=== PATIENT | male | born 1940 | race African-American/Black ===

== ENCOUNTER 2016-10-29 20:30 | Inpatient (IN) | payer MEDICARE, MEDICAID ==
[~2016-10-29] VITALS: Ht 185.4 cm; Wt 81.6 kg
[2016-10-29 20:31] VITALS: BP 127/81
[2016-10-29] MEDS ORDERED: LORazepam Inj 2mg/ml 1ml IV ONE (21:30)
[2016-10-29 22:01] LABS: BASOPHILS % (AUTO) 1.4 % (0.0-2.0); EOSINOPHILS % (AUTO) 4.3 % (0.0-3.0); LYMPHOCYTES % (AUTO) 25.8 % (20.0-45.0); MEAN CORPUSCULAR HEMOGLOBIN 30.4 PG (27.0-31.0); MEAN CORPUSCULAR HGB CONC 32.6 G/DL (32.0-36.0); MEAN CORPUSCULAR VOLUME 93 FL (80-99); MEAN PLATELET VOLUME 6.2 FL (6.5-10.1); MONOCYTES % (AUTO) 9.5 % (1.0-10.0); PLATELET COUNT 182 K/UL (150-450); RED BLOOD COUNT 4.03 M/UL (4.70-6.10); WHITE BLOOD COUNT 8.9 K/UL (4.8-10.8)
[2016-10-29 22:14] LABS: TROPONIN I < 0.30 ng/mL (<=0.30)
[2016-10-29 22:15] LABS: ALANINE AMINOTRANSFERASE 16 U/L (3-41); ALBUMIN/GLOBULIN RATIO 1.3 (1.0-2.7); ANION GAP 12 (5-15); ASPARTATE AMINO TRANSFERASE 18 U/L (5-40); CALCIUM 8.7 mg/dL (8.6-10.2); CARBON DIOXIDE 28 mEQ/L (20-30); CHLORIDE 101 mEQ/L (98-107); CREATININE 0.8 mg/dL (0.7-1.2); HEMOLYSIS 8; POTASSIUM 4.4 mEQ/L (3.4-4.9); SODIUM 141 mEQ/L (135-145); TOTAL PROTEIN 6.7 g/dL (6.6-8.7)
--- NOTE | 2016-10-29 22:15 | Emergency Room Report ---
History of Present Illness General Chief Complaint: General Complaint Source: Patient, EMS Present Illness HPI 75-year-old male who presents ED for evaluation. Per EMS patient is here to be evaluated for possible influenza and/or sepsis. There is a pop rate of influenza at the skilled nursing where the patient resides. Upon arrival patient showing no signs of distress. Patient has dementia. Unable to provide any additional history at this time. No reported fevers or chills. No reported cough. No reported chest pain or shortness of breath. No other aggravating relieving factors. No other associated symptoms Allergies: Coded Allergies: No Known Allergies (Unverified , 10/29/16) Patient History Past Medical History: HTN, GERD, dementia Past Surgical History: none Pertinent Family History: none Social History: Denies: alcohol use, drug use, smoking Immunizations: UTD Reviewed Nursing Documentation: PMH: Agreed, PSxH: Agreed Nursing Documentation-PMH Past Medical History: No History, Except For Hx Cardiac Problems: Yes Hx Hypertension: Yes Hx Gastrointestinal Problems: Yes - GERD History Of Psychiatric Problem: Yes - Dementia, schizopherenia, anemia Review of Systems All Other Systems: limited Physical Exam Vital Signs Date Time Temp Pulse Resp B/P Pulse Ox O2 Delivery O2 Flow Rate FiO2 10/29/16 20:25 97.0 56 16 127/81 94 Room Air Sp02 EP Interpretation: reviewed, normal General Appearance: no apparent distress, alert, GCS 15, non-toxic Head: normocephalic, atraumatic Eyes: bilateral eye PERRL, bilateral eye normal inspection ENT: hearing grossly normal, normal pharynx, no angioedema, normal voice Neck: full range of motion, supple/symm/no masses Respiratory: chest non-tender, lungs clear, normal breath sounds, speaking full sentences Cardiovascular #1: regular rate, rhythm, no edema Cardiovascular #2: 2+ carotid (R), 2+ carotid (L), 2+ radial (R), 2+ radial (L) , 2+ dorsalis pedis (R), 2+ dorsalis pedis (L) Gastrointestinal: normal bowel sounds, non tender, soft, non-distended, no guarding, no rebound Rectal: deferred Genitourinary: normal inspection, no CVA tenderness Musculoskeletal: back normal, gait/station normal, normal range of motion, non- tender Neurologic: other - dementa Psychiatric: other - dementia Reflexes: 3+ bicep (R), 3+ bicep (L), 3+ tricep (R), 3+ tricep (L), 3+ knee (R) , 3+ knee (L) Skin: normal color, no rash, warm/dry, well hydrated Lymphatic: no adenopathy Medical Decision Making Diagnostic Impression: Primary Impression: UTI (urinary tract infection) Qualified Codes: N39.0 - Urinary tract infection, site not specified Additional Impression: Generalized weakness ER Course Hospital Course 75-year-old male presenting to ED with generalized weakness. concern for influenza at skilled nursing Differential diagnoses include: Pneumonia, UTI, sepsis, dehydration, [place]/ unstable angina Clinical course Patient placed on stretcher. On tunnel mucker with stable vitals are ED course. After initial history and physical, I ordered labs, IV fluids, EKG, chest x-ray, blood cultures, UA. Labs - electrolytes ok, no leukocytosis, troponins negative, UA grossly positive for UTI, influenza negative CXR - no acute process Abx given. Case discussed with Dr Bronson and they agreed to admit patient to their service for further care and support I feel this is a highly complex case requiring extensive working including EKG/ Rhythm strip, Xray/CT/US, Blood/urine lab work, repeat exams while in ED, and administration of strong opiates/narcotics for pain control, admission to hospital or close patient follow up. Diagnosis - UTI, generalized weakness Patient admitted to floor in serious condition Labs Test 10/29/16 21:10 10/29/16 22:20 10/30/16 06:40 White Blood Count 8.9 K/UL (4.8-10.8) Red Blood Count 4.03 M/UL (4.70-6.10) Hemoglobin 12.2 G/DL (14.2-18.0) Hematocrit 37.5 % (42.0-52.0) Mean Corpuscular Volume 93 FL (80-99) Mean Corpuscular Hemoglobin 30.4 PG (27.0-31.0) Mean Corpuscular Hemoglobin Concent 32.6 G/DL (32.0-36.0) Red Cell Distribution Width 12.0 % (11.6-14.8) Platelet Count 182 K/UL (150-450) Mean Platelet Volume 6.2 FL (6.5-10.1) Neutrophils (%) (Auto) 59.0 % (45.0-75.0) Lymphocytes (%) (Auto) 25.8 % (20.0-45.0) Monocytes (%) (Auto) 9.5 % (1.0-10.0) Eosinophils (%) (Auto) 4.3 % (0.0-3.0) Basophils (%) (Auto) 1.4 % (0.0-2.0) Sodium Level 141 mEQ/L (135-145) Potassium Level 4.4 mEQ/L (3.4-4.9) Chloride Level 101 mEQ/L (98-107) Carbon Dioxide Level 28 mEQ/L (20-30) Anion Gap 12 (5-15) Blood Urea Nitrogen 20 mg/dL (7-23) Creatinine 0.8 mg/dL (0.7-1.2) Estimat Glomerular Filtration Rate mL/min (>60) Glucose Level 92 mg/dL (74-106) Lactic Acid Level 1.20 mmol/L (0.66-2.22) Calcium Level 8.7 mg/dL (8.6-10.2) Total Bilirubin 0.3 mg/dL (0.0-1.2) Aspartate Amino Transf (AST/SGOT) 18 U/L (5-40) Alanine Aminotransferase (ALT/SGPT) 16 U/L (3-41) Alkaline Phosphatase 63 U/L (40-129) Total Creatine Kinase 102 U/L (38-174) Creatine Kinase MB 2.1 ng/mL (< 6.7) Creatine Kinase MB Relative Index 2.0 Troponin I < 0.30 ng/mL (<=0.30) Total Protein 6.7 g/dL (6.6-8.7) Albumin 3.8 g/dL (3.5-5.2) Globulin 2.9 g/dL Albumin/Globulin Ratio 1.3 (1.0-2.7) Urine Color Yellow Urine Appearance Clear Urine pH 6 (4.5-8.0) Urine Specific [place] 1.015 (1.005-1.035) Urine Protein Negative (NEGATIVE) Urine Glucose (UA) Negative (NEGATIVE) Urine Ketones Negative (NEGATIVE) Urine Occult Blood 2+ (NEGATIVE) Urine Nitrite Positive (NEGATIVE) Urine Bilirubin Negative (NEGATIVE) Urine Urobilinogen Normal MG/DL (0.0-1.0) Urine Leukocyte Esterase 2+ (NEGATIVE) Urine RBC 0-2 /HPF (0 - 0) Urine WBC 2-4 /HPF (0 - 0) Urine Squamous Epithelial Cells Occasional /LPF Urine Bacteria Moderate /HPF (NONE) Hemoglobin A1c 5.5 % (< 6.0) Iron Level 73 ug/dL (59-158) Total Iron Binding Capacity 230 ug/dL (250-400) Percent Iron Saturation 32 % (15-50) Unsaturated Iron Binding 157 ug/dL (112-346) Ferritin 80 ng/mL (10-230) Triglycerides Level 50 mg/dL (< 150) Cholesterol Level 158 mg/dL (< 200) LDL Cholesterol 85 mg/dL (60-99) HDL Cholesterol 63 mg/dL (> 60) Cholesterol/HDL Ratio 2.5 (3.3-4.4) Thyroid Stimulating Hormone (TSH) 1.990 uIU/mL (0.300-4.500) EKG Diagnostic Results Rate: bradycardiac Rhythm: NSR ST Segments: other - RBBB ASA given to the pt in ED: No Rhythm Strip Diag. Results EP Interpretation: yes Rhythm: NSR, no PVC's, no ectopy Chest X-Ray Diagnostic Results EP Interpretation: Yes Findings: no pneumothorax, no acute cardiopulmonary disease, other - R lower atelectasis Number of Views: 1 Last Vital Signs Date Time Temp Pulse Resp B/P Pulse Ox O2 Delivery O2 Flow Rate FiO2 10/29/16 20:25 97.0 56 16 127/81 94 Room Air Status: improved Disposition: ADMITTED INPATIENT Condition: Serious Referrals: NON PHYSICIAN (PCP) JUAN ANTONIO RUSSO M.D. Oct 29, 2016 22:15
[2016-10-29 22:26] LABS: CKMB 2.1 ng/mL (< 6.7)
[2016-10-29 22:38] LABS: APPEARANCE,URINE CLEAR; KETONES,URINE NEGATIVE (NEGATIVE); LEUKOCYTE ESTERASE ,URINE 2+ (NEGATIVE); NITRITE,URINE POSITIVE (NEGATIVE); PH,URINE 6 (4.5-8.0); PROTEIN,URINE NEGATIVE (NEGATIVE); UROBILINOGEN,URINE NORMAL MG/DL (0.0-1.0)
[2016-10-29 22:40] VITALS: BP 144/79
[2016-10-29 22:45] LABS: RBC,URINE 0-2 /HPF (0 - 0); SQUAMOUS EPITHELIAL CELL,UR OCCASIONAL /LPF (NONE/OCC)
[2016-10-29] MEDS ORDERED: cefTRIAXone 1 GM in D5W 55 ML IVPB ONE (22:45)
[2016-10-29 22:47] LABS: BACTERIA,URINE MODERATE /HPF
[2016-10-30] VITALS: BP 155/93
[2016-10-30] MEDS ORDERED: ALUM-MAG HYDRO360 ML PO (03:40)
[2016-10-30] MEDS ORDERED: CRANBERRY450 M3 PO (03:40)
[2016-10-30] MEDS ORDERED: LOSARTAN POTASS25 M1 PO (03:40)
[2016-10-30] MEDS ORDERED: MOM30 ML ORAL (03:40)
[2016-10-30] MEDS ORDERED: MULTIVITAMINS1 EAC8 ORAL (03:40)
[2016-10-30] MEDS ORDERED: ATIVAN1 MG ORAL (03:40)
[2016-10-30] MEDS ORDERED: ASPIRIN-LOW81 MG ORAL (03:40)
[2016-10-30] MEDS ORDERED: TYLENOL325 MG ORAL (03:40)
[2016-10-30] MEDS ORDERED: NAMENDA5 MG ORAL (03:40)
[2016-10-30] MEDS ORDERED: ATORVASTATIN CA20 MG ORAL (03:40)
[2016-10-30] MEDS ORDERED: TEMAZEPAM15 MG ORAL (03:40)
[2016-10-30] MEDS ORDERED: COLACE100 MG/10 ORAL (03:40)
[2016-10-30] MEDS ORDERED: SEROQUEL50 MG ORAL (03:40)
[2016-10-30 04:00] VITALS: BP 149/35
[2016-10-30] MEDS ORDERED: LORazepam 1mg tab ORAL PRN (05:45)
[2016-10-30] MEDS ORDERED: Mylanta II UD 30ml ORAL PRN (05:45)
[2016-10-30 07:38] LABS: HEMOGLOBIN A1C 5.5 % (< 6.0)
[2016-10-30 07:50] LABS: HEMOLYSIS 21; IRON 73 ug/dL (59-158); TOTAL IRON BINDING CAPACITY 230 ug/dL (250-400)
[2016-10-30 07:51] LABS: THYROID STIMULATING HORMONE 1.99 uIU/mL (0.300-4.500)
[2016-10-30 07:52] LABS: CHOLESTEROL/HDL RATIO 2.5 (3.3-4.4)
[2016-10-30 08:33] VITALS: BP 141/102
[2016-10-30] MEDS: Heparin 5000 units/ml inj SUBQ SCH ×2 (09:00→21:00)
[2016-10-30] MEDS ORDERED: Oseltamivir 75mg cap ORAL SCH (09:00)
[2016-10-30] MEDS: Multivitamin w/Minerals tab ORAL SCH (09:33)
[2016-10-30] MEDS: Aspirin EC 81mg tab ORAL SCH (09:33)
[2016-10-30] MEDS: Docusate 100mg cap ORAL SCH ×2 (09:33→19:22)
[2016-10-30] MEDS: Memantine 5 MG TAB ORAL SCH ×2 (09:33→19:22)
[2016-10-30] MEDS: Pantoprazole Inj IVP SCH (09:34)
--- NOTE | 2016-10-30 09:35 | History & Physical ---
History and Physical History & Physicial seen and examined. Dictation completed Daisy Bronson MD Oct 30, 2016 09:35
--- NOTE | 2016-10-30 10:53 | Diagnostic Imaging Report ---
Indication: Chest Pain Comparison: None A single view chest radiograph was obtained. Findings: No definite infiltrate or pulmonary vascular congestion identified. The heart is enlarged. The aorta is mildly enlarged consistent with atherosclerotic vascular disease. The bones are osteopenic. Impression: No acute disease
--- NOTE | 2016-10-30 10:58 | Consultation ---
Consult Note Assessment/Plan ID Dic # [id number] A: Probable Sepsis ALOC Flu Neg CAD HTN Schizo Anxiety Gen weakness P: Cont pt on IV Rocephin d# 2 , DC Tamiflu, monitor CBC monitor BMP monitor C Xray ( P ) monitor Cx ( Bl, Ur ) Thank you OMI HERNANDES M.D. Oct 30, 2016 10:58
[2016-10-30 11:40] VITALS: BP 122/66
--- NOTE | 2016-10-30 15:59 | History and Physical Report ---
DATE OF ADMISSION: 10/29/2016 SOURCE OF INFORMATION: EMR. HISTORY OF PRESENT ILLNESS: The patient is a 75-year-old, demented patient. He is a resident of a nursing home facility. He has been reported to suffer from general weakness. According to them, there is a report of the spread of a flu virus in the facility. Therefore, the patient has been referred for additional evaluation. At the time of initial evaluation in the emergency room, vital signs show mild hypothermia and abnormal urinalysis. The patient is admitted for additional evaluation including, but not excluding the sepsis. REVIEW OF SYSTEMS: Limited as the patient is grossly demented. However, there is no chest pain. No severe shortness of breath. No severe pain in the extremities. No abnormal bleeding. No severe headache. PAST SURGICAL HISTORY: No documented surgeries. PAST MEDICAL HISTORY: Dementia, hypertension, GERD, coronary artery disease, and psychiatric disorder. FAMILY HISTORY: Reviewed, noncontributory. SOCIAL HISTORY: The patient is currently a resident of a nursing home facility. No documented history of illicit drug abuse, smoking, or alcohol abuse. MEDICATIONS: Outpatient medications including, but not limited to acetaminophen, atorvastatin, losartan, Namenda, and Seroquel. PHYSICAL EXAMINATION: VITAL SIGNS: Blood pressure 130/80, temperature 98.2, pulse oximetry 98% on room air, respiratory rate 18, and pulse rate 60. HEAD AND NECK: Atraumatic and normocephalic. CHEST: Clear to auscultation. HEART: S1 and S2. Regular rate and rhythm. ABDOMEN: Soft. No organomegaly. MUSCULOSKELETAL: Atrophied musculature. Decreased volume/mass of the muscles. NEUROLOGY: The patient is awake, alert, and oriented x1. Grossly demented. LABORATORY DATA: Lab results dated 10/29/2016, sodium 141, potassium 4.4, BUN 20, and creatinine 0.8. ALT and AST are within normal limits. LDL 85. TSH 1.9. WBC 8.9, hemoglobin 12.2, and platelets 182,000. Urinalysis positive for nitrite and positive for 2+ leukocytes and positive for moderate bacteria. MICROBIOLOGY: Negative for influenza type A and B. ASSESSMENT: 1. Generalized weakness. 2. Healthcare-associated urinary tract infection. 3. Psychiatric disorder. 4. Hypertension. 5. Coronary artery disease - history of. 6. Gastrointestinal and deep vein thrombosis prophylaxis. PLAN OF CARE: Given the spread of flu in the patient's residential facility, I would consult Infectious Disease, Dr. Hammonds. We will continue with current management. I will hold on initiating any antibiotic regimen for the UA, defer to ID. Daisy Bronson M.D. DR: LEE JOB#: [id number] CC:
--- NOTE | 2016-10-30 16:19 | Consultation ---
DATE OF CONSULTATION: 10/30/2016 CONSULTING PHYSICIAN: Case Hammonds M.D. REFERRING PHYSICIAN: Daisy Bronson M.D. REASON FOR CONSULTATION: Evaluation of the patient for possible sepsis and antibiotic management. HISTORY OF PRESENT ILLNESS: The patient is a 75-year-old, very poor historian, who was brought to this [facility] apparently due to generalized weakness and worsening of mental status. The patient is unable to provide information. He has dementia and schizophrenia. The patient's rapid influenza test came negative and cultures are pending. Infectious Disease consultation has been consulted for further evaluation of the patient and antibiotic management. PAST MEDICAL HISTORY: 1. CAD. 2. Hypertension. 3. Schizophrenia. 4. Anxiety. 5. Probable dementia. ALLERGIES: No known drug allergies. SOCIAL HISTORY: The patient lives in home. FAMILY HISTORY: Noncontributory. REVIEW OF SYSTEMS: Unobtainable. MEDICATIONS: Tamiflu. The patient received one dose of Rocephin in the emergency room. PHYSICAL EXAMINATION: VITAL SIGNS: Pulse 86, respiratory rate 18, and temperature 97.7. HEENT: Mild pale conjunctivae. No icterus. NECK: No lymphadenopathy. CHEST: Coarse breathing sounds. HEART: S1 and S2. ABDOMEN: Soft. EXTREMITIES: No cyanosis. NEUROLOGIC: Awake. LABORATORY DATA: White blood cells 8.9, hemoglobin 12, and platelets 182,000. UA unremarkable. BUN 20 and creatinine 0.8. ALT, AST, and alkaline phosphatase are within normal range. Blood culture pending. Urine culture is pending. ASSESSMENT: The patient is a 75-year-old male with multiple medical problems as listed above who has been transferred here due to generalized weakness and altered level of consciousness. The patient is afebrile. There is no leukocytosis, and rapid influenza test is negative. Chest x-ray however is pending. At this time, the patient will benefit from empiric antibiotic treatment till we get further information from cultures and labs. PLAN: 1. We will continue the patient on IV Rocephin. 2. Discontinue Tamiflu. 3. Monitor CBC. 4. Monitor BMP. 5. Monitor chest x-ray. 6. Monitor cultures, blood and urine. 7. Based on the patient's clinical course and labs, we will do further recommendations. Thank you, Dr. Brnoson, for allowing us to participate in the care of this patient. I will follow the patient with you during this hospitalization. Case Hammonds M.D. DR: NIMCO JOB#: [id number] CC:
[2016-10-30 16:56] VITALS: BP 142/64
[2016-10-30] MEDS: Milk of Magnesia 30ml Ud ORAL SCH (21:00)
[2016-10-30] MEDS: Losartan 25mg tab ORAL SCH (21:00)
[2016-10-30 23:09] VITALS: BP 143/87
[2016-10-31] VITALS: BP 119/84
[2016-10-31] MEDS: cefTRIAXone 1 GM in D5W 55 ML IVPB SCH ×2 (02:50→21:21)
[2016-10-31 04:34] VITALS: BP 147/58
[2016-10-31 08:15] VITALS: BP 151/102
[2016-10-31 08:21] LABS: BASOPHILS % (AUTO) 0.8 % (0.0-2.0); EOSINOPHILS % (AUTO) 1.9 % (0.0-3.0); LYMPHOCYTES % (AUTO) 17.7 % (20.0-45.0); MEAN CORPUSCULAR HEMOGLOBIN 30.5 PG (27.0-31.0); MEAN CORPUSCULAR HGB CONC 33.2 G/DL (32.0-36.0); MEAN CORPUSCULAR VOLUME 92 FL (80-99); MEAN PLATELET VOLUME 6.1 FL (6.5-10.1); MONOCYTES % (AUTO) 8.9 % (1.0-10.0); NEUTROPHILS % (AUTO) 70.7 % (45.0-75.0); PLATELET COUNT 208 K/UL (150-450); RED BLOOD COUNT 4.41 M/UL (4.70-6.10); RED CELL DISTRIBUTION WIDTH 11.6 % (11.6-14.8); WHITE BLOOD COUNT 10.4 K/UL (4.8-10.8)
[2016-10-31] MEDS: Docusate 100mg cap ORAL SCH ×2 (08:21→17:40)
[2016-10-31] MEDS: Pantoprazole Inj IVP SCH (08:21)
[2016-10-31] MEDS: Aspirin EC 81mg tab ORAL SCH (08:21)
[2016-10-31] MEDS: Multivitamin w/Minerals tab ORAL SCH (08:21)
[2016-10-31] MEDS: Memantine 5 MG TAB ORAL SCH ×2 (08:21→17:40)
[2016-10-31] MEDS: Heparin 5000 units/ml inj SUBQ SCH ×2 (08:33→21:00)
[2016-10-31 08:36] LABS: ALANINE AMINOTRANSFERASE 14 U/L (3-41); ALBUMIN/GLOBULIN RATIO 1.1 (1.0-2.7); ANION GAP 15 (5-15); ASPARTATE AMINO TRANSFERASE 16 U/L (5-40); CARBON DIOXIDE 27 mEQ/L (20-30); CHLORIDE 98 mEQ/L (98-107); CREATININE 0.8 mg/dL (0.7-1.2); HEMOLYSIS 4; POTASSIUM 4.1 mEQ/L (3.4-4.9); SODIUM 140 mEQ/L (135-145); TOTAL PROTEIN 7.2 g/dL (6.6-8.7)
[2016-10-31 09:21] LABS: BILIRUBIN,DIRECT 0.2 mg/dL (0.1-0.3)
--- NOTE | 2016-10-31 10:39 | General Progress Note ---
Assessment/Plan Status: stable Assessment/Plan 1. Generalized weakness. 2. Healthcare-associated urinary tract infection. 3. Psychiatric disorder. 4. Hypertension. 5. Coronary artery disease - history of. 6. Gastrointestinal and deep vein thrombosis prophylaxis. Plan: Psych Dr Dumont notified Agree with current management ID note reviewed Subjective ROS Limited/Unobtainable: Yes Allergies: Coded Allergies: No Known Allergies (Unverified , 10/29/16) Objective Last 24 Hour Vital Signs Date Time Temp Pulse Resp B/P Pulse Ox O2 Delivery O2 Flow Rate FiO2 10/31/16 08:15 98.3 63 21 151/102 97 Room Air 10/31/16 04:34 97.7 78 20 147/58 97 Room Air 10/31/16 04:33 97.9 78 20 97 Room Air 10/30/16 23:09 56 20 143/87 95 Room Air 10/30/16 20:00 97.2 90 16 95 10/30/16 16:56 97.6 55 18 142/64 95 Room Air 10/30/16 11:40 97.0 77 16 122/66 98 Room Air Intake and Output 10/30/16 10/31/16 19:00 07:00 Intake Total 600 ml 300 ml Output Total 1600 ml 2100 ml Balance -1000 ml -1800 ml Intake Oral 600 ml 300 ml Output Urine Total 1600 ml 2100 ml # Voids 1 Laboratory Tests 10/31/16 07:10: White Blood Count 10.4, Red Blood Count 4.41L, Hemoglobin 13.5L, Hematocrit 40.6L, Mean Corpuscular Volume 92, Mean Corpuscular Hemoglobin 30.5, Mean Corpuscular Hemoglobin Concent 33.2, Red Cell Distribution Width 11.6, Platelet Count 208, Mean Platelet Volume 6.1L, Neutrophils (%) (Auto) 70.7, Lymphocytes ( %) (Auto) 17.7L, Monocytes (%) (Auto) 8.9, Eosinophils (%) (Auto) 1.9, Basophils (%) (Auto) 0.8, Sodium Level 140, Potassium Level 4.1, Chloride Level 98, Carbon Dioxide Level 27, Anion Gap 15, Blood Urea Nitrogen 13, Creatinine 0.8, Estimat Glomerular Filtration Rate , Glucose Level 86, Calcium Level 9.0, Total Bilirubin 1.1, Direct Bilirubin 0.2, Aspartate Amino Transf (AST/SGOT) 16 , Alanine Aminotransferase (ALT/SGPT) 14, Alkaline Phosphatase 67, Total Protein 7.2, Albumin 3.8, Globulin 3.4, Albumin/Globulin Ratio 1.1 Height (Feet): 6 Height (Inches): 1.00 Weight (Pounds): 180 General Appearance: no apparent distress EENT: PERRL/EOMI Neck: supple Cardiovascular: normal rate Respiratory/Chest: lungs clear Abdomen: soft Extremities: non-tender Neurologic: disoriented, other - demted at his base line Daisy Bronson MD Oct 31, 2016 10:39
[2016-10-31 12:15] VITALS: BP 154/84
--- NOTE | 2016-10-31 13:50 | Infectious Diseases Prog Note ---
Assessment/Plan Assessment/Plan ASSESSMENT: 75 y/o male with: // Generalized weakness r/o infection - Cx NGTD - CXR: NAF // Negative influenza // Afebrile without leukocytosis h/o CAD - trop(-) x1 Schizo NKDA Full Code PLAN: - limit empiric rocephin after today d# 3, monitor pt off of ABX - f/u final cultures - monitor CBC, temperatures - monitor BMP Subjective Allergies: Coded Allergies: No Known Allergies (Unverified , 10/29/16) Subjective remains afebrile. comfortable Objective Vital Signs Last 24 Hour Vital Signs Date Time Temp Pulse Resp B/P Pulse Ox O2 Delivery O2 Flow Rate FiO2 10/31/16 12:15 97.8 94 20 154/84 94 Room Air 10/31/16 08:15 98.3 63 21 151/102 97 Room Air 10/31/16 04:34 97.7 78 20 147/58 97 Room Air 10/31/16 04:33 97.9 78 20 97 Room Air 10/30/16 23:09 56 20 143/87 95 Room Air 10/30/16 20:00 97.2 90 16 95 10/30/16 16:56 97.6 55 18 142/64 95 Room Air Height (Feet): 6 Height (Inches): 1.00 Weight (Pounds): 180 General Appearance: no acute distress Respiratory/Chest: no respiratory distress Cardiovascular: normal rate, regular rhythm Abdomen: normal bowel sounds, soft, non tender, non distended Microbiology Date/Time Source Procedure Growth Status 10/29/16 21:10 Blood Blood Culture - Preliminary NO GROWTH AFTER 24 HOURS Resulted 10/29/16 20:55 Blood Blood Culture - Preliminary NO GROWTH AFTER 24 HOURS Resulted 10/29/16 22:30 Nasal Nares Influenza Types A,B Antigen (CIARA) - Final Complete 10/29/16 22:20 Urine,Clean Catch Urine Culture - Preliminary Resulted 10/29/16 23:00 Rectum VRE Culture - Final NO VANCOMYCIN RESISTANT ENTEROCOCCUS ... Complete Laboratory Tests Test 10/31/16 07:10 White Blood Count 10.4 K/UL (4.8-10.8) Red Blood Count 4.41 M/UL (4.70-6.10) L Hemoglobin 13.5 G/DL (14.2-18.0) L Hematocrit 40.6 % (42.0-52.0) L Mean Corpuscular Volume 92 FL (80-99) Mean Corpuscular Hemoglobin 30.5 PG (27.0-31.0) Mean Corpuscular Hemoglobin Concent 33.2 G/DL (32.0-36.0) Red Cell Distribution Width 11.6 % (11.6-14.8) Platelet Count 208 K/UL (150-450) Mean Platelet Volume 6.1 FL (6.5-10.1) L Neutrophils (%) (Auto) 70.7 % (45.0-75.0) Lymphocytes (%) (Auto) 17.7 % (20.0-45.0) L Monocytes (%) (Auto) 8.9 % (1.0-10.0) Eosinophils (%) (Auto) 1.9 % (0.0-3.0) Basophils (%) (Auto) 0.8 % (0.0-2.0) Sodium Level 140 mEQ/L (135-145) Potassium Level 4.1 mEQ/L (3.4-4.9) Chloride Level 98 mEQ/L (98-107) Carbon Dioxide Level 27 mEQ/L (20-30) Anion Gap 15 (5-15) Blood Urea Nitrogen 13 mg/dL (7-23) Creatinine 0.8 mg/dL (0.7-1.2) Estimat Glomerular Filtration Rate mL/min (>60) Glucose Level 86 mg/dL (74-106) Calcium Level 9.0 mg/dL (8.6-10.2) Total Bilirubin 1.1 mg/dL (0.0-1.2) Direct Bilirubin 0.2 mg/dL (0.1-0.3) Aspartate Amino Transf (AST/SGOT) 16 U/L (5-40) Alanine Aminotransferase (ALT/SGPT) 14 U/L (3-41) Alkaline Phosphatase 67 U/L (40-129) Total Protein 7.2 g/dL (6.6-8.7) Albumin 3.8 g/dL (3.5-5.2) Globulin 3.4 g/dL Albumin/Globulin Ratio 1.1 (1.0-2.7) Current Medications Medications (Trade) Dose Ordered Sig/Laura Route PRN Reason Start Time Stop Time Status Last Admin Dose Admin Acetaminophen (Tylenol) 650 mg Q4H PRN ORAL Mild Pain/Temp > 100.5 10/30/16 05:45 11/29/16 05:44 Al Hydroxide/Mg Hydroxide (Mylanta II) 30 ml Q4H PRN ORAL Abdominal cramps 10/30/16 05:45 11/29/16 05:44 Aspirin (Ecotrin) 81 mg DAILY ORAL 10/30/16 09:00 11/29/16 08:59 10/31/16 08:21 Atorvastatin Calcium (Lipitor) 10 mg BEDTIME ORAL 10/30/16 21:00 11/29/16 20:59 Ceftriaxone Sodium/Dextrose (Rocephin/D5W) 55 ml @ 110 mls/hr Q24H IVPB 10/30/16 22:00 11/06/16 21:59 10/31/16 02:50 Docusate Sodium (Colace) 100 mg TWICE A DAY ORAL 10/30/16 09:00 11/29/16 08:59 10/31/16 08:21 Heparin Sodium (Porcine) 5000 units 5,000 units EVERY 12 HOURS SUBQ 10/30/16 09:00 11/29/16 08:59 Lorazepam (Ativan) 1 mg Q6H PRN ORAL For Anxiety 10/30/16 05:45 11/06/16 05:44 Losartan Potassium (Cozaar) 25 mg BEDTIME ORAL 10/30/16 21:00 11/29/16 20:59 Magnesium Hydroxide (Mom) 30 ml BEDTIME ORAL 10/30/16 21:00 11/29/16 20:59 Memantine (Namenda) 5 mg TWICE A DAY ORAL 10/30/16 09:00 11/29/16 08:59 10/31/16 08:21 Multivitamins Therapeutic (Therapeutic Multivitamin) 1 ea DAILY ORAL 10/30/16 09:00 11/29/16 08:59 10/31/16 08:21 Pantoprazole (Protonix) 40 mg DAILY IVP 10/30/16 09:00 11/29/16 08:59 10/31/16 08:21 Quetiapine Fumarate (SEROquel) 50 mg Q12HR ORAL 10/30/16 09:00 11/29/16 08:59 10/31/16 08:20 Temazepam (Restoril) 15 mg BEDTIME PRN ORAL Insomnia 10/30/16 05:45 11/06/16 05:44 DRU GODINEZ Oct 31, 2016 13:50
[2016-10-31 16:41] VITALS: BP 131/45
[2016-10-31] MEDS: Losartan 25mg tab ORAL SCH (21:00)
[2016-10-31] MEDS: Milk of Magnesia 30ml Ud ORAL SCH (21:21)
[2016-11-01] VITALS: BP 119/84
[2016-11-01 04:08] VITALS: BP 113/73
[2016-11-01 07:44] LABS: BASOPHILS % (AUTO) 0.9 % (0.0-2.0); EOSINOPHILS % (AUTO) 5.1 % (0.0-3.0); LYMPHOCYTES % (AUTO) 25.9 % (20.0-45.0); MEAN CORPUSCULAR HEMOGLOBIN 30.6 PG (27.0-31.0); MEAN CORPUSCULAR HGB CONC 33.3 G/DL (32.0-36.0); MEAN CORPUSCULAR VOLUME 92 FL (80-99); MONOCYTES % (AUTO) 10.2 % (1.0-10.0); PLATELET COUNT 224 K/UL (150-450); RED BLOOD COUNT 4.31 M/UL (4.70-6.10); WHITE BLOOD COUNT 9.3 K/UL (4.8-10.8)
[2016-11-01 07:49] VITALS: BP 134/75
[2016-11-01 07:55] LABS: ALANINE AMINOTRANSFERASE 12 U/L (3-41); ALBUMIN/GLOBULIN RATIO 1.1 (1.0-2.7); ANION GAP 11 (5-15); ASPARTATE AMINO TRANSFERASE 14 U/L (5-40); CARBON DIOXIDE 29 mEQ/L (20-30); CHLORIDE 103 mEQ/L (98-107); CREATININE 0.8 mg/dL (0.7-1.2); HEMOLYSIS 7; POTASSIUM 4.3 mEQ/L (3.4-4.9); SODIUM 143 mEQ/L (135-145)
--- NOTE | 2016-11-01 08:39 | General Progress Note ---
Assessment/Plan Status: stable Assessment/Plan 1. Generalized weakness. 2. Healthcare-associated urinary tract infection. 3. Psychiatric disorder. 4. Hypertension. 5. Coronary artery disease - history of. 6. Gastrointestinal and deep vein thrombosis prophylaxis. Plan: Agree with current management ID note reviewed Subjective ROS Limited/Unobtainable: Yes - appears comfortable Allergies: Coded Allergies: No Known Allergies (Unverified , 10/29/16) Objective Last 24 Hour Vital Signs Date Time Temp Pulse Resp B/P Pulse Ox O2 Delivery O2 Flow Rate FiO2 11/01/16 07:49 97.0 63 20 134/75 93 Room Air 11/01/16 04:08 98.0 68 20 113/73 98 Room Air 11/01/16 00:00 98.0 87 20 119/84 99 Room Air 10/31/16 21:00 131/45 10/31/16 16:41 97.5 65 14 131/45 95 Room Air 10/31/16 12:15 97.8 94 20 154/84 94 Room Air Intake and Output 10/31/16 11/01/16 19:00 07:00 Intake Total 490 ml 55 ml Output Total 500 ml 300 ml Balance -10 ml -245 ml Intake Oral 490 ml IV Total 55 ml Output Urine Total 500 ml 300 ml Laboratory Tests 11/01/16 06:25: White Blood Count 9.3, Red Blood Count 4.31L, Hemoglobin 13.2L, Hematocrit 39.5L , Mean Corpuscular Volume 92, Mean Corpuscular Hemoglobin 30.6, Mean Corpuscular Hemoglobin Concent 33.3, Red Cell Distribution Width 12.0, Platelet Count 224, Mean Platelet Volume 6.0L, Neutrophils (%) (Auto) 58.0, Lymphocytes ( %) (Auto) 25.9, Monocytes (%) (Auto) 10.2H, Eosinophils (%) (Auto) 5.1H, Basophils (%) (Auto) 0.9, Sodium Level 143, Potassium Level 4.3, Chloride Level 103, Carbon Dioxide Level 29, Anion Gap 11, Blood Urea Nitrogen 15, Creatinine 0.8, Estimat Glomerular Filtration Rate , Glucose Level 83, Calcium Level 9.0, Total Bilirubin 0.7, Aspartate Amino Transf (AST/SGOT) 14, Alanine Aminotransferase (ALT/SGPT) 12, Alkaline Phosphatase 64, Total Protein 7.0, Albumin 3.7, Globulin 3.3, Albumin/Globulin Ratio 1.1 Height (Feet): 6 Height (Inches): 1.00 Weight (Pounds): 180 General Appearance: no apparent distress EENT: PERRL/EOMI Neck: supple Cardiovascular: normal rate Respiratory/Chest: lungs clear Abdomen: soft Extremities: non-tender Neurologic: disoriented, other - demented Daisy Bronson MD Nov 01, 2016 08:39
[2016-11-01] MEDS: Heparin 5000 units/ml inj SUBQ SCH ×2 (09:00→21:00)
--- NOTE | 2016-11-01 10:08 | Cardiology Report ---
APPROVED REPORT EKG Measurement Heart [id number] Sinus bradycardia Right bundle branch block Septal infarct, age undetermined Abnormal ECG
[2016-11-01] MEDS: Docusate 100mg cap ORAL SCH ×2 (10:39→17:38)
[2016-11-01] MEDS: Aspirin EC 81mg tab ORAL SCH (10:39)
[2016-11-01] MEDS: Memantine 5 MG TAB ORAL SCH ×2 (10:39→17:38)
[2016-11-01] MEDS: Multivitamin w/Minerals tab ORAL SCH (10:39)
[2016-11-01] MEDS: Pantoprazole Inj IVP SCH (10:40)
[2016-11-01 12:06] VITALS: BP 130/82
--- NOTE | 2016-11-01 15:58 | Infectious Diseases Prog Note ---
Assessment/Plan Assessment/Plan ASSESSMENT: 75 y/o male with: // GPC urinary colonization - UA benign, asymptomatic // Negative influenza // Afebrile without leukocytosis Generalized weakness h/o CAD - trop(-) x1 Schizo NKDA Full Code PLAN: - monitor pt off of ABX ( 10/31 SP rocephin d# 3 ) - f/u final cultures - monitor CBC, temperatures - monitor BMP Subjective Allergies: Coded Allergies: No Known Allergies (Unverified , 10/29/16) Subjective remains afebrile. comfortable Objective Vital Signs Last 24 Hour Vital Signs Date Time Temp Pulse Resp B/P Pulse Ox O2 Delivery O2 Flow Rate FiO2 11/01/16 12:06 98.0 60 19 130/82 100 Room Air 11/01/16 07:49 97.0 63 20 134/75 93 Room Air 11/01/16 04:08 98.0 68 20 113/73 98 Room Air 11/01/16 00:00 98.0 87 20 119/84 99 Room Air 10/31/16 21:00 131/45 10/31/16 16:41 97.5 65 14 131/45 95 Room Air Height (Feet): 6 Height (Inches): 1.00 Weight (Pounds): 180 General Appearance: no acute distress Respiratory/Chest: no respiratory distress Cardiovascular: normal rate, regular rhythm Abdomen: normal bowel sounds, soft, non tender, non distended Microbiology Date/Time Source Procedure Growth Status 10/29/16 21:10 Blood Blood Culture - Preliminary NO GROWTH AFTER 48 HOURS Resulted 10/29/16 20:55 Blood Blood Culture - Preliminary NO GROWTH AFTER 48 HOURS Resulted 10/29/16 23:00 Nasal Nares MRSA Culture - Final NO METHICILLIN RESISTANT STAPH AUREUS... Complete 10/29/16 22:30 Nasal Nares Influenza Types A,B Antigen (CIARA) - Final Complete 10/29/16 22:20 Urine,Clean Catch Urine Culture - Preliminary Gram Positive Cocci Resulted 10/29/16 23:00 Rectum VRE Culture - Final NO VANCOMYCIN RESISTANT ENTEROCOCCUS ... Complete Laboratory Tests Test 11/01/16 06:25 White Blood Count 9.3 K/UL (4.8-10.8) Red Blood Count 4.31 M/UL (4.70-6.10) L Hemoglobin 13.2 G/DL (14.2-18.0) L Hematocrit 39.5 % (42.0-52.0) L Mean Corpuscular Volume 92 FL (80-99) Mean Corpuscular Hemoglobin 30.6 PG (27.0-31.0) Mean Corpuscular Hemoglobin Concent 33.3 G/DL (32.0-36.0) Red Cell Distribution Width 12.0 % (11.6-14.8) Platelet Count 224 K/UL (150-450) Mean Platelet Volume 6.0 FL (6.5-10.1) L Neutrophils (%) (Auto) 58.0 % (45.0-75.0) Lymphocytes (%) (Auto) 25.9 % (20.0-45.0) Monocytes (%) (Auto) 10.2 % (1.0-10.0) H Eosinophils (%) (Auto) 5.1 % (0.0-3.0) H Basophils (%) (Auto) 0.9 % (0.0-2.0) Sodium Level 143 mEQ/L (135-145) Potassium Level 4.3 mEQ/L (3.4-4.9) Chloride Level 103 mEQ/L (98-107) Carbon Dioxide Level 29 mEQ/L (20-30) Anion Gap 11 (5-15) Blood Urea Nitrogen 15 mg/dL (7-23) Creatinine 0.8 mg/dL (0.7-1.2) Estimat Glomerular Filtration Rate mL/min (>60) Glucose Level 83 mg/dL (74-106) Calcium Level 9.0 mg/dL (8.6-10.2) Total Bilirubin 0.7 mg/dL (0.0-1.2) Aspartate Amino Transf (AST/SGOT) 14 U/L (5-40) Alanine Aminotransferase (ALT/SGPT) 12 U/L (3-41) Alkaline Phosphatase 64 U/L (40-129) Total Protein 7.0 g/dL (6.6-8.7) Albumin 3.7 g/dL (3.5-5.2) Globulin 3.3 g/dL Albumin/Globulin Ratio 1.1 (1.0-2.7) Current Medications Medications (Trade) Dose Ordered Sig/Laura Route PRN Reason Start Time Stop Time Status Last Admin Dose Admin Acetaminophen (Tylenol) 650 mg Q4H PRN ORAL Mild Pain/Temp > 100.5 10/30/16 05:45 11/29/16 05:44 Al Hydroxide/Mg Hydroxide (Mylanta II) 30 ml Q4H PRN ORAL Abdominal cramps 10/30/16 05:45 11/29/16 05:44 Aspirin (Ecotrin) 81 mg DAILY ORAL 10/30/16 09:00 11/29/16 08:59 11/01/16 10:39 Atorvastatin Calcium (Lipitor) 10 mg BEDTIME ORAL 10/30/16 21:00 11/29/16 20:59 10/31/16 21:22 Docusate Sodium (Colace) 100 mg TWICE A DAY ORAL 10/30/16 09:00 11/29/16 08:59 11/01/16 10:39 Heparin Sodium (Porcine) (Heparin 5000 units/ml) 5,000 units EVERY 12 HOURS SUBQ 10/30/16 09:00 11/29/16 08:59 Lorazepam (Ativan) 1 mg Q6H PRN ORAL For Anxiety 10/30/16 05:45 11/06/16 05:44 Losartan Potassium (Cozaar) 25 mg BEDTIME ORAL 10/30/16 21:00 11/29/16 20:59 Magnesium Hydroxide (Mom) 30 ml BEDTIME ORAL 10/30/16 21:00 11/29/16 20:59 10/31/16 21:21 Memantine (Namenda) 5 mg TWICE A DAY ORAL 10/30/16 09:00 11/29/16 08:59 11/01/16 10:39 Multivitamins Therapeutic (Therapeutic Multivitamin) 1 ea DAILY ORAL 10/30/16 09:00 11/29/16 08:59 11/01/16 10:39 Pantoprazole (Protonix) 40 mg DAILY IVP 10/30/16 09:00 11/29/16 08:59 11/01/16 10:40 Quetiapine Fumarate (SEROquel) 50 mg Q12HR ORAL 10/30/16 09:00 11/29/16 08:59 11/01/16 10:39 Temazepam (Restoril) 15 mg BEDTIME PRN ORAL Insomnia 10/30/16 05:45 11/06/16 05:44 DRU GODINEZ Nov 01, 2016 15:57
[2016-11-01 16:00] VITALS: BP 128/51
[2016-11-01] MEDS ORDERED: NS 275ml ONE (16:46)
[2016-11-01] MEDS ORDERED: Tubing IV Secondary IV ONE (16:46)
[2016-11-01 20:02] VITALS: BP 140/98
[2016-11-01] MEDS: Losartan 25mg tab ORAL SCH (21:00)
[2016-11-01] MEDS: Milk of Magnesia 30ml Ud ORAL SCH (21:00)
[2016-11-02] VITALS: BP 143/92
[2016-11-02 04:00] VITALS: BP 145/89
[2016-11-02 07:45] VITALS: BP 129/67
[2016-11-02] MEDS: Memantine 5 MG TAB ORAL SCH (08:35)
[2016-11-02] MEDS: Multivitamin w/Minerals tab ORAL SCH (08:35)
[2016-11-02] MEDS: Pantoprazole Inj IVP SCH (08:36)
[2016-11-02] MEDS: Heparin 5000 units/ml inj SUBQ SCH (08:36)
[2016-11-02] MEDS: Aspirin EC 81mg tab ORAL SCH (08:36)
[2016-11-02] MEDS: Docusate 100mg cap ORAL SCH (08:36)
[2016-11-02 10:02] LABS: BASOPHILS % (AUTO) 0.9 % (0.0-2.0); EOSINOPHILS % (AUTO) 5.5 % (0.0-3.0); LYMPHOCYTES % (AUTO) 20.5 % (20.0-45.0); MEAN CORPUSCULAR HEMOGLOBIN 30.4 PG (27.0-31.0); MEAN CORPUSCULAR HGB CONC 33.3 G/DL (32.0-36.0); MEAN CORPUSCULAR VOLUME 92 FL (80-99); MEAN PLATELET VOLUME 6.2 FL (6.5-10.1); NEUTROPHILS % (AUTO) 63.1 % (45.0-75.0); PLATELET COUNT 225 K/UL (150-450); RED BLOOD COUNT 4.25 M/UL (4.70-6.10); RED CELL DISTRIBUTION WIDTH 11.8 % (11.6-14.8); WHITE BLOOD COUNT 8.3 K/UL (4.8-10.8)
[2016-11-02 10:16] LABS: ALANINE AMINOTRANSFERASE 10 U/L (3-41); ANION GAP 11 (5-15); ASPARTATE AMINO TRANSFERASE 14 U/L (5-40); CALCIUM 8.7 mg/dL (8.6-10.2); CARBON DIOXIDE 28 mEQ/L (20-30); CHLORIDE 103 mEQ/L (98-107); CREATININE 0.8 mg/dL (0.7-1.2); HEMOLYSIS 11; POTASSIUM 4.1 mEQ/L (3.4-4.9); SODIUM 142 mEQ/L (135-145); TOTAL PROTEIN 6.8 g/dL (6.6-8.7)
[2016-11-02 11:28] VITALS: BP 146/68
--- NOTE | 2016-11-02 13:54 | General Progress Note ---
Assessment/Plan Status: stable Assessment/Plan 1. Generalized weakness. 2. Healthcare-associated urinary tract infection. 3. Psychiatric disorder. 4. Hypertension. 5. Coronary artery disease - history of. 6. Gastrointestinal and deep vein thrombosis prophylaxis. Plan: Agree with current management ID note reviewed Discharge: pending to placement, as the primary facility is affected with Flue Break-out Subjective ROS Limited/Unobtainable: Yes Constitutional: Reports: no symptoms - grossly demented. at base line Allergies: Coded Allergies: No Known Allergies (Unverified , 10/29/16) Objective Last 24 Hour Vital Signs Date Time Temp Pulse Resp B/P Pulse Ox O2 Delivery O2 Flow Rate FiO2 11/02/16 11:28 97.6 62 20 146/68 96 Room Air 11/02/16 07:45 97.6 61 20 129/67 96 Room Air 11/02/16 04:00 98.0 73 17 145/89 98 Room Air 11/02/16 00:00 98.0 70 16 143/92 100 11/01/16 20:02 98.4 68 17 140/98 100 Room Air 11/01/16 16:00 97.0 68 20 128/51 93 Room Air Intake and Output 11/01/16 11/02/16 19:00 07:00 Intake Total 540 ml 100 ml Output Total 200 ml 275 ml Balance 340 ml -175 ml Intake Oral 540 ml 100 ml Output Urine Total 200 ml 275 ml Laboratory Tests 11/02/16 09:30: White Blood Count 8.3, Red Blood Count 4.25L, Hemoglobin 12.9L, Hematocrit 38.9L , Mean Corpuscular Volume 92, Mean Corpuscular Hemoglobin 30.4, Mean Corpuscular Hemoglobin Concent 33.3, Red Cell Distribution Width 11.8, Platelet Count 225, Mean Platelet Volume 6.2L, Neutrophils (%) (Auto) 63.1, Lymphocytes ( %) (Auto) 20.5, Monocytes (%) (Auto) 10.0, Eosinophils (%) (Auto) 5.5H, Basophils (%) (Auto) 0.9, Sodium Level 142, Potassium Level 4.1, Chloride Level 103, Carbon Dioxide Level 28, Anion Gap 11, Blood Urea Nitrogen 17, Creatinine 0.8, Estimat Glomerular Filtration Rate , Glucose Level 90, Calcium Level 8.7, Total Bilirubin 0.7, Aspartate Amino Transf (AST/SGOT) 14, Alanine Aminotransferase (ALT/SGPT) 10, Alkaline Phosphatase 59, Total Protein 6.8, Albumin 3.5, Globulin 3.3, Albumin/Globulin Ratio 1.0 Height (Feet): 6 Height (Inches): 1.00 Weight (Pounds): 180 General Appearance: no apparent distress EENT: PERRL/EOMI Neck: supple Cardiovascular: normal rate Respiratory/Chest: lungs clear Abdomen: soft Extremities: non-tender Neurologic: disoriented - at base line Daisy Bronson MD Nov 02, 2016 13:54
--- NOTE | 2016-11-02 14:47 | Infectious Diseases Prog Note ---
Assessment/Plan Assessment/Plan ASSESSMENT: 75 y/o male with: // S.simulans urinary colonization - UA benign, asymptomatic // Negative influenza // Afebrile without leukocytosis Generalized weakness h/o CAD - trop(-) x1 Schizo NKDA Full Code PLAN: - ok to DC off of ABX from ID standpoint ( 10/31 UCHE pacheco# 3 ) - f/u final cultures - monitor CBC, temperatures - monitor BMP Subjective Allergies: Coded Allergies: No Known Allergies (Unverified , 10/29/16) Subjective remains afebrile. comfortable DC planning ongoing Objective Vital Signs Last 24 Hour Vital Signs Date Time Temp Pulse Resp B/P Pulse Ox O2 Delivery O2 Flow Rate FiO2 11/02/16 11:28 97.6 62 20 146/68 96 Room Air 11/02/16 07:45 97.6 61 20 129/67 96 Room Air 11/02/16 04:00 98.0 73 17 145/89 98 Room Air 11/02/16 00:00 98.0 70 16 143/92 100 11/01/16 20:02 98.4 68 17 140/98 100 Room Air 11/01/16 16:00 97.0 68 20 128/51 93 Room Air Height (Feet): 6 Height (Inches): 1.00 Weight (Pounds): 180 General Appearance: no acute distress Respiratory/Chest: no respiratory distress Cardiovascular: normal rate, regular rhythm Abdomen: normal bowel sounds, soft, non tender, non distended Laboratory Tests Test 11/02/16 09:30 White Blood Count 8.3 K/UL (4.8-10.8) Red Blood Count 4.25 M/UL (4.70-6.10) L Hemoglobin 12.9 G/DL (14.2-18.0) L Hematocrit 38.9 % (42.0-52.0) L Mean Corpuscular Volume 92 FL (80-99) Mean Corpuscular Hemoglobin 30.4 PG (27.0-31.0) Mean Corpuscular Hemoglobin Concent 33.3 G/DL (32.0-36.0) Red Cell Distribution Width 11.8 % (11.6-14.8) Platelet Count 225 K/UL (150-450) Mean Platelet Volume 6.2 FL (6.5-10.1) L Neutrophils (%) (Auto) 63.1 % (45.0-75.0) Lymphocytes (%) (Auto) 20.5 % (20.0-45.0) Monocytes (%) (Auto) 10.0 % (1.0-10.0) Eosinophils (%) (Auto) 5.5 % (0.0-3.0) H Basophils (%) (Auto) 0.9 % (0.0-2.0) Sodium Level 142 mEQ/L (135-145) Potassium Level 4.1 mEQ/L (3.4-4.9) Chloride Level 103 mEQ/L (98-107) Carbon Dioxide Level 28 mEQ/L (20-30) Anion Gap 11 (5-15) Blood Urea Nitrogen 17 mg/dL (7-23) Creatinine 0.8 mg/dL (0.7-1.2) Estimat Glomerular Filtration Rate mL/min (>60) Glucose Level 90 mg/dL (74-106) Calcium Level 8.7 mg/dL (8.6-10.2) Total Bilirubin 0.7 mg/dL (0.0-1.2) Aspartate Amino Transf (AST/SGOT) 14 U/L (5-40) Alanine Aminotransferase (ALT/SGPT) 10 U/L (3-41) Alkaline Phosphatase 59 U/L (40-129) Total Protein 6.8 g/dL (6.6-8.7) Albumin 3.5 g/dL (3.5-5.2) Globulin 3.3 g/dL Albumin/Globulin Ratio 1.0 (1.0-2.7) Current Medications Medications (Trade) Dose Ordered Sig/Laura Route PRN Reason Start Time Stop Time Status Last Admin Dose Admin Acetaminophen (Tylenol) 650 mg Q4H PRN ORAL Mild Pain/Temp > 100.5 10/30/16 05:45 11/29/16 05:44 Al Hydroxide/Mg Hydroxide (Mylanta II) 30 ml Q4H PRN ORAL Abdominal cramps 10/30/16 05:45 11/29/16 05:44 Aspirin (Ecotrin) 81 mg DAILY ORAL 10/30/16 09:00 11/29/16 08:59 11/02/16 08:36 Atorvastatin Calcium (Lipitor) 10 mg BEDTIME ORAL 10/30/16 21:00 11/29/16 20:59 10/31/16 21:22 Docusate Sodium (Colace) 100 mg TWICE A DAY ORAL 10/30/16 09:00 11/29/16 08:59 11/02/16 08:36 Heparin Sodium (Porcine) (Heparin 5000 units/ml) 5,000 units EVERY 12 HOURS SUBQ 10/30/16 09:00 11/29/16 08:59 Lorazepam (Ativan) 1 mg Q6H PRN ORAL For Anxiety 10/30/16 05:45 11/06/16 05:44 Losartan Potassium (Cozaar) 25 mg BEDTIME ORAL 10/30/16 21:00 11/29/16 20:59 Magnesium Hydroxide (Mom) 30 ml BEDTIME ORAL 10/30/16 21:00 11/29/16 20:59 10/31/16 21:21 Memantine (Namenda) 5 mg TWICE A DAY ORAL 10/30/16 09:00 11/29/16 08:59 11/02/16 08:35 Multivitamins Therapeutic (Therapeutic Multivitamin) 1 ea DAILY ORAL 10/30/16 09:00 11/29/16 08:59 11/02/16 08:35 Pantoprazole (Protonix) 40 mg DAILY IVP 10/30/16 09:00 11/29/16 08:59 11/02/16 08:36 Quetiapine Fumarate (SEROquel) 50 mg Q12HR ORAL 10/30/16 09:00 11/29/16 08:59 11/02/16 08:36 Temazepam (Restoril) 15 mg BEDTIME PRN ORAL Insomnia 10/30/16 05:45 11/06/16 05:44 DRU GODINEZ Nov 02, 2016 14:47
[2016-11-02 15:29] VITALS: BP 128/80
[2016-11-02] MEDS ORDERED: PROTONIX40 MG ORAL (16:48)
[2016-11-02] MEDS ORDERED: DOCUSATE SODIU100 MG ORAL (16:48)
[2016-11-02] MEDS ORDERED: HEPARIN SO5000 UNIT2 SUBQ (16:48)
--- NOTE | 2016-11-04 06:02 | Discharge Summary ---
Discharge Summary Hospital Course Date of Admission Oct 29, 2016 at 21:15 Date of Discharge Nov 02, 2016 at 18:32 Admitting Diagnosis sepsis HPI Benigno Campbell is a 75 year old male who was admitted on Oct 29, 2016 at 21:15 for Sepsis Hospital Course [id number] Discharge Discharge Disposition Patient was discharged to SNF/Subacute Facility(03) Discharge Diagnoses: Evie Main NP Nov 04, 2016 06:02
--- NOTE | 2016-11-04 07:18 | Discharge Summary 2 SIG ---
DATE OF ADMISSION: 10/29/2016 DATE OF DISCHARGE: 11/02/2016 CONSULTANTS: Yared Jurado M.D. BRIEF HOSPITAL COURSE: The patient is a 75-year-old, demented patient, who is a resident of senior living facility and has been reported to suffer from general weakness as there was reported spread of flu virus in the facility. He was referred for additional evaluation. At the time of initial evaluation showed hypothermia with abnormal urinalysis. Infectious Disease specialist was consulted. The patient was negative for influenza A and B screen. Tamiflu was discontinued and was given empiric treatment with IV Rocephin. Chest x-ray showed no acute disease. Urine culture showed growth of Staphylococcus simulans. He was given antibiotic treatment and at the time of discharge, was taken off antibiotics and was discharged to [facility]. FINAL DIAGNOSES: 1. Generalized weakness. 2. Healthcare associated urinary tract infection. 3. Psychiatric disorder. 4. Hypertension. 5. Coronary artery disease. Daisy Bronson M.D. I have been assigned to dictate discharge summary on this account and I was not involved in the patient's management. Evie Main N.P. DR: Alyssia JOB#: [id number] CC: [place]
== END 2016-11-02 18:32 | DRG 690 ==
LOC: ENRESERVTM → ENRESERVDT → EDBD 20:30 → EMR 20:40 → 4E 21:15 → EDBEDREQ 22:27 → 4E 11-02 06:23
DX: N39.0 Urinary tract infection, site not specified (principal); F03.90 Unspecified dementia, unspecified severity, without behavioral disturbance, psychotic disturbance, mood disturbance, and anxiety; I10 Essential (primary) hypertension; I25.10 Atherosclerotic heart disease of native coronary artery without angina pectoris; F20.9 Schizophrenia, unspecified; K21.9 Gastro-esophageal reflux disease without esophagitis; F41.9 Anxiety disorder, unspecified
CPT/HCPCS: 36415; 71010; 80053; 80061; 81003; 82248; 82550; 82553; 82728; 83036; 83540; 83550; 83605; 84443; 84484; 85025; 86710; 87040; 87081; 87086; 87181; 93005

== ENCOUNTER 2017-08-20 16:36 | Inpatient (IN) | payer MEDICARE, MEDICAID ==
[~2017-08-20] VITALS: Ht 175.3 cm; Wt 72.6 kg
[~2017-08-20 16:36] MED LIST: ALUM-MAG HYDRO360 ML PO; ASPIRIN-LOW81 MG ORAL; ATIVAN1 MG ORAL; ATORVASTATIN CA20 MG ORAL; COLACE100 MG/10 ORAL; CRANBERRY450 M3 PO; DOCUSATE SODIU100 MG ORAL; HEPARIN SO5000 UNIT2 SUBQ; LOSARTAN POTASS25 M1 PO; MOM30 ML ORAL; MULTIVITAMINS1 EAC8 ORAL; NAMENDA5 MG ORAL; PROTONIX40 MG ORAL; SEROQUEL50 MG ORAL; TEMAZEPAM15 MG ORAL; TYLENOL325 MG ORAL
[2017-08-20] MEDS ORDERED: Sodium Chloride 500ML 500 ML IV ONE (16:38)
[2017-08-20] MEDS ORDERED: COZAAR25 MG ORAL (17:03)
[2017-08-20] MEDS ORDERED: FERROUS SULFAT325 MG ORAL (17:05)
[2017-08-20] MEDS ORDERED: LIPITOR20 MG ORAL (17:05)
[2017-08-20] MEDS ORDERED: DULCOLAX10 MG RC (17:05)
[2017-08-20] MEDS ORDERED: MOM30 ML ORAL (17:05)
[2017-08-20 17:08] VITALS: BP 148/78
[2017-08-20] MEDS ORDERED: MULTIVITAMINS1 EAC2 ORAL (17:14)
[2017-08-20] MEDS ORDERED: VITAMIN C500 M1 ORAL (17:16)
[2017-08-20] MEDS ORDERED: SEROQUEL25 MG ORAL (17:16)
--- NOTE | 2017-08-20 17:22 | Emergency Room Report ---
History of Present Illness General Chief Complaint: Head Injury Source: EMS Present Illness HPI Patient just by paramedics from a facility with reports of fall versus syncope patient was essentially found on the ground Patient has baseline underlying dementia and cannot provide any history He does have evidence of obvious hematoma to the left orbital region No reports of any vomiting at the scene History of present illness is significantly limited Patient has decreased GCS at baseline And prison reported that the patient was at baseline mentation Unknown regarding chest pain Allergies: Coded Allergies: No Known Allergies (Unverified , 10/29/16) Patient History Limited by: medical condition Past Medical History: see triage record Pertinent Family History: unable to obtain Reviewed Nursing Documentation: PMH: Agreed, PSxH: Agreed Nursing Documentation-PMH Past Medical History: No History, Except For Hx Cardiac Problems: Yes Hx Hypertension: Yes Hx Gastrointestinal Problems: Yes - GERD Hx Neurological Problems: Yes - OTHER LACK OF COORDINATION Hx Weakness: Yes Hx Fatigue: Yes Review of Systems All Other Systems: limited - Other than the ones mentioned in the history of present illness all others are reviewed however they do stay limited due to the patient's mental status Physical Exam Vital Signs Date Time Temp Pulse Resp B/P (MAP) Pulse Ox O2 Delivery O2 Flow Rate FiO2 08/20/17 16:29 98.1 58 16 138/93 98 Room Air Sp02 EP Interpretation: reviewed, normal General Appearance: no apparent distress Head: other - 2 x 2 centimeter hematoma left superior orbital region Eyes: bilateral eye PERRL, bilateral eye EOMI ENT: normal pharynx, no angioedema Neck: supple, thyroid normal Respiratory: lungs clear, normal breath sounds Cardiovascular #1: regular rate, rhythm, no edema Gastrointestinal: non tender, soft Genitourinary: no CVA tenderness Musculoskeletal: other - Patient does not follow commands however moving both upper extremities towards stimuli, Neurologic: other - Patient is awake, tracks well with his eyes however not verbal and unable to provide adequate history Skin: other - Hematoma as noted above Lymphatic: no adenopathy Medical Decision Making Diagnostic Impression: Primary Impression: Syncope Additional Impressions: Head injury Symptomatic bradycardia ER Course Patient is a fairly complex patient with multiple differential to consideration including but not limited to cardiac cardiopulmonary and vascular emergencies Given the size and location of the hematoma patient did have CAT scan obtained Also the history was limited as the patient is unable to provide appropriate input It was for these reasons that CAT scan was obtained Show soft tissue swelling no obvious hemorrhage patient's blood work is at baseline level patient was found to be bradycardic initially here And will also have further cardiac monitoring and inpatient care Labs Test 08/20/17 16:55 White Blood Count 8.4 K/UL (4.8-10.8) Red Blood Count 4.09 M/UL (4.70-6.10) Hemoglobin 12.3 G/DL (14.2-18.0) Hematocrit 38.2 % (42.0-52.0) Mean Corpuscular Volume 93 FL (80-99) Mean Corpuscular Hemoglobin 30.1 PG (27.0-31.0) Mean Corpuscular Hemoglobin Concent 32.2 G/DL (32.0-36.0) Red Cell Distribution Width 11.7 % (11.6-14.8) Platelet Count 210 K/UL (150-450) Mean Platelet Volume 5.3 FL (6.5-10.1) Neutrophils (%) (Auto) 70.2 % (45.0-75.0) Lymphocytes (%) (Auto) 16.8 % (20.0-45.0) Monocytes (%) (Auto) 10.0 % (1.0-10.0) Eosinophils (%) (Auto) 1.9 % (0.0-3.0) Basophils (%) (Auto) 1.1 % (0.0-2.0) Urine Color Yellow Urine Appearance Clear Urine pH 5 (4.5-8.0) Urine Specific [place] 1.025 (1.005-1.035) Urine Protein 1+ (NEGATIVE) Urine Glucose (UA) Negative (NEGATIVE) Urine Ketones Negative (NEGATIVE) Urine Occult Blood 1+ (NEGATIVE) Urine Nitrite Negative (NEGATIVE) Urine Bilirubin Negative (NEGATIVE) Urine Urobilinogen 1 MG/DL (0.0-1.0) Urine Leukocyte Esterase Negative (NEGATIVE) Urine RBC 0-2 /HPF (0 - 0) Urine WBC 0-2 /HPF (0 - 0) Urine Squamous Epithelial Cells Few /LPF (NONE/OCC) Urine Bacteria Few /HPF (NONE) Urine Mucus Few /LPF (NONE/OCC) Sodium Level 144 MMOL/L (136-145) Potassium Level 4.4 MMOL/L (3.5-5.1) Chloride Level 108 MMOL/L (98-107) Carbon Dioxide Level 30 MMOL/L (21-32) Anion Gap 6 mmol/L (5-15) Blood Urea Nitrogen 27 mg/dL (7-18) Creatinine 1.0 MG/DL (0.55-1.30) Estimat Glomerular Filtration Rate mL/min (>60) Glucose Level 84 MG/DL (74-106) Calcium Level 8.9 MG/DL (8.5-10.1) Total Bilirubin 0.6 MG/DL (0.2-1.0) Aspartate Amino Transf (AST/SGOT) 19 U/L (15-37) Alanine Aminotransferase (ALT/SGPT) 22 U/L (12-78) Alkaline Phosphatase 63 U/L (46-116) Total Creatine Kinase 112 U/L (26-308) Creatine Kinase MB 1.9 NG/ML (0.0-3.6) Creatine Kinase MB Relative Index 1.6 Troponin I 0.000 ng/mL (0.000-0.056) Total Protein 7.4 G/DL (6.4-8.2) Albumin 3.6 G/DL (3.4-5.0) Globulin 3.8 g/dL Albumin/Globulin Ratio 0.9 (1.0-2.7) EKG Diagnostic Results Rate: bradycardiac Rhythm: other ST Segments: other - Nonspecific ST, T wave changes Rhythm Strip Diag. Results EP Interpretation: yes Rate: 60 Rhythm: NSR, no PVC's, no ectopy Chest X-Ray Diagnostic Results Chest X-Ray Diagnostic Results : Chest X-Ray Ordered: Yes # of Views/Limited/Complete: 1 View Indication: Chest Pain EP Interpretation: Yes Interpretation: no consolidation, no effusion, no pneumothorax, no acute cardiopulmonary disease Impression: No acute disease Electronically Signed by: Keena Jacobo, CT/MRI/US Diagnostic Results CT/MRI/US Diagnostic Results : Impression CT head: soft tissue changes no obvious hemorrhage Last Vital Signs Date Time Temp Pulse Resp B/P (MAP) Pulse Ox O2 Delivery O2 Flow Rate FiO2 08/20/17 17:08 98.1 59 16 148/78 98 Room Air Status: improved Disposition: ADMITTED INPATIENT Condition: Serious Referrals: Daisy Bronson MD (PCP) KEENA JACOBO D.O. Aug 20, 2017 17:22
[2017-08-20 17:27] LABS: APPEARANCE,URINE CLEAR; BASOPHILS % (AUTO) 1.1 % (0.0-2.0); EOSINOPHILS % (AUTO) 1.9 % (0.0-3.0); KETONES,URINE NEGATIVE (NEGATIVE); LEUKOCYTE ESTERASE ,URINE NEGATIVE (NEGATIVE); LYMPHOCYTES % (AUTO) 16.8 % (20.0-45.0); MEAN CORPUSCULAR HEMOGLOBIN 30.1 PG (27.0-31.0); MEAN CORPUSCULAR HGB CONC 32.2 G/DL (32.0-36.0); MEAN CORPUSCULAR VOLUME 93 FL (80-99); MEAN PLATELET VOLUME 5.3 FL (6.5-10.1); NEUTROPHILS % (AUTO) 70.2 % (45.0-75.0); NITRITE,URINE NEGATIVE (NEGATIVE); PH,URINE 5 (4.5-8.0); PLATELET COUNT 210 K/UL (150-450); PROTEIN,URINE 1+ (NEGATIVE); RED BLOOD COUNT 4.09 M/UL (4.70-6.10); RED CELL DISTRIBUTION WIDTH 11.7 % (11.6-14.8); UROBILINOGEN,URINE 1 MG/DL (0.0-1.0); WHITE BLOOD COUNT 8.4 K/UL (4.8-10.8)
--- NOTE | 2017-08-20 17:27 | Cardiology Progress Note ---
Assessment/Plan Assessment/Plan The patient is seen and examined, full consult note will be dictated shortly. Objective Last 24 Hour Vital Signs Date Time Temp Pulse Resp B/P (MAP) Pulse Ox O2 Delivery O2 Flow Rate FiO2 08/20/17 17:08 98.1 59 16 148/78 98 Room Air 08/20/17 16:29 98.1 58 16 138/93 98 Room Air Laboratory Tests Test 08/20/17 16:55 White Blood Count Pending Red Blood Count Pending Hemoglobin Pending Hematocrit Pending Mean Corpuscular Volume Pending Mean Corpuscular Hemoglobin Pending Mean Corpuscular Hemoglobin Concent Pending Red Cell Distribution Width Pending Platelet Count Pending Mean Platelet Volume Pending Neutrophils (%) (Auto) Pending Lymphocytes (%) (Auto) Pending Monocytes (%) (Auto) Pending Eosinophils (%) (Auto) Pending Basophils (%) (Auto) Pending Urine Color Pending Urine Appearance Pending Urine pH Pending Urine Specific [place] Pending Urine Protein Pending Urine Glucose (UA) Pending Urine Ketones Pending Urine Occult Blood Pending Urine Nitrite Pending Urine Bilirubin Pending Urine Urobilinogen Pending Urine Leukocyte Esterase Pending Sodium Level Pending Potassium Level Pending Chloride Level Pending Carbon Dioxide Level Pending Blood Urea Nitrogen Pending Creatinine Pending Estimat Glomerular Filtration Rate Pending Glucose Level Pending Calcium Level Pending Total Bilirubin Pending Aspartate Amino Transf (AST/SGOT) Pending Alanine Aminotransferase (ALT/SGPT) Pending Alkaline Phosphatase Pending Total Creatine Kinase Pending Creatine Kinase MB Pending Troponin I Pending Total Protein Pending Albumin Pending Globulin Pending ABI MUKHERJEE Aug 20, 2017 17:26
[2017-08-20 17:31] LABS: BACTERIA,URINE FEW /HPF; MUCUS,URINE FEW /LPF (NONE/OCC); RBC,URINE 0-2 /HPF (0 - 0); SQUAMOUS EPITHELIAL CELL,UR FEW /LPF (NONE/OCC); WBC,URINE 0-2 /HPF (0 - 0)
[2017-08-20 17:52] LABS: ANION GAP 6 mmol/L (5-15); CALCIUM 8.9 MG/DL (8.5-10.1); CARBON DIOXIDE 30 MMOL/L (21-32); CHLORIDE 108 MMOL/L (98-107); POTASSIUM 4.4 MMOL/L (3.5-5.1); SODIUM 144 MMOL/L (136-145)
[2017-08-20 18:05] LABS: ALANINE AMINOTRANSFERASE 22 U/L (12-78); ALBUMIN/GLOBULIN RATIO 0.9 (1.0-2.7); ASPARTATE AMINO TRANSFERASE 19 U/L (15-37); CKMB 1.9 NG/ML (0.0-3.6); TOTAL PROTEIN 7.4 G/DL (6.4-8.2)
[2017-08-20 19:23] VITALS: BP 135/88
[2017-08-20 20:00] VITALS: BP 144/53
[2017-08-20] MEDS ORDERED: CRANBERRY450 M4 PO (21:20)
[2017-08-21] VITALS: BP 131/86
[2017-08-21 04:00] VITALS: BP 134/100
[2017-08-21 05:05] LABS: BASOPHILS % (AUTO) 1.1 % (0.0-2.0); EOSINOPHILS % (AUTO) 2.9 % (0.0-3.0); LYMPHOCYTES % (AUTO) 27.3 % (20.0-45.0); MEAN CORPUSCULAR HEMOGLOBIN 31.3 PG (27.0-31.0); MEAN CORPUSCULAR HGB CONC 33.3 G/DL (32.0-36.0); MEAN CORPUSCULAR VOLUME 94 FL (80-99); MONOCYTES % (AUTO) 10.5 % (1.0-10.0); NEUTROPHILS % (AUTO) 58.3 % (45.0-75.0); PLATELET COUNT 209 K/UL (150-450); RED BLOOD COUNT 3.87 M/UL (4.70-6.10); RED CELL DISTRIBUTION WIDTH 11.5 % (11.6-14.8); WHITE BLOOD COUNT 7.2 K/UL (4.8-10.8)
[2017-08-21 05:31] LABS: HEMOGLOBIN A1C 6.6 % (4.3-6.0)
[2017-08-21 05:33] LABS: ALANINE AMINOTRANSFERASE 17 U/L (12-78); ALBUMIN/GLOBULIN RATIO 0.8 (1.0-2.7); ANION GAP 5 mmol/L (5-15); ASPARTATE AMINO TRANSFERASE 18 U/L (15-37); CALCIUM 8.6 MG/DL (8.5-10.1); CARBON DIOXIDE 28 MMOL/L (21-32); CHLORIDE 110 MMOL/L (98-107); CHOLESTEROL 158 MG/DL (< 200); CHOLESTEROL/HDL RATIO 2.2 (3.3-4.4); CREATININE 0.8 MG/DL (0.55-1.30); POTASSIUM 4.1 MMOL/L (3.5-5.1); SODIUM 143 MMOL/L (136-145); TOTAL PROTEIN 6.8 G/DL (6.4-8.2)
[2017-08-21] MEDS: Docusate 100mg cap ORAL SCH ×2 (08:11→17:22)
[2017-08-21] MEDS: Memantine 10mg tab ORAL SCH ×2 (08:11→17:22)
[2017-08-21] MEDS: Ascorbic Acid 500mg tab ORAL SCH (08:19)
[2017-08-21] MEDS: Enoxaparin 40mg Inj SUBQ SCH (08:23)
--- NOTE | 2017-08-21 08:57 | Diagnostic Imaging Report ---
Indication: Head trauma Technique: Continuous helical CT scanning of the head was performed without intravenous contrast material. Axial and coronal 5 mm sections were generated. Dose: Total Dose Length Product - DLP [address] Dose Index - CTDIvol(s) 70.38 mGy. Automated exposure control was utilized for dose reduction. Comparison: None Findings: There is prominence of cortical sulci and the ventricular system. There is periventricular low density. There is no shift of midline structures. No abnormal extra-axial fluid collections are noted. There is no evidence of intracerebral bleeding. No other abnormal high or low density areas are noted within the brain. Soft tissue swelling is noted over the left orbit with high density consistent with a hematoma. There is also vascular calcification. Impression: Left periorbital hematoma. Atrophy. Chronic small vessel white matter ischemic change. Atherosclerotic change. The above report is concordant with preliminary reading by [employer] with minor difference. The CT scanner at [facility] is accredited by the [employer] and the scans are performed using protocols designed to limit radiation exposure to as low as reasonably achievable to attain images of sufficient resolution adequate for diagnostic evaluation.
--- NOTE | 2017-08-21 08:59 | History & Physical ---
History and Physical History & Physicial seen and examined. Dict. completed Daisy Bronson MD Aug 21, 2017 08:58
--- NOTE | 2017-08-21 09:01 | General Progress Note ---
Assessment/Plan Status: stable Assessment/Plan 1- Acute Encephalopathy 2- Lt PeriOrbital Edema 3- Fall 4- Deconditioning 5- HLP Plan: Cardiology, neuro and psych are consulted and notified Subjective ROS Limited/Unobtainable: Yes Allergies: Coded Allergies: No Known Allergies (Unverified , 10/29/16) Objective Last 24 Hour Vital Signs Date Time Temp Pulse Resp B/P (MAP) Pulse Ox O2 Delivery O2 Flow Rate FiO2 08/21/17 04:00 48 08/21/17 04:00 97.2 69 18 134/100 88 Room Air 08/21/17 01:00 48 08/21/17 00:00 96.8 50 20 131/86 91 Room Air 08/20/17 20:00 97.4 72 16 135/88 99 Room Air 08/20/17 20:00 97.0 81 18 144/53 99 Room Air 08/20/17 19:23 97.4 72 16 135/88 99 Room Air 08/20/17 17:08 98.1 59 16 148/78 98 Room Air 08/20/17 16:29 98.1 58 16 138/93 98 Room Air Laboratory Tests 08/20/17 16:55: White Blood Count 8.4, Red Blood Count 4.09L, Hemoglobin 12.3L, Hematocrit 38.2L , Mean Corpuscular Volume 93, Mean Corpuscular Hemoglobin 30.1, Mean Corpuscular Hemoglobin Concent 32.2, Red Cell Distribution Width 11.7, Platelet Count 210, Mean Platelet Volume 5.3L, Neutrophils (%) (Auto) 70.2, Lymphocytes ( %) (Auto) 16.8L, Monocytes (%) (Auto) 10.0, Eosinophils (%) (Auto) 1.9, Basophils (%) (Auto) 1.1, Urine Color Yellow, Urine Appearance Clear, Urine pH 5 , Urine Specific Welda 1.025, Urine Protein 1+H, Urine Glucose (UA) Negative, Urine Ketones Negative, Urine Occult Blood 1+H, Urine Nitrite Negative, Urine Bilirubin Negative, Urine Urobilinogen 1H, Urine Leukocyte Esterase Negative, Urine RBC 0-2H, Urine WBC 0-2, Urine Squamous Epithelial Cells Few, Urine Bacteria Few, Urine Mucus FewH, Sodium Level 144, Potassium Level 4.4, Chloride Level 108H, Carbon Dioxide Level 30, Anion Gap 6, Blood Urea Nitrogen 27H, Creatinine 1.0, Estimat Glomerular Filtration Rate , Glucose Level 84, Calcium Level 8.9, Total Bilirubin 0.6, Aspartate Amino Transf (AST/SGOT) 19, Alanine Aminotransferase (ALT/SGPT) 22, Alkaline Phosphatase 63, Total Creatine Kinase 112, Creatine Kinase MB 1.9, Creatine Kinase MB Relative Index 1.6, Troponin I 0.000, Total Protein 7.4, Albumin 3.6, Globulin 3.8, Albumin/Globulin Ratio 0.9L 08/21/17 04:30: White Blood Count 7.2, Red Blood Count 3.87L, Hemoglobin 12.1L, Hematocrit 36.3L , Mean Corpuscular Volume 94, Mean Corpuscular Hemoglobin 31.3H, Mean Corpuscular Hemoglobin Concent 33.3, Red Cell Distribution Width 11.5L, Platelet Count 209, Mean Platelet Volume 6.0L, Neutrophils (%) (Auto) 58.3, Lymphocytes (%) (Auto) 27.3, Monocytes (%) (Auto) 10.5H, Eosinophils (%) (Auto) 2.9, Basophils (%) (Auto) 1.1, Sodium Level 143, Potassium Level 4.1, Chloride Level 110H, Carbon Dioxide Level 28, Anion Gap 5, Blood Urea Nitrogen 23H, Creatinine 0.8, Estimat Glomerular Filtration Rate , Glucose Level 97, Calcium Level 8.6, Total Bilirubin 0.7, Aspartate Amino Transf (AST/SGOT) 18, Alanine Aminotransferase (ALT/SGPT) 17, Alkaline Phosphatase 57, Troponin I < 0.017, Total Protein 6.8, Albumin 3.1L, Globulin 3.7, Albumin/Globulin Ratio 0.8L, Hemoglobin A1c 6.6H, Pro-B-Type Natriuretic Peptide 128H, Triglycerides Level 33 , Cholesterol Level 158, LDL Cholesterol 82, HDL Cholesterol 72H, Cholesterol/ HDL Ratio 2.2L Height (Feet): 5 Height (Inches): 9.00 Weight (Pounds): 160 EENT: other - Lt allison-Orbial Edema and echymosis Neck: supple Cardiovascular: tachycardia Respiratory/Chest: lungs clear Abdomen: soft Extremities: non-tender, other - limited exam Neurologic: disoriented, other - Demented Daisy Bronson MD Aug 21, 2017 09:01
--- NOTE | 2017-08-21 10:05 | Diagnostic Imaging Report ---
Indication: Chest Technique: XRAY CHEST 1 V Comparison:10/29/2016 Findings: The heart is normal in size. Aorta is elongated and calcified. There is a rounded nodular density over the right lung base. The remainder the lungs are clear. No pleural fluid. Impression: Rounded nodular density over the right lung base. This may represent a nipple shadow. A pulmonary nodule is not excluded. Repeat chest with nipple markers suggested. Atherosclerotic change. Dr. Temple in the emergency room was notified of these findings 08/21/2017 at 10 AM.
[2017-08-21 12:00] VITALS: BP 103/73
[2017-08-21 16:00] VITALS: BP 134/98
--- NOTE | 2017-08-21 19:31 | History and Physical Report ---
DATE OF ADMISSION: 08/20/2017 SOURCE OF INFORMATION: The patient and EMR. HISTORY OF PRESENT ILLNESS: The patient is a 76-year-old male. The patient was found on the floor with the swelling on the left side of the orbit. The patient was transferred for further evaluation. At the time of evaluation, the patient is not verbally communicative, limited source of information. REVIEW OF SYSTEMS: Limited as above. PAST MEDICAL HISTORY: GERD, coronary artery disease, hypertension, lack of coordination, ataxia, general fatigue, and weakness. PAST SURGICAL HISTORY: Unobtainable. ALLERGIES: NKDA. MEDICATIONS: Current hospital medications including, but not limited to atorvastatin, losartan, and Namenda. FAMILY HISTORY: Reviewed and noncontributory. SOCIAL HISTORY: The patient is currently resident of the long-term facility. Limited source of information. PHYSICAL EXAMINATION: VITAL SIGNS: Blood pressure 140/80, temperature 98.2, pulse rate 50 to 60, and respiratory rate 18-20. HEAD AND NECK: Positive for the left-sided periorbital edema and swelling. NEUROLOGIC: The patient is awake, alert, and oriented x1. The patient is noncommunicative verbally and grossly demented - at baseline. MUSCULOSKELETAL: No gross focal motor deficit. PSYCHIATRIC: Mood and affect are flat. ABDOMEN: Soft. No organomegaly. IMAGING: Imaging is still pending. LABORATORY DATA: Dated 08/20/2017 showed WBC 8.4, hemoglobin 12.3, and platelets of 210. Sodium 144, potassium 4.4, BUN 27, and creatinine 1. Urinalysis unremarkable. ASSESSMENT AND PLAN: 1. Acute encephalopathy. 2. Head trauma, status post fall. 3. Sinus bradycardia. 4. Hyperlipidemia. 5. Psychiatric disorder. 6. Dementia. 7. Gastrointestinal and deep vein thrombosis prophylaxis. PLAN OF CARE: Psychiatric Dr. Booker, Neurology Dr. Moore, Cardiology Dr. Marquis have already been consulted. Daisy Bronson M.D. DR: VALERIA JOB#: [id number] CC:
[2017-08-21 20:00] VITALS: BP 130/68
[2017-08-21] MEDS: Losartan 25mg tab ORAL SCH (21:55)
[2017-08-21] MEDS: Milk of Magnesia 30ml Ud ORAL SCH (21:56)
[2017-08-22] VITALS: BP 129/80
[2017-08-22 04:00] VITALS: BP 135/72
[2017-08-22 08:00] VITALS: BP 126/70
[2017-08-22] MEDS: Ascorbic Acid 500mg tab ORAL SCH (08:50)
[2017-08-22] MEDS: Docusate 100mg cap ORAL SCH ×2 (08:51→18:15)
[2017-08-22] MEDS: Memantine 10mg tab ORAL SCH ×2 (08:51→18:15)
[2017-08-22] MEDS: Enoxaparin 40mg Inj SUBQ SCH (08:52)
--- NOTE | 2017-08-22 10:47 | General Progress Note ---
Assessment/Plan Status: stable Assessment/Plan 1. Acute encephalopathy. 2. Head trauma, status post fall. 3. Sinus bradycardia. 4. Hyperlipidemia. 5. Psychiatric disorder. 6. Dementia. 7. Gastrointestinal and deep vein thrombosis prophylaxis. Plan: Cardiology, neuro Notes are reviewed Subjective ROS Limited/Unobtainable: Yes Constitutional: Reports: no symptoms HEENT: Reports: no symptoms Allergies: Coded Allergies: No Known Allergies (Unverified , 10/29/16) Objective Last 24 Hour Vital Signs Date Time Temp Pulse Resp B/P (MAP) Pulse Ox O2 Delivery O2 Flow Rate FiO2 08/22/17 08:00 97.8 69 19 126/70 98 08/22/17 04:00 48 08/22/17 04:00 97.5 54 18 135/72 96 Room Air 08/22/17 00:00 97.2 93 20 129/80 98 Room Air 08/22/17 00:00 51 08/21/17 21:55 130/68 08/21/17 20:00 97.7 44 21 130/68 100 Room Air 08/21/17 20:00 43 08/21/17 16:00 93 Room Air 08/21/17 16:00 97.7 60 19 134/98 93 08/21/17 16:00 45 08/21/17 12:00 98.1 74 19 103/73 93 08/21/17 12:00 56 08/21/17 12:00 93 Room Air Laboratory Tests 08/21/17 15:00: Troponin I 0.000 08/21/17 22:00: Troponin I 0.000 Height (Feet): 5 Height (Inches): 9.00 Weight (Pounds): 160 General Appearance: no apparent distress EENT: PERRL/EOMI Neck: supple Cardiovascular: normal rate Respiratory/Chest: lungs clear Abdomen: soft Genitourinary/Rectal: other Extremities: other - atrophied musculature Neurologic: disoriented, other - demented Daisy Bronson MD Aug 22, 2017 10:47
[2017-08-22 12:00] VITALS: BP 134/99
[2017-08-22 16:00] VITALS: BP 135/71
--- NOTE | 2017-08-22 18:58 | Cardiology Report ---
APPROVED REPORT EXAM: Two-dimensional and M-mode echocardiogram with Doppler and color Doppler. INDICATION Syncope M-Mode DIMENSIONS IVSd1.5 (0.7-1.1cm)Left Atrium (MM)5.0 (1.6-4.0cm) LVDd4.1 (3.5-5.6cm)Aortic Root4.1 (2.0-3.7cm) PWd0.8 (0.7-1.1cm)Aortic Cusp Exc.1.7 (1.5-2.0cm) LVDs2.7 (2.5-4.0cm) PWs1.8 cm Other Information Technically limited study due to patient resistance. Normal left ventricular chamber size, systolic function and wall motion to extent visualized. Left ventricular ejection fraction estimated to be 60-65%. Study quality precludes accurate assessment of regional wall motion. Mild left ventricular hypertrophy. No evidence of pericardial effusion. All other cardiac chamber sizes are within normal limits. Focal aortic valve sclerosis with adequate cusp excursion. Thickened mitral valve leaflets with normal excursion. Mitral annulus and aortic root calcification. Pulmonic valve not well visualized. Normal tricuspid valve structure. IVC measured at 2.1 cm with slight physiologic collapse. A color flow and spectral Doppler study was performed and revealed: Trace to mild aortic insufficiency. Trace mitral regurgitation. Mitral diastolic velocities suggest reduced left ventricular relaxation c/w mild LV diastolic dysfunction (Grade I ). Trace tricuspid regurgitation. Tricuspid systolic velocities suggests peak right ventricular systolic pressure of 13 mmHg No pulmonic regurgitation present.
[2017-08-22 20:00] VITALS: BP 164/93
[2017-08-22] MEDS: Milk of Magnesia 30ml Ud ORAL SCH (21:21)
[2017-08-22] MEDS: Losartan 25mg tab ORAL SCH (21:25)
[2017-08-23] VITALS: BP_SYST 139; BP_SYST 155; BP_DIAS 67; BP_DIAS 85
[2017-08-23 04:00] VITALS: BP 143/84
[2017-08-23 08:00] VITALS: BP 137/90
[2017-08-23] MEDS: Docusate 100mg cap ORAL SCH (09:52)
[2017-08-23] MEDS: Memantine 10mg tab ORAL SCH (09:52)
[2017-08-23] MEDS: Ascorbic Acid 500mg tab ORAL SCH (09:53)
[2017-08-23] MEDS: Enoxaparin 40mg Inj SUBQ SCH (09:55)
[2017-08-23 12:00] VITALS: BP 141/50
--- NOTE | 2017-08-25 10:34 | Discharge Summary ---
Discharge Summary Hospital Course Date of Admission Aug 20, 2017 at 17:16 Date of Discharge Aug 23, 2017 at 13:55 Admitting Diagnosis syncope HPI Benigno Campbell is a 76 year old male who was admitted on Aug 20, 2017 at 17:16 for Syncope Hospital Course [id number] Discharge Discharge Disposition Patient was discharged to SNF/Subacute Facility(03) Discharge Diagnoses: Evie Main NP Aug 25, 2017 10:34
--- NOTE | 2017-08-25 11:03 | Cardiology Report ---
APPROVED REPORT EKG Measurement Heart [id number] Sinus bradycardia Left axis deviation Right bundle branch block Septal infarct, age undetermined Abnormal ECG
--- NOTE | 2017-08-26 | Discharge Summary 2 SIG ---
DATE OF ADMISSION: 08/20/2017 DATE OF DISCHARGE: 08/23/2017 HAND GRINDER: Justice Marquis M.D. BRIEF HOSPITAL COURSE: The patient is a 76-year-old male, who was found on the floor with swelling on the left side of the orbit. The patient has some baseline underlying dementia and unable to provide history. There was no vomiting at the scene and HPI was significantly limited. The patient is a resident of [facility] and was transferred to [facility] for further evaluation. He had a CAT scan of the head that showed left periorbital hematoma with chronic small vessel white matter ischemic changes and atherosclerotic change with atrophy. He was initially found to be bradycardic. EKG showed bradycardia with nonspecific ST and T-wave changes. Chest x-ray showed no acute disease. He was admitted to telemetry for acute encephalopathy and head trauma status post fall. He was placed on environmental monitoring specialist. An echocardiogram done showed ejection fraction of 60% to 65% with normal ventricular size, function, and wall motion. Troponins were negative. He was given physical therapy. Mental status improved. He was eventually discharged back to SNF. FINAL DIAGNOSES: 1. Acute encephalopathy. 2. Head trauma status post fall. 3. Sinus bradycardia. 4. Hyperlipidemia. 5. Psychiatric disorder. 6. Dementia. DISCHARGE DISPOSITION: The patient was discharged to [facility]. Daisy Bronson M.D. I have been assigned to dictate discharge summary on this account and I was not involved in the patient's management. Evie Main N.P. DR: BOUBACAR JOB#: [id number] CC: [place]
== END 2017-08-23 13:55 | DRG 124 ==
LOC: EDBD 16:36 → EMR 17:03 → 2E 17:16 → EDBEDREQ 18:37 → 2E 19:27
DX: S00.12XA Contusion of left eyelid and periocular area, initial encounter (principal); G93.40 Encephalopathy, unspecified; F03.90 Unspecified dementia, unspecified severity, without behavioral disturbance, psychotic disturbance, mood disturbance, and anxiety; R00.1 Bradycardia, unspecified; W19.XXXA Unspecified fall, initial encounter; Y92.129 Unspecified place in nursing home as the place of occurrence of the external cause; E78.5 Hyperlipidemia, unspecified; K21.9 Gastro-esophageal reflux disease without esophagitis; I25.10 Atherosclerotic heart disease of native coronary artery without angina pectoris; I10 Essential (primary) hypertension; F99 Mental disorder, not otherwise specified
CPT/HCPCS: 36415; 70450; 71010; 80053; 80061; 81003; 82550; 82553; 83036; 83880; 84484; 85025; 87081; 93005; 93306; 96372; 96374; 99284

== ENCOUNTER 2018-02-21 12:56 | Emergency (ER) | payer MEDICARE, MEDICAID ==
[~2018-02-21] VITALS: Ht 172.7 cm; Wt 65.8 kg
[~2018-02-21 12:56] MED LIST changes: +COZAAR25 MG ORAL; +CRANBERRY450 M4 PO; +DULCOLAX10 MG RC; +FERROUS SULFAT325 MG ORAL; +LIPITOR20 MG ORAL; +MULTIVITAMINS1 EAC2 ORAL; +SEROQUEL25 MG ORAL; +VITAMIN C500 M1 ORAL
[2018-02-21 13:13] VITALS: BP 99/68
[2018-02-21] MEDS ORDERED: Norco 5mg/325mg tab ORAL ONE (13:15)
--- NOTE | 2018-02-21 13:30 | Emergency Room Report ---
History of Present Illness General Chief Complaint: Upper Extremity Injury Source: Medical Record, EMS Present Illness HPI 77-year-old male brought in by EMS for suspected fall yesterday on left arm. Per EMS report from [facility], they were unable to do the x-rays for some reason. Patient not providing any history of present illness, has history of dementia penitentiary paperwork is illegible Allergies: Coded Allergies: No Known Allergies (Unverified , 10/29/16) Patient History Limited by: age, other - dementia Past Medical History: old chart reviewed, unable to obtain Past Surgical History: unable to obtain Pertinent Family History: unable to obtain Social History: Denies: smoking, alcohol use, drug use Immunizations: UTD Reviewed Nursing Documentation: PMH: Agreed; PSxH: Agreed Nursing Documentation-PMH Hx Cardiac Problems: Yes Hx Hypertension: Yes Hx Asthma: Yes Hx COPD: Yes Hx Cancer: No Hx Gastrointestinal Problems: Yes - GERD Hx Neurological Problems: Yes - OTHER LACK OF COORDINATION Hx Weakness: Yes Hx Fatigue: Yes Review of Systems All Other Systems: limited - dementia Physical Exam Vital Signs Date Time Temp Pulse Resp B/P (MAP) Pulse Ox O2 Delivery O2 Flow Rate FiO2 02/21/18 12:52 69 18 99/68 97 Room Air 02/21/18 13:13 98.0 98.0 Sp02 EP Interpretation: reviewed, normal General Appearance: normal inspection, well appearing, no apparent distress, alert, GCS 15, non-toxic Head: normocephalic, atraumatic Eyes: bilateral eye PERRL, bilateral eye EOMI ENT: normal ENT inspection, hearing grossly normal, normal pharynx, no angioedema, normal voice, TMs + canals normal, uvula midline, moist mucus membranes Neck: normal inspection, full range of motion, supple, thyroid normal, no meningismus, no bony tend Respiratory: normal inspection, lungs clear, normal breath sounds, no rhonchi, no respiratory distress, no retraction, no accessory muscle use, no wheezing, speaking full sentences Cardiovascular #1: regular rate, rhythm, no edema, no JVD, normal capillary refill Gastrointestinal: normal inspection, normal bowel sounds, non tender, soft, no mass, no peritonitis, non-distended, no guarding, no hernia, no pulsatile mass Genitourinary: no CVA tenderness Musculoskeletal: normal inspection, back normal, normal range of motion, no calf tenderness, pelvis stable, Juvencio's Sign negative, other - left arm: No obvious trauma or deformity. Normal contour of left shoulder. Difficult to tell of there is focal ttp to left forearm/elbow as patient winces with minor palpation but then with distraction, he has no focal ttp Neurologic: normal inspection, alert, responsive, general medical practitioner III-XII nml as tested, motor strength/tone normal, cerebellar normal, normal gait, speech normal Psychiatric: normal inspection, judgement/insight normal, mood/affect normal, no suicidal/homicidal ideation, no delusions Skin: normal inspection, normal color, no rash Lymphatic: normal inspection, no adenopathy Medical Decision Making Diagnostic Impression: Primary Impression: Left arm pain ER Course VSS, afebrile No obvious deformity Will do xrays of left arm/wrist/forearm Signed out to Dr Obrien to followup xrays Last Vital Signs Date Time Temp Pulse Resp B/P (MAP) Pulse Ox O2 Delivery O2 Flow Rate FiO2 02/21/18 13:13 98.0 72 18 99/68 97 Room Air 98.0 Status: improved MOSES BOWERS M.D. Feb 21, 2018 13:30
[2018-02-21 15:18] VITALS: BP 108/74
--- NOTE | 2018-02-21 15:52 | Emergency Room Report ---
History of Present Illness General Chief Complaint: Upper Extremity Injury Source: Medical Record, EMS Present Illness Allergies: Coded Allergies: No Known Allergies (Unverified , 10/29/16) Nursing Documentation-PMH Hx Cardiac Problems: Yes Hx Hypertension: Yes Hx Asthma: Yes Hx COPD: Yes Hx Cancer: No Hx Gastrointestinal Problems: Yes - GERD Hx Neurological Problems: Yes - OTHER LACK OF COORDINATION Hx Weakness: Yes Hx Fatigue: Yes Physical Exam Vital Signs Date Time Temp Pulse Resp B/P (MAP) Pulse Ox O2 Delivery O2 Flow Rate FiO2 02/21/18 12:52 69 18 99/68 97 Room Air 02/21/18 13:13 98.0 98.0 Medical Decision Making Diagnostic Impression: Primary Impression: Left arm pain Additional Impression: Contusion ER Course Please refer to the previous note for the history exam and presentation At this time pending imaging of the patient's left arm patient is fairly noncompliant Also looking at the medical records patient appears to have refused multiple blood draws at the nursing facility at this time after multiple attempts We were able to calm the patient to have imaging of the left wrist/forearm elbow area These x-rays were not optimal however we were able to obtain some imaging Review of the imaging that is obtained does not reveal any obvious acute fracture Patient does have small hematoma and swelling to the distal wrist on the radial aspect no obvious fractures are evident Patient stable for close outpatient follow-up and repeat imaging as needed/ Other X-Ray Diagnostic Results Other X-Ray Diagnostic Results : X-Ray ordered: Left forearm # of Views/Limited Vs Complete: 2 View Indication: Pain EP Interpretation: Yes Interpretation: no dislocation, no soft tissue swelling, no fractures, other - Limited exam Impression: No acute disease - On this limited exam Electronically Signed by: Keena Obrien DO Last Vital Signs Date Time Temp Pulse Resp B/P (MAP) Pulse Ox O2 Delivery O2 Flow Rate FiO2 02/21/18 15:18 97.6 86 18 108/74 97 Room Air 97.6 Status: improved Disposition: XFER SNF Condition: Stable Additional Instructions: Patient will require follow-up with primary doctor in the next 2-3 days otherwise return to the er with any worsening symptoms. Please note that this report is being documented using DRAGON technology. This can lead to erroneous entry secondary to incorrect interpretation by the dictating instrument. Keena Obrien DO Feb 21, 2018 15:52
[2018-02-21 16:19] VITALS: BP 108/74
--- NOTE | 2018-02-21 16:39 | Diagnostic Imaging Report ---
Indications: Pain in mid forearm Technique: Two views of the left forearm Comparison: None Findings: Exam is limited due to limited ability the patient cooperate. The proximal ulna is cut off of the lateral view. No definite acute fractures. No dislocations. Patient's watch is in place, could obscure pathology. Bones are somewhat demineralized. No definite radiopaque foreign body Impression: Limited exam. No definite acute abnormality
== END 2018-02-21 16:19 ==
LOC: EDBD 12:56 → EMR 13:32
DX: S60.212A Contusion of left wrist, initial encounter (principal); W19.XXXA Unspecified fall, initial encounter; Y92.129 Unspecified place in nursing home as the place of occurrence of the external cause; I10 Essential (primary) hypertension; J44.9 Chronic obstructive pulmonary disease, unspecified; K21.9 Gastro-esophageal reflux disease without esophagitis; R27.9 Unspecified lack of coordination
CPT/HCPCS: 99283

== ENCOUNTER 2018-04-28 16:40 | Inpatient (IN) | payer MEDICARE, MEDICAID ==
[~2018-04-28] VITALS: Ht 198.1 cm; Wt 56.7 kg
[2018-04-28] MEDS ORDERED: BACLOFEN10 MG ORAL (16:45)
[2018-04-28] MEDS ORDERED: Sodium Chloride 500ML 500 ML IV ONE (16:49)
[2018-04-28] MEDS ORDERED: VITAMIN B-1000.4 MG PO (16:52)
[2018-04-28] MEDS ORDERED: MELATONIN 3 MG1 EAC1 PO (16:52)
[2018-04-28 17:05] LABS: BASOPHILS % (AUTO) 1.1 % (0.0-2.0); EOSINOPHILS % (AUTO) 1.2 % (0.0-3.0); HEMOGLOBIN 12.5 G/DL (14.2-18.0); LYMPHOCYTES % (AUTO) 20.1 % (20.0-45.0); MEAN CORPUSCULAR VOLUME 89 FL (80-99); MONOCYTES % (AUTO) 10.1 % (1.0-10.0); NEUTROPHILS % (AUTO) 67.5 % (45.0-75.0); PLATELET COUNT 272 K/UL (150-450); RED BLOOD COUNT 3.92 M/UL (4.70-6.10); WHITE BLOOD COUNT 10.6 K/UL (4.8-10.8)
[2018-04-28 17:06] VITALS: BP 110/76
--- NOTE | 2018-04-28 17:12 | Emergency Room Report ---
History of Present Illness General Chief Complaint: Gastrointestinal Illness Source: Medical Record Present Illness HPI 77-year-old male presents ED for evaluation. Patient comes from [facility] facility. Per nursing staff patient has becoming increasingly weak with poor appetite with difficulty eating and swallowing over the last several days. Patient has dementia and is at baseline. Patient unable to provide any additional history at this time. No signs of distress upon arrival. No other aggravating relieving factors. No other associated symptoms Allergies: Coded Allergies: No Known Allergies (Unverified , 10/29/16) Patient History Past Medical History: HTN, asthma, COPD, GERD, dementia, other - encephalopathy Past Surgical History: none Pertinent Family History: none Social History: Denies: smoking, alcohol use, drug use Immunizations: UTD Reviewed Nursing Documentation: PMH: Agreed; PSxH: Agreed Nursing Documentation-PMH Past Medical History: No History, Except For Hx Cardiac Problems: Yes - Hyperlipidemia Hx Hypertension: Yes Hx Asthma: Yes Hx COPD: Yes Hx Cancer: No Hx Gastrointestinal Problems: Yes - GERD Hx Neurological Problems: Yes - Encephalopathy, Dementia Hx Weakness: Yes Hx Fatigue: Yes Review of Systems All Other Systems: limited Physical Exam Vital Signs Date Time Temp Pulse Resp B/P (MAP) Pulse Ox O2 Delivery O2 Flow Rate FiO2 04/28/18 16:40 97.0 76 14 110/76 95 Room Air 97.0 Sp02 EP Interpretation: reviewed, normal General Appearance: no apparent distress, GCS 15, non-toxic, cachetic, other - nonverbal Head: normocephalic Eyes: bilateral eye normal inspection, bilateral eye PERRL ENT: hearing grossly normal, normal pharynx, no angioedema, normal voice Neck: full range of motion, supple/symm/no masses Respiratory: chest non-tender, lungs clear, normal breath sounds, speaking full sentences Cardiovascular #1: regular rate, rhythm, no edema Gastrointestinal: normal bowel sounds, non tender, soft, non-distended, no guarding, no rebound Rectal: deferred Genitourinary: no CVA tenderness Musculoskeletal: normal inspection Neurologic: other - dementia, nonverbal Psychiatric: other - nonverbal Skin: normal inspection Lymphatic: normal inspection Medical Decision Making Diagnostic Impression: Primary Impression: Dehydration Additional Impressions: Failure to thrive Qualified Codes: R62.7 - Adult failure to thrive Constipation Qualified Codes: K59.00 - Constipation, unspecified Dysphagia Qualified Codes: R13.10 - Dysphagia, unspecified ER Course Hospital Course 77-year-old male presents to ED with difficulty eating, weight loss Differential diagnoses include: Pneumonia, UTI, sepsis, dehydration, OK/ unstable angina, failure to thrive Clinical course Patient placed on stretcher. On manager monitoring. After initial history and physical, I ordered labs, IV fluids, EKG, chest x-ray Labs - no leukocytosis, hb/hct stable, BUN elevated EKG - NSR, no acute ischemic changes interpreted by me CXR - questional free air under diaphragm, lungs clear KUB shows no evidence of free air but significant fecal impaction CT abdomen shows fecal impaction, no signs of obstruction or free air, questional left adrenal mass IVFs continued. patient likely will require G-tube placement Case discussed with Dr Bronson and they agreed to admit patient to their service for further care and support I feel this is a highly complex case requiring extensive working including EKG/ Rhythm strip, Xray/CT/US, Blood/urine lab work, repeat exams while in ED, and administration of strong opiates/narcotics for pain control, admission to hospital or close patient follow up. Diagnosis - failure to thrive, constipation, dysphagia, dehydration Patient admitted to floor in serious condition Labs Test 04/28/18 16:57 04/28/18 17:29 White Blood Count 10.6 K/UL (4.8-10.8) Red Blood Count 3.92 M/UL (4.70-6.10) Hemoglobin 12.5 G/DL (14.2-18.0) Hematocrit 35.0 % (42.0-52.0) Mean Corpuscular Volume 89 FL (80-99) Mean Corpuscular Hemoglobin 31.9 PG (27.0-31.0) Mean Corpuscular Hemoglobin Concent 35.7 G/DL (32.0-36.0) Red Cell Distribution Width 11.0 % (11.6-14.8) Platelet Count 272 K/UL (150-450) Mean Platelet Volume 5.0 FL (6.5-10.1) Neutrophils (%) (Auto) 67.5 % (45.0-75.0) Lymphocytes (%) (Auto) 20.1 % (20.0-45.0) Monocytes (%) (Auto) 10.1 % (1.0-10.0) Eosinophils (%) (Auto) 1.2 % (0.0-3.0) Basophils (%) (Auto) 1.1 % (0.0-2.0) Prothrombin Time 11.4 SEC (9.30-11.50) Prothromb Time International Ratio 1.1 (0.9-1.1) Activated Partial Thromboplast Time 27 SEC (23-33) Sodium Level 140 MMOL/L (136-145) Potassium Level 4.4 MMOL/L (3.5-5.1) Chloride Level 106 MMOL/L (98-107) Carbon Dioxide Level 25 MMOL/L (21-32) Anion Gap 9 mmol/L (5-15) Blood Urea Nitrogen 24 mg/dL (7-18) Creatinine 0.9 MG/DL (0.55-1.30) Estimat Glomerular Filtration Rate mL/min (>60) Glucose Level 100 MG/DL (74-106) Calcium Level 8.6 MG/DL (8.5-10.1) Total Bilirubin 0.7 MG/DL (0.2-1.0) Aspartate Amino Transf (AST/SGOT) 28 U/L (15-37) Alanine Aminotransferase (ALT/SGPT) 39 U/L (12-78) Alkaline Phosphatase 45 U/L (46-116) Total Protein 7.1 G/DL (6.4-8.2) Albumin 2.9 G/DL (3.4-5.0) Globulin 4.2 g/dL Albumin/Globulin Ratio 0.7 (1.0-2.7) Lipase 120 U/L (73-393) Urine Color [place] Urine Appearance Slightly cloudy Urine pH 6 (4.5-8.0) Urine Specific [place] 1.020 (1.005-1.035) Urine Protein 1+ (NEGATIVE) Urine Glucose (UA) Negative (NEGATIVE) Urine Ketones Negative (NEGATIVE) Urine Occult Blood 3+ (NEGATIVE) Urine Nitrite Negative (NEGATIVE) Urine Bilirubin Negative (NEGATIVE) Urine Ictotest Negative (NEGATIVE) Urine Urobilinogen 4 MG/DL (0.0-1.0) Urine Leukocyte Esterase 1+ (NEGATIVE) Urine RBC 20-30 /HPF (0 - 0) Urine WBC 2-4 /HPF (0 - 0) Urine Squamous Epithelial Cells Occasional /LPF Urine Bacteria Few /HPF (NONE) Urine Mucus Moderate /LPF (NONE/OCC) EKG Diagnostic Results Rate: normal Rhythm: NSR ST Segments: no acute changes ASA given to the pt in ED: No Rhythm Strip Diag. Results EP Interpretation: yes Rhythm: NSR, no PVC's, no ectopy Chest X-Ray Diagnostic Results Chest X-Ray Diagnostic Results : Chest X-Ray Ordered: Yes # of Views/Limited/Complete: 1 View Indication: Other - weakness EP Interpretation: Yes Interpretation: no consolidation, no effusion, no pneumothorax, no acute cardiopulmonary disease, other - ? free air under diaphragm Impression: Other - ? free air under diaphragm Electronically Signed by: Electronically signed by Dashawn James MD Other X-Ray Diagnostic Results Other X-Ray Diagnostic Results : X-Ray ordered: KUB # of Views/Limited Vs Complete: 1 View Indication: Pain EP Interpretation: Yes Interpretation: nonspecific bowel gas, no sbo, other - no free air, fecal impaction Impression: Other - constipatino Electronically Signed by: Electronically signed by Dashawn James MD CT/MRI/US Diagnostic Results CT/MRI/US Diagnostic Results : Imaging Test Ordered: CT A/P Impression fecal impaction. no signs of obstruction. ? Left adrenal mass Last Vital Signs Date Time Temp Pulse Resp B/P (MAP) Pulse Ox O2 Delivery O2 Flow Rate FiO2 04/28/18 16:40 97.0 76 14 110/76 95 Room Air 97.0 Status: improved Disposition: ADMITTED INPATIENT Condition: Serious Dashawn James MD Apr 28, 2018 17:12
[2018-04-28 17:16] LABS: INR 1.1 (0.9-1.1)
[2018-04-28 17:18] LABS: ANION GAP 9 mmol/L (5-15); BLOOD UREA NITROGEN 24 mg/dL (7-18); CALCIUM 8.6 MG/DL (8.5-10.1); CARBON DIOXIDE 25 MMOL/L (21-32); CHLORIDE 106 MMOL/L (98-107); CREATININE 0.9 MG/DL (0.55-1.30); POTASSIUM 4.4 MMOL/L (3.5-5.1); SODIUM 140 MMOL/L (136-145)
[2018-04-28 17:24] LABS: ALANINE AMINOTRANSFERASE 39 U/L (12-78); ALBUMIN 2.9 G/DL (3.4-5.0); ALBUMIN/GLOBULIN RATIO 0.7 (1.0-2.7); ALKALINE PHOSPHATASE 45 U/L (46-116); ASPARTATE AMINO TRANSFERASE 28 U/L (15-37); BILIRUBIN,TOTAL 0.7 MG/DL (0.2-1.0)
[2018-04-28 17:48] LABS: APPEARANCE,URINE SLIGHTLY CLOUDY; BILIRUBIN, URINE NEGATIVE (NEGATIVE); COLOR,URINE AMBER; GLUCOSE, URINE (UA) NEGATIVE (NEGATIVE); KETONES,URINE NEGATIVE (NEGATIVE); LEUKOCYTE ESTERASE ,URINE 1+ (NEGATIVE); NITRITE,URINE NEGATIVE (NEGATIVE); PH,URINE 6 (4.5-8.0); PROTEIN,URINE 1+ (NEGATIVE); UROBILINOGEN,URINE 4 MG/DL (0.0-1.0)
[2018-04-28] MEDS ORDERED: MELATONIN3 MG ORAL (17:58)
[2018-04-28] MEDS ORDERED: DOCUSATE SODIU100 MG ORAL (18:00)
[2018-04-28] MEDS ORDERED: Isovue-300 100ml vial INJ PRN (18:00)
[2018-04-28] MEDS ORDERED: NAMENDA5 MG ORAL (18:01)
[2018-04-28] MEDS ORDERED: LACTULOSE20 GM/301 ORAL (18:02)
[2018-04-28] MEDS ORDERED: MEGESTROL400 MG/11 PO (18:06)
--- NOTE | 2018-04-28 18:13 | Diagnostic Imaging Report ---
EXAM: XR Chest, 1 View CLINICAL HISTORY: PREOP TECHNIQUE: Frontal view of the chest. COMPARISON: 08/20/17. FINDINGS: There is trace gas below the right hemidiaphragm. Question whether operation is for treatment of a known bowel perforation. Calcified aortic knob. No vascular congestion or parenchymal consolidation. IMPRESSION: Pneumoperitoneum. Question whether this preop clearance is for abdominal surgery.
--- NOTE | 2018-04-28 18:40 | Diagnostic Imaging Report ---
EXAM: XR Abdomen, 2 Views CLINICAL HISTORY: ABD PAIN TECHNIQUE: Frontal view of the abdomen/pelvis with upright view of the abdomen. COMPARISON: No relevant prior studies available. FINDINGS: Fecal retention. The pneumoperitoneum questioned on the chest radiograph is not as well-seen on these abdominal films. It could have been artifactual. CT abdomen and pelvis is upcoming.
--- NOTE | 2018-04-28 19:22 | Diagnostic Imaging Report ---
EXAM: CT Abdomen and Pelvis With Intravenous Contrast CLINICAL HISTORY: ABD DIST TECHNIQUE: Axial computed tomography images of the abdomen and pelvis with intravenous contrast. CTDI is 10.21 mGy and DLP is 548 mGy-cm One or more of the following dose reduction techniques were used: automated exposure control, adjustment of the mA and/or kV according to patient size, use of iterative reconstruction technique. COMPARISON: Radiographs of same date FINDINGS: Distal esophageal wall thickening could reflect esophagitis. There is no free air. The questioned pneumoperitoneum identified on chest radiograph was due to artifact from bowel interposition anterior to the liver. There is colonic fecal retention suggesting constipation. Unremarkable appendix. Upper pole right renal cyst. No hydronephrosis. Cholelithiasis. No biliary ductal dilation. Left lobe hepatic hypodensities, which are too small to characterize. 2.7 cm left adrenal mass arising from the lateral limb. This is nonspecific. Based on density. Correlate for history of malignancy. Mild body wall edema/anasarca. No acute fracture. IMPRESSION: Fecal retention suggesting constipation. The free air questioned on radiographs was artifactual due to bowel interposition anterior to the liver. Distal esophageal wall thickening could reflect esophagitis. Cholelithiasis. 2.7 cm left adrenal mass. Correlate for history of malignancy.
[2018-04-28 20:00] VITALS: BP 99/66
[2018-04-28 20:05] VITALS: BP 103/82
[2018-04-28] MEDS: Losartan 25mg tab ORAL SCH (22:30)
--- NOTE | 2018-04-28 22:44 | Infectious Diseases Prog Note ---
Assessment/Plan Problems: (1) Thrush, oral Assessment & Plan: suspect ck related , with possible ck esophagitis , will screen him for HIV , recommend EGD to rule out ck esophagitis or organic reason for his dysphagia . will start him on oral nystatin (2) Failure to thrive Assessment & Plan: suspect poor oral intake , will send HIV and HCV, HBV screening , and TSH , recommend dietitian consult . may need tube feeding (3) Dysphagia Assessment & Plan: with esophagitis, may need EGD ck esophagitis or tumor . may need tube feeding due to poor oral intake Subjective Allergies: Coded Allergies: No Known Allergies (Unverified , 10/29/16) Objective Vital Signs Last 24 Hour Vital Signs Date Time Temp Pulse Resp B/P (MAP) Pulse Ox O2 Delivery O2 Flow Rate FiO2 04/28/18 22:26 Room Air 04/28/18 20:25 97.2 73 14 103/82 95 Room Air 97.2 04/28/18 20:05 97.2 73 14 103/82 95 Room Air 97.2 04/28/18 17:06 97.0 14 110/76 95 Room Air 97.0 04/28/18 16:40 97.0 76 14 110/76 95 Room Air 97.0 Height (Feet): 6 Height (Inches): 0.00 Weight (Pounds): 160 Laboratory Tests Test 04/28/18 16:57 04/28/18 17:29 White Blood Count 10.6 K/UL (4.8-10.8) Red Blood Count 3.92 M/UL (4.70-6.10) L Hemoglobin 12.5 G/DL (14.2-18.0) L Hematocrit 35.0 % (42.0-52.0) L Mean Corpuscular Volume 89 FL (80-99) Mean Corpuscular Hemoglobin 31.9 PG (27.0-31.0) H Mean Corpuscular Hemoglobin Concent 35.7 G/DL (32.0-36.0) Red Cell Distribution Width 11.0 % (11.6-14.8) L Platelet Count 272 K/UL (150-450) Mean Platelet Volume 5.0 FL (6.5-10.1) L Neutrophils (%) (Auto) 67.5 % (45.0-75.0) Lymphocytes (%) (Auto) 20.1 % (20.0-45.0) Monocytes (%) (Auto) 10.1 % (1.0-10.0) H Eosinophils (%) (Auto) 1.2 % (0.0-3.0) Basophils (%) (Auto) 1.1 % (0.0-2.0) Prothrombin Time 11.4 SEC (9.30-11.50) Prothromb Time International Ratio 1.1 (0.9-1.1) Activated Partial Thromboplast Time 27 SEC (23-33) Sodium Level 140 MMOL/L (136-145) Potassium Level 4.4 MMOL/L (3.5-5.1) Chloride Level 106 MMOL/L (98-107) Carbon Dioxide Level 25 MMOL/L (21-32) Anion Gap 9 mmol/L (5-15) Blood Urea Nitrogen 24 mg/dL (7-18) H Creatinine 0.9 MG/DL (0.55-1.30) Estimat Glomerular Filtration Rate mL/min (>60) Glucose Level 100 MG/DL (74-106) Calcium Level 8.6 MG/DL (8.5-10.1) Total Bilirubin 0.7 MG/DL (0.2-1.0) Aspartate Amino Transf (AST/SGOT) 28 U/L (15-37) Alanine Aminotransferase (ALT/SGPT) 39 U/L (12-78) Alkaline Phosphatase 45 U/L (46-116) L Total Protein 7.1 G/DL (6.4-8.2) Albumin 2.9 G/DL (3.4-5.0) L Globulin 4.2 g/dL Albumin/Globulin Ratio 0.7 (1.0-2.7) L Lipase 120 U/L (73-393) Urine Color [place] Urine Appearance Slightly cloudy Urine pH 6 (4.5-8.0) Urine Specific [place] 1.020 (1.005-1.035) Urine Protein 1+ (NEGATIVE) H Urine Glucose (UA) Negative (NEGATIVE) Urine Ketones Negative (NEGATIVE) Urine Occult Blood 3+ (NEGATIVE) H Urine Nitrite Negative (NEGATIVE) Urine Bilirubin Negative (NEGATIVE) Urine Ictotest Negative (NEGATIVE) Urine Urobilinogen 4 MG/DL (0.0-1.0) H Urine Leukocyte Esterase 1+ (NEGATIVE) H Urine RBC 20-30 /HPF (0 - 0) H Urine WBC 2-4 /HPF (0 - 0) Urine Squamous Epithelial Cells Occasional /LPF Urine Bacteria Few /HPF (NONE) Urine Mucus Moderate /LPF (NONE/OCC) H Current Medications Medications (Trade) Dose Ordered Sig/Laura Route PRN Reason Start Time Stop Time Status Last Admin Dose Admin Acetaminophen (Tylenol) 650 mg Q4HR PRN ORAL Mild Pain/Temp > 100.5 04/28/18 21:45 05/28/18 21:44 Ascorbic Acid (Vitamin C) 500 mg DAILY ORAL 04/29/18 09:00 05/29/18 08:59 Atorvastatin Calcium (Lipitor) 20 mg BEDTIME ORAL 04/28/18 22:15 05/28/18 22:14 Baclofen (Lioresal) 10 mg BID ORAL 04/29/18 09:00 05/29/18 08:59 Dextrose/Sodium Chloride 1,000 ml @ 80 mls/hr [id number] IV 04/28/18 23:00 05/28/18 22:59 Docusate Sodium (Colace) 50 mg TWICE A DAY ORAL 04/29/18 09:00 05/29/18 08:59 UNV Ferrous Sulfate (Feosol) 325 mg DAILY ORAL 04/29/18 09:00 05/29/18 08:59 Heparin Sodium (Porcine) (Heparin 5000 units/ml) 5,000 units EVERY 12 HOURS SUBQ 04/28/18 22:10 05/28/18 22:09 Iopamidol (Isovue-300 100ml) 100 ml NOW PRN INJ Radiology Procedure 04/28/18 18:00 Lactulose (Cephulac) 30 gm TID ORAL 04/29/18 09:00 05/29/18 08:59 Losartan Potassium (Cozaar) 25 mg BEDTIME ORAL 04/28/18 22:30 05/28/18 22:29 Memantine (Namenda) 5 mg TWICE A DAY ORAL 04/29/18 09:00 05/29/18 08:59 Carlos Bonilla M.D. Apr 28, 2018 22:44
[2018-04-28] MEDS: D5NS 1,000 ML IV SCH (23:13)
[2018-04-28] MEDS: Heparin 5000 units/ml inj SUBQ SCH (23:15)
[2018-04-29] VITALS: BP 139/79
[2018-04-29 04:00] VITALS: BP 127/93
[2018-04-29 05:18] LABS: BASOPHILS % (AUTO) 0.8 % (0.0-2.0); EOSINOPHILS % (AUTO) 0.7 % (0.0-3.0); HEMATOCRIT 34.9 % (42.0-52.0); HEMOGLOBIN 11.8 G/DL (14.2-18.0); LYMPHOCYTES % (AUTO) 19.4 % (20.0-45.0); MEAN CORPUSCULAR VOLUME 90 FL (80-99); MONOCYTES % (AUTO) 6.4 % (1.0-10.0); NEUTROPHILS % (AUTO) 72.7 % (45.0-75.0); PLATELET COUNT 230 K/UL (150-450); RED BLOOD COUNT 3.87 M/UL (4.70-6.10); RED CELL DISTRIBUTION WIDTH 11.1 % (11.6-14.8); WHITE BLOOD COUNT 10.7 K/UL (4.8-10.8)
[2018-04-29 05:33] LABS: ALANINE AMINOTRANSFERASE 44 U/L (12-78); ALBUMIN 3.2 G/DL (3.4-5.0); ALBUMIN/GLOBULIN RATIO 0.8 (1.0-2.7); ALKALINE PHOSPHATASE 47 U/L (46-116); ANION GAP 10 mmol/L (5-15); ASPARTATE AMINO TRANSFERASE 25 U/L (15-37); BILIRUBIN,TOTAL 0.9 MG/DL (0.2-1.0); BLOOD UREA NITROGEN 19 mg/dL (7-18); CALCIUM 9.1 MG/DL (8.5-10.1); CARBON DIOXIDE 25 MMOL/L (21-32); CHLORIDE 105 MMOL/L (98-107); CREATININE 0.9 MG/DL (0.55-1.30); POTASSIUM 3.8 MMOL/L (3.5-5.1); SODIUM 140 MMOL/L (136-145)
[2018-04-29 08:00] VITALS: BP 135/84
[2018-04-29] MEDS ORDERED: Docusate 100mg cap ORAL SCH (09:00)
[2018-04-29] MEDS ORDERED: Fleet's Mineral Oil Enema RECTAL SCH (09:00)
--- NOTE | 2018-04-29 09:15 | Consultation ---
DATE OF CONSULTATION: 04/29/2018 GASTROENTEROLOGY CONSULTATION CONSULTING PHYSICIAN: Alex Combs M.D. CHIEF COMPLAINT: Failure to thrive. HISTORY OF PRESENT ILLNESS: Most of history is per chart. This is a 77-year-old male with multiple medical problems which I will dictate in a second, who was transferred to [facility] for failure to thrive and abdominal pain. The patient had a CT of the abdomen and pelvis done in the ER, which showed evidence of constipation, gallstones, adrenal mass. PAST MEDICAL HISTORY: 1. Hypertension. 2. Acid reflux disease. 3. Gait imbalance. 4. Coronary artery disease. 5. Dementia. PAST SURGICAL HISTORY: Unknown. ALLERGIES: No known drug allergies. MEDICATIONS: Please see medication reconciliation list. SOCIAL HISTORY: Currently lives in a long-term. No recent history of tobacco, alcohol, or illicit drug abuse. FAMILY HISTORY: Noncontributory. REVIEW OF SYSTEMS: Unable to obtain. PHYSICAL EXAMINATION: VITAL SIGNS: Temperature 98.2, pulse 72, respirations 21, blood pressure is 131/84. HEENT: Normocephalic and atraumatic. Sclerae anicteric. NECK: Supple. No evidence of obvious lymphadenopathy. CARDIOVASCULAR: Regular rate and rhythm. Plus S1 and S2. LUNGS: Decreased breath sounds bilaterally based on the supine exam. ABDOMEN: Semi-hard. Bowel sounds are hypoactive. No rebound. No guarding. No peritoneal sign. EXTREMITIES: No cyanosis, no clubbing, no edema. LABORATORY DATA: White count is 10.7, hemoglobin 11.8, hematocrit 34, platelet count is 230,000. Chem-7 grossly normal. ASSESSMENT: This is a 77-year-old male with current problems of: 1. Constipation/stool impaction. 2. Failure to thrive. 3. Distal esophageal wall thickening. 4. Gallstones. 5. Anemia, normocytic. 6. Coronary artery disease. 7. Dementia. PLAN: Speech evaluation for swallow evaluation and if he passes, we will do calorie count and if the patient fails to have an adequate p.o. intake, then we will consider talking to the family or we will make the decision for him for G-tube placement. In terms of stool impaction, we are going to start him on a bowel regimen including an enema today and then Colace, MiraLAX, and lactulose and we are going to do serial abdominal exam on a daily basis. In terms of anemia most probably of chronic disease, we will start the workup. In terms of distal esophageal wall thickening, at one point, the patient will need an endoscopy. We will wait on to see if he needs a PICC. We will do this at the same time, otherwise we will do an endoscopy later. Meanwhile, we are going to put him on PPI daily. Alex Combs M.D. DR: [place] JOB#: [id number] CC:
[2018-04-29] MEDS: Ascorbic Acid 500mg tab ORAL SCH (09:48)
[2018-04-29] MEDS: Pantoprazole Inj IV SCH (09:48)
[2018-04-29] MEDS: Lactulose 20gm/30ml UDC ORAL SCH ×3 (09:48→17:42)
[2018-04-29] MEDS: Lactulose 10gm/15ml UDC ORAL SCH ×3 (09:48→17:42)
[2018-04-29] MEDS: Memantine 10mg tab ORAL SCH ×2 (09:49→17:41)
[2018-04-29] MEDS: Docusate 100mg cap ORAL SCH ×2 (09:49→17:41)
[2018-04-29] MEDS: Heparin 5000 units/ml inj SUBQ SCH ×2 (09:51→22:18)
[2018-04-29 12:00] VITALS: BP 127/91
[2018-04-29] MEDS: D5NS 1,000 ML IV SCH (13:10)
--- NOTE | 2018-04-29 13:24 | General Progress Note ---
Assessment/Plan Assessment/Plan SOURCE OF INFORMATION: The patient and EMR. HISTORY OF PRESENT ILLNESS: The patient is a 77-year-old male. The patient was found cachectic. difficulty swallowing.. The patient was transferred for further evaluation. At the time of evaluation, the patient is not verbally communicative, limited source of information. REVIEW OF SYSTEMS: Limited as above. PAST MEDICAL HISTORY: GERD, coronary artery disease, hypertension, lack of coordination, ataxia, general fatigue, and weakness. PAST SURGICAL HISTORY: Unobtainable. ALLERGIES: NKDA. MEDICATIONS: Current hospital medications including, but not limited to atorvastatin, losartan, and Namenda. FAMILY HISTORY: Reviewed and noncontributory. SOCIAL HISTORY: The patient is currently resident of the shelter facility. Limited source of information. PHYSICAL EXAMINATION: VITAL SIGNS: Blood pressure 135/80, temperature 98.2, pulse rate 50 to 60, and respiratory rate 18-20. HEAD AND NECK: Positive for the left-sided periorbital edema and swelling. NEUROLOGIC: The patient is awake, alert, and oriented x1. The patient is noncommunicative verbally and grossly demented - at baseline. MUSCULOSKELETAL: No gross focal motor deficit. PSYCHIATRIC: Mood and affect are flat. ABDOMEN: Soft. No organomegaly. IMAGING: Imaging is still pending. LABORATORY DATA: reviewed ASSESSMENT AND PLAN: 1. Acute encephalopathy. 2. Head trauma, status post fall. 3. Sinus bradycardia. 4. Hyperlipidemia. 5. Psychiatric disorder. 6. Dementia. 7. Gastrointestinal and deep vein thrombosis prophylaxis. PLAN OF CARE: Nephro, GI and Infection are consulted Speech and swallow eval Subjective Allergies: Coded Allergies: No Known Allergies (Unverified , 10/29/16) Objective Last 24 Hour Vital Signs Date Time Temp Pulse Resp B/P (MAP) Pulse Ox O2 Delivery O2 Flow Rate FiO2 04/29/18 12:00 97.7 68 19 127/91 (103) 97 97.7 04/29/18 09:00 Room Air 04/29/18 08:00 98.2 72 21 135/84 (101) 98 98.2 04/29/18 04:00 98.9 65 20 127/93 (104) 93 98.9 04/29/18 00:00 98.8 73 19 139/79 (99) 99 98.8 04/28/18 22:30 99/66 04/28/18 22:26 Room Air 04/28/18 20:25 97.2 73 14 103/82 95 Room Air 97.2 04/28/18 20:05 97.2 73 14 103/82 95 Room Air 97.2 04/28/18 20:00 98.8 72 20 99/66 (77) 95 98.8 04/28/18 17:06 97.0 14 110/76 95 Room Air 97.0 04/28/18 16:40 97.0 76 14 110/76 95 Room Air 97.0 Intake and Output 04/28/18 04/29/18 19:00 07:00 Intake Total 0 ml 560 ml Balance 0 ml 560 ml Intake Oral 0 ml IV Total 560 ml # Voids 3 Laboratory Tests 04/28/18 16:57: White Blood Count 10.6, Red Blood Count 3.92L, Hemoglobin 12.5L, Hematocrit 35.0L, Mean Corpuscular Volume 89, Mean Corpuscular Hemoglobin 31.9H, Mean Corpuscular Hemoglobin Concent 35.7, Red Cell Distribution Width 11.0L, Platelet Count 272, Mean Platelet Volume 5.0L, Neutrophils (%) (Auto) 67.5, Lymphocytes (%) (Auto) 20.1, Monocytes (%) (Auto) 10.1H, Eosinophils (%) (Auto) 1.2, Basophils (%) (Auto) 1.1, Prothrombin Time 11.4, Prothromb Time International Ratio 1.1, Activated Partial Thromboplast Time 27, Sodium Level 140, Potassium Level 4.4, Chloride Level 106, Carbon Dioxide Level 25, Anion Gap 9, Blood Urea Nitrogen 24H, Creatinine 0.9, Estimat Glomerular Filtration Rate , Glucose Level 100, Calcium Level 8.6, Total Bilirubin 0.7, Aspartate Amino Transf (AST/SGOT) 28, Alanine Aminotransferase (ALT/SGPT) 39, Alkaline Phosphatase 45L, Total Protein 7.1, Albumin 2.9L, Globulin 4.2, Albumin/ Globulin Ratio 0.7L, Lipase 120 04/28/18 17:29: Urine Color [place], Urine Appearance Slightly cloudy, Urine pH 6, Urine Specific [place] 1.020, Urine Protein 1+H, Urine Glucose (UA) Negative, Urine Ketones Negative, Urine Occult Blood 3+H, Urine Nitrite Negative, Urine Bilirubin Negative, Urine Ictotest Negative, Urine Urobilinogen 4H, Urine Leukocyte Esterase 1+H, Urine RBC 20-30H, Urine WBC 2-4, Urine Squamous Epithelial Cells Occasional, Urine Bacteria Few, Urine Mucus ModerateH 04/28/18 23:29: Rapid Plasma Reagin [Pending], Hepatitis B Surface Antigen [Pending], Hepatitis C Antibody [Pending], HIV (1&2) Antibody Rapid Negative 04/29/18 04:00: White Blood Count 10.7, Red Blood Count 3.87L, Hemoglobin 11.8L, Hematocrit 34.9L, Mean Corpuscular Volume 90, Mean Corpuscular Hemoglobin 30.4, Mean Corpuscular Hemoglobin Concent 33.7, Red Cell Distribution Width 11.1L, Platelet Count 230, Mean Platelet Volume 5.0L, Neutrophils (%) (Auto) 72.7, Lymphocytes (%) (Auto) 19.4L, Monocytes (%) (Auto) 6.4, Eosinophils (%) (Auto) 0.7, Basophils (%) (Auto) 0.8, Sodium Level 140, Potassium Level 3.8, Chloride Level 105, Carbon Dioxide Level 25, Anion Gap 10, Blood Urea Nitrogen 19H, Creatinine 0.9, Estimat Glomerular Filtration Rate , Glucose Level 80, Calcium Level 9.1, Total Bilirubin 0.9, Aspartate Amino Transf (AST/SGOT) 25, Alanine Aminotransferase (ALT/SGPT) 44, Alkaline Phosphatase 47, Total Protein 7.2, Albumin 3.2L, Globulin 4.0, Albumin/Globulin Ratio 0.8L, Thyroid Stimulating Hormone (TSH) 1.447 Height (Feet): 6 Height (Inches): 0.00 Weight (Pounds): 160 Daisy Bronson MD Apr 29, 2018 13:24
[2018-04-29 16:00] VITALS: BP 136/71
[2018-04-29] MEDS: Nystatin Susp 500,000 units/5ml ORAL SCH ×2 (17:42→22:15)
--- NOTE | 2018-04-29 17:45 | Consultation ---
DATE OF CONSULTATION: 04/29/2018 INFECTIOUS DISEASE CONSULTATION CONSULTING PHYSICIAN: Carlos Bonilla M.D. REQUESTING PHYSICIAN: Daisy Bronson M.D. REASON FOR CONSULTATION: Oral thrush with dysphagia, possible Carly esophagitis, rule out HIV. HISTORY OF PRESENT ILLNESS: The patient is a 77-year-old male with past medical history of hypertension, asthma, COPD, GERD, dementia, who was sent from his correction facility for poor oral intake, difficulty eating and swallowing over the last couple of days. The patient has dementia at the bedside. No sign of recent infection, fever, chills, or upper respiratory infection. No sore throat or cough. The patient had no other associated symptom, but he has been losing weight significantly. The patient was found to have oral thrush in the emergency room. He had temperature of 97 degrees. He looked cachectic, but he was poor historian, could not provide good history. History was mainly obtained from the medical record. The patient had a CT scan of the abdomen and pelvis, which showed fecal impaction and his chest x-ray showed artifactual pneumoperitoneum. The patient was admitted to the hospital for further workup and evaluation and Infectious Disease consultation was requested for antibiotics treatment and further evaluation of his oral thrush and to rule out HIV. PAST MEDICAL HISTORY: Significant for hyperlipidemia, hypertension, asthma, COPD, GERD, encephalopathy, dementia, weakness, and fatigue. PAST SURGICAL HISTORY: Not on record. ALLERGIES: No known drug allergy. MEDICATIONS: The patient currently on MiraLAX, vitamin C, baclofen, Feosol, Namenda, Colace, Protonix, Cozaar, Lipitor, and Tylenol. FAMILY HISTORY: Unable to obtain. SOCIAL HISTORY: The patient lives at correction facility. No recent drugs, tobacco, or alcohol. REVIEW OF SYSTEMS: Unable to obtain. The patient is a poor historian and could not provide good history. PHYSICAL EXAMINATION: GENERAL: An elderly male, cachectic, lying in bed, nonverbal, not in acute distress. VITAL SIGNS: Temperature 97.2 degrees, pulse 73, respirations 14, blood pressure 103/82, and saturation 95% on room air. HEENT: Normocephalic and atraumatic. Pupils reactive to light. Moist oral mucosa with oral thrush mainly on his tongue. No ulceration. Poor dental hygiene. NECK: Supple. No lymphadenopathy. CARDIOVASCULAR: Regular rate and rhythm. No murmur. LUNGS: Clear bilaterally. No wheezing. No rhonchi. ABDOMEN: Soft, nontender, and nondistended. Normal bowel sounds. No hepatosplenomegaly or ascites. EXTREMITIES: No edema or cyanosis. LABORATORY DATA: Labs showed white count of 10.6, hemoglobin of 12.5, and platelet count of 272,000. BUN of 24 and creatinine of 0.9. AST of 28, ALT of 39, and alkaline phosphatase of 45. Urinalysis showed +1 leukocyte esterase, red blood cells 20-30, and moderate amount of mucus. IMAGING: Chest x-ray showed questionable pneumoperitoneum. Abdominal CT scan showed fecal retention suggesting constipation, free air questioned on radiograph was artifactual due to bowel interposition anterior to the liver. ASSESSMENT AND RECOMMENDATION: 1. Oral thrush, suspect Carly related with possible Carly esophagitis, which may explain his dysphagia. We will screen him for HIV. Recommend EGD to rule out Carly esophagitis or other organic reason for his dysphagia. We will start him on oral nystatin for now. 2. Failure to thrive, suspect poor oral intake. We will send HIV, hepatitis C and hepatitis B screening, and TSH. Recommend production statistical clerk consult. May need tube feeding if continues to have poor oral intake. 3. Dysphagia with esophagitis, may need EGD to rule out Carly esophagitis or tumor. The patient also may need tube feeding in the future due to poor oral intake. ID will continue to follow. Thank you for the consult. Please feel free to call with any question. Carlos Bonilla M.D. DR: YUDI JOB#: [id number] CC: [place]
[2018-04-29 20:00] VITALS: BP 122/83
[2018-04-29] MEDS: Losartan 25mg tab ORAL SCH (22:16)
[2018-04-29] MEDS: Miralax 17gm pkt ORAL SCH (22:17)
[2018-04-30] VITALS: BP 128/66
[2018-04-30] MEDS: D5NS 1,000 ML IV SCH ×2 (02:45→13:35)
[2018-04-30 04:00] VITALS: BP 115/84
[2018-04-30 07:24] LABS: BASOPHILS % (AUTO) 1.2 % (0.0-2.0); EOSINOPHILS % (AUTO) 0.4 % (0.0-3.0); HEMATOCRIT 32.2 % (42.0-52.0); HEMOGLOBIN 11.5 G/DL (14.2-18.0); LYMPHOCYTES % (AUTO) 16.7 % (20.0-45.0); MEAN CORPUSCULAR VOLUME 91 FL (80-99); MONOCYTES % (AUTO) 4.3 % (1.0-10.0); NEUTROPHILS % (AUTO) 77.3 % (45.0-75.0); PLATELET COUNT 216 K/UL (150-450); RED BLOOD COUNT 3.53 M/UL (4.70-6.10); RED CELL DISTRIBUTION WIDTH 11.3 % (11.6-14.8); WHITE BLOOD COUNT 11.9 K/UL (4.8-10.8)
--- NOTE | 2018-04-30 07:29 | General Progress Note ---
Assessment/Plan Assessment/Plan 1. Constipation/stool impaction. 2. Failure to thrive. 3. Distal esophageal wall thickening. 4. Gallstones. 5. Anemia, normocytic. 6. Coronary artery disease. 7. Dementia. repeat enema and if no BM will need manual disimpaction bowel regimen anemia work up swallow eval pending puree diet for now PEG plan if needed Subjective ROS Limited/Unobtainable: No Allergies: Coded Allergies: No Known Allergies (Unverified , 10/29/16) Objective Last 24 Hour Vital Signs Date Time Temp Pulse Resp B/P (MAP) Pulse Ox O2 Delivery O2 Flow Rate FiO2 04/30/18 04:00 99.0 67 19 115/84 (94) 99 99.0 04/30/18 00:00 97.6 63 19 128/66 (86) 99 97.6 04/29/18 22:16 122/83 04/29/18 21:00 Room Air 04/29/18 20:00 97.9 64 20 122/83 (96) 98 97.9 04/29/18 16:00 98.2 70 19 136/71 (92) 95 98.2 04/29/18 12:00 97.7 68 19 127/91 (103) 97 97.7 04/29/18 09:00 Room Air 04/29/18 08:00 98.2 72 21 135/84 (101) 98 98.2 Intake and Output 04/29/18 04/30/18 19:00 07:00 Intake Total 80 ml 880 ml Balance 80 ml 880 ml IV Total 80 ml 880 ml # Voids 5 2 # Bowel Movements 1 Laboratory Tests 04/30/18 06:35: White Blood Count [Pending], Red Blood Count [Pending], Hemoglobin [Pending], Hematocrit [Pending], Mean Corpuscular Volume [Pending], Mean Corpuscular Hemoglobin [Pending], Mean Corpuscular Hemoglobin Concent [Pending], Red Cell Distribution Width [Pending], Platelet Count [Pending], Mean Platelet Volume [ Pending], Neutrophils (%) (Auto) [Pending], Lymphocytes (%) (Auto) [Pending], Monocytes (%) (Auto) [Pending], Eosinophils (%) (Auto) [Pending], Basophils (%) (Auto) [Pending], Sodium Level [Pending], Potassium Level [Pending], Chloride Level [Pending], Carbon Dioxide Level [Pending], Blood Urea Nitrogen [Pending], Creatinine [Pending], Estimat Glomerular Filtration Rate [Pending], Glucose Level [Pending], Calcium Level [Pending], Iron Level [Pending], Unsaturated Iron Binding [Pending], Total Bilirubin [Pending], Aspartate Amino Transf (AST/ SGOT) [Pending], Alanine Aminotransferase (ALT/SGPT) [Pending], Alkaline Phosphatase [Pending], Total Protein [Pending], Albumin [Pending], Globulin [ Pending], Vitamin B12 Level [Pending], Folate [Pending] Height (Feet): 6 Height (Inches): 0.00 Weight (Pounds): 160 General Appearance: lethargic EENT: normal ENT inspection Neck: supple Cardiovascular: normal rate Respiratory/Chest: decreased breath sounds Abdomen: soft, hypoactive bowel sounds Extremities: non-tender Alex Combs MD Apr 30, 2018 07:29
[2018-04-30 07:55] LABS: ALANINE AMINOTRANSFERASE 41 U/L (12-78); ALBUMIN/GLOBULIN RATIO 0.8 (1.0-2.7); ALKALINE PHOSPHATASE 49 U/L (46-116); ANION GAP 11 mmol/L (5-15); ASPARTATE AMINO TRANSFERASE 21 U/L (15-37); BILIRUBIN,TOTAL 0.7 MG/DL (0.2-1.0); BLOOD UREA NITROGEN 13 mg/dL (7-18); CALCIUM 8.8 MG/DL (8.5-10.1); CARBON DIOXIDE 23 MMOL/L (21-32); CHLORIDE 110 MMOL/L (98-107); CREATININE 0.8 MG/DL (0.55-1.30); POTASSIUM 3.5 MMOL/L (3.5-5.1); SODIUM 144 MMOL/L (136-145)
[2018-04-30] MEDS ORDERED: Fleet's Mineral Oil Enema RECTAL SCH (08:00)
[2018-04-30 08:15] VITALS: BP 154/87
[2018-04-30 08:27] LABS: % IRON SATURATION 31 % (15-50); IRON 66 ug/dL (50-175); TOTAL IRON BINDING CAPACITY 215 ug/dL (250-450)
[2018-04-30] MEDS: Memantine 10mg tab ORAL SCH ×2 (10:02→17:31)
[2018-04-30] MEDS: Ascorbic Acid 500mg tab ORAL SCH (10:02)
[2018-04-30] MEDS: Pantoprazole Inj IV SCH (10:02)
[2018-04-30] MEDS: Lactulose 10gm/15ml UDC ORAL SCH ×3 (10:02→17:36)
[2018-04-30] MEDS: Docusate 100mg cap ORAL SCH ×2 (10:02→17:31)
[2018-04-30] MEDS: Nystatin Susp 500,000 units/5ml ORAL SCH ×4 (10:03→21:12)
[2018-04-30] MEDS: Lactulose 20gm/30ml UDC ORAL SCH ×3 (10:03→17:37)
[2018-04-30] MEDS: Heparin 5000 units/ml inj SUBQ SCH ×2 (10:07→21:11)
--- NOTE | 2018-04-30 11:41 | General Progress Note ---
Assessment/Plan Assessment/Plan S: not verbal. O: limited evaluation . PHYSICAL EXAMINATION: HEAD AND NECK: Positive for the left-sided periorbital edema and swelling. NEUROLOGIC: The patient is awake, alert, and oriented x1. The patient is noncommunicative verbally and grossly demented - at baseline. MUSCULOSKELETAL: No gross focal motor deficit. PSYCHIATRIC: Mood and affect are flat. ABDOMEN: Soft. No organomegaly. IMAGING: Abd Ct reviewed Meds: reviewed and reconcilled ASSESSMENT AND PLAN: 1. Acute encephalopathy. 2. Head trauma, status post fall. 3. Sinus bradycardia. 4. Hyperlipidemia. 5. Psychiatric disorder. 6. Dementia. 7. Gastrointestinal and deep vein thrombosis prophylaxis. 8. New Leukocytosis 9. Fecal impaction PLAN OF CARE: Notes from Nephro, GI and Infection are reviewed Pending Swallow and Speech and swallow input may need PEG t Placement patient remains high risk for Aspiration with PO Subjective Allergies: Coded Allergies: No Known Allergies (Unverified , 10/29/16) Objective Last 24 Hour Vital Signs Date Time Temp Pulse Resp B/P (MAP) Pulse Ox O2 Delivery O2 Flow Rate FiO2 04/30/18 09:00 Room Air 04/30/18 08:15 97.8 78 20 154/87 (109) 95 97.8 04/30/18 04:00 99.0 67 19 115/84 (94) 99 99.0 04/30/18 00:00 97.6 63 19 128/66 (86) 99 97.6 04/29/18 22:16 122/83 04/29/18 21:00 Room Air 04/29/18 20:00 97.9 64 20 122/83 (96) 98 97.9 04/29/18 16:00 98.2 70 19 136/71 (92) 95 98.2 04/29/18 12:00 97.7 68 19 127/91 (103) 97 97.7 Intake and Output 04/29/18 04/30/18 19:00 07:00 Intake Total 80 ml 880 ml Balance 80 ml 880 ml IV Total 80 ml 880 ml # Voids 5 2 # Bowel Movements 1 Laboratory Tests 04/30/18 06:35: White Blood Count 11.9H, Red Blood Count 3.53L, Hemoglobin 11.5L, Hematocrit 32.2L, Mean Corpuscular Volume 91, Mean Corpuscular Hemoglobin 32.6H, Mean Corpuscular Hemoglobin Concent 35.7, Red Cell Distribution Width 11.3L, Platelet Count 216, Mean Platelet Volume 5.2L, Neutrophils (%) (Auto) 77.3H, Lymphocytes (%) (Auto) 16.7L, Monocytes (%) (Auto) 4.3, Eosinophils (%) (Auto) 0.4, Basophils (%) (Auto) 1.2, Sodium Level 144, Potassium Level 3.5, Chloride Level 110H, Carbon Dioxide Level 23, Anion Gap 11, Blood Urea Nitrogen 13, Creatinine 0.8, Estimat Glomerular Filtration Rate , Glucose Level 105, Calcium Level 8.8, Iron Level 66, Total Iron Binding Capacity 215L, Percent Iron Saturation 31, Unsaturated Iron Binding 149, Total Bilirubin 0.7, Aspartate Amino Transf (AST/SGOT) 21, Alanine Aminotransferase (ALT/SGPT) 41, Alkaline Phosphatase 49, Total Protein 6.9, Albumin 3.0L, Globulin 3.9, Albumin/Globulin Ratio 0.8L, Vitamin B12 Level 618, Folate 15.5 Height (Feet): 6 Height (Inches): 0.00 Weight (Pounds): 160 Daisy Bronson MD Apr 30, 2018 11:41
[2018-04-30 11:55] VITALS: BP 140/83
[2018-04-30 15:56] VITALS: BP 141/58
--- NOTE | 2018-04-30 16:16 | Infectious Diseases Prog Note ---
Assessment/Plan Problems: (1) Thrush, oral Assessment & Plan: suspect ck related , with possible ck esophagitis , screening for HIV is negative , recommend EGD to rule out ck esophagitis or organic reason for his dysphagia . continue oral nystatin (2) Failure to thrive Assessment & Plan: suspect poor oral intake , HIV is negative , and HCV, HBV screening is pending , recommend dietitian consult . may need tube feeding (3) Dysphagia Assessment & Plan: with esophagitis, may need EGD ck esophagitis or tumor . may need tube feeding due to poor oral intake Subjective ROS Limited/Unobtainable: Yes Allergies: Coded Allergies: No Known Allergies (Unverified , 10/29/16) Subjective he was resting in bed quiet, and comfortable, not agitated, afebrile , NAD Objective Vital Signs Last 24 Hour Vital Signs Date Time Temp Pulse Resp B/P (MAP) Pulse Ox O2 Delivery O2 Flow Rate FiO2 04/30/18 15:56 98.6 85 20 141/58 (85) 95 98.6 04/30/18 11:55 98.2 75 20 140/83 (102) 95 98.2 04/30/18 09:00 Room Air 04/30/18 08:15 97.8 78 20 154/87 (109) 95 97.8 04/30/18 04:00 99.0 67 19 115/84 (94) 99 99.0 04/30/18 00:00 97.6 63 19 128/66 (86) 99 97.6 04/29/18 22:16 122/83 04/29/18 21:00 Room Air 04/29/18 20:00 97.9 64 20 122/83 (96) 98 97.9 Height (Feet): 6 Height (Inches): 0.00 Weight (Pounds): 160 General Appearance: WD/WN, no acute distress HEENT: normocephalic, atraumatic, anicteric, PERRL, EOMI, pharynx normal, supple, no JVD Respiratory/Chest: chest wall non-tender, lungs clear, normal breath sounds, no respiratory distress, no accessory muscle use Cardiovascular: normal peripheral pulses, normal rate, regular rhythm, no gallop/murmur, no JVD Abdomen: normal bowel sounds, soft, non tender, no organomegaly, non distended , no mass, no scars Extremities: no cyanosis, no clubbing Skin: no rash, no lesions, no ulcers Neurologic/Psychiatric: alert Lymphatic: no neck adenopathy, no groin adenopathy Musculoskeletal: normal muscle bulk Microbiology Date/Time Source Procedure Growth Status 04/28/18 23:29 Blood Blood Culture - Preliminary NO GROWTH AFTER 24 HOURS Resulted 04/28/18 23:14 Blood Blood Culture - Preliminary NO GROWTH AFTER 24 HOURS Resulted 04/28/18 17:29 Nasal Nares MRSA Culture - Final NO METHICILLIN RESISTANT STAPH AUREUS... Complete 04/28/18 17:29 Rectum VRE Culture - Final NO VANCOMYCIN RESISTANT ENTEROCOCCUS ... Complete 04/28/18 17:29 Rectum - Final NO CARBAPENEM-RESISTANT ENTEROBACTERI... Complete Laboratory Tests Test 04/30/18 06:35 04/30/18 12:40 White Blood Count 11.9 K/UL (4.8-10.8) H Red Blood Count 3.53 M/UL (4.70-6.10) L Hemoglobin 11.5 G/DL (14.2-18.0) L Hematocrit 32.2 % (42.0-52.0) L Mean Corpuscular Volume 91 FL (80-99) Mean Corpuscular Hemoglobin 32.6 PG (27.0-31.0) H Mean Corpuscular Hemoglobin Concent 35.7 G/DL (32.0-36.0) Red Cell Distribution Width 11.3 % (11.6-14.8) L Platelet Count 216 K/UL (150-450) Mean Platelet Volume 5.2 FL (6.5-10.1) L Neutrophils (%) (Auto) 77.3 % (45.0-75.0) H Lymphocytes (%) (Auto) 16.7 % (20.0-45.0) L Monocytes (%) (Auto) 4.3 % (1.0-10.0) Eosinophils (%) (Auto) 0.4 % (0.0-3.0) Basophils (%) (Auto) 1.2 % (0.0-2.0) Sodium Level 144 MMOL/L (136-145) Potassium Level 3.5 MMOL/L (3.5-5.1) Chloride Level 110 MMOL/L (98-107) H Carbon Dioxide Level 23 MMOL/L (21-32) Anion Gap 11 mmol/L (5-15) Blood Urea Nitrogen 13 mg/dL (7-18) Creatinine 0.8 MG/DL (0.55-1.30) Estimat Glomerular Filtration Rate mL/min (>60) Glucose Level 105 MG/DL (74-106) Calcium Level 8.8 MG/DL (8.5-10.1) Iron Level 66 ug/dL (50-175) Total Iron Binding Capacity 215 ug/dL (250-450) L Percent Iron Saturation 31 % (15-50) Unsaturated Iron Binding 149 ug/dL (112-346) Total Bilirubin 0.7 MG/DL (0.2-1.0) Aspartate Amino Transf (AST/SGOT) 21 U/L (15-37) Alanine Aminotransferase (ALT/SGPT) 41 U/L (12-78) Alkaline Phosphatase 49 U/L (46-116) Total Protein 6.9 G/DL (6.4-8.2) Albumin 3.0 G/DL (3.4-5.0) L Globulin 3.9 g/dL Albumin/Globulin Ratio 0.8 (1.0-2.7) L Vitamin B12 Level 618 PG/ML (193-986) Folate 15.5 NG/ML (8.6-58.9) Stool Occult Blood Pending Current Medications Medications (Trade) Dose Ordered Sig/Laura Route PRN Reason Start Time Stop Time Status Last Admin Dose Admin Acetaminophen (Tylenol) 650 mg Q4HR PRN ORAL Mild Pain/Temp > 100.5 04/28/18 21:45 05/28/18 21:44 Ascorbic Acid (Vitamin C) 500 mg DAILY ORAL 04/29/18 09:00 05/29/18 08:59 04/30/18 10:02 Atorvastatin Calcium (Lipitor) 20 mg BEDTIME ORAL 04/28/18 22:15 05/28/18 22:14 04/29/18 22:17 Baclofen (Lioresal) 10 mg BID ORAL 04/29/18 09:00 05/29/18 08:59 04/30/18 10:02 Dextrose/Sodium Chloride 1,000 ml @ 80 mls/hr [id number] IV 04/28/18 23:00 05/28/18 22:59 04/30/18 13:35 Docusate Sodium (Colace) 100 mg TWICE A DAY ORAL 04/29/18 09:00 05/29/18 08:59 04/30/18 10:02 Ferrous Sulfate (Feosol) 325 mg DAILY ORAL 04/29/18 09:00 05/29/18 08:59 04/30/18 10:02 Heparin Sodium (Porcine) (Heparin 5000 units/ml) 5,000 units EVERY 12 HOURS SUBQ 04/28/18 22:10 05/28/18 22:09 04/30/18 10:07 Iopamidol (Isovue-300 100ml) 100 ml NOW PRN INJ Radiology Procedure 04/28/18 18:00 Lactulose (Cephulac) 10 gm THREE TIMES A DAY ORAL 04/29/18 09:00 05/29/18 08:59 04/30/18 13:35 Lactulose (Cephulac) 30 gm TID ORAL 04/29/18 09:00 05/29/18 08:59 04/30/18 13:36 Losartan Potassium (Cozaar) 25 mg BEDTIME ORAL 04/28/18 22:30 05/28/18 22:29 04/29/18 22:16 Memantine (Namenda) 5 mg TWICE A DAY ORAL 04/29/18 09:00 05/29/18 08:59 04/30/18 10:02 Nystatin (Nystatin) 5 ml QID ORAL 04/29/18 18:00 05/06/18 17:59 04/30/18 13:36 Pantoprazole (Protonix) 40 mg DAILY IV 04/29/18 09:00 05/29/18 08:59 04/30/18 10:02 Polyethylene Glycol (Miralax) 17 gm BEDTIME ORAL 04/29/18 21:00 05/29/18 20:59 04/29/18 22:17 Carlos Bonilla M.D. Apr 30, 2018 16:16
[2018-04-30 20:00] VITALS: BP 99/60
[2018-04-30] MEDS: Miralax 17gm pkt ORAL SCH (21:00)
[2018-04-30] MEDS: Losartan 25mg tab ORAL SCH (21:00)
[2018-05-01] VITALS: BP 91/60
[2018-05-01] MEDS: D5NS 1,000 ML IV SCH ×2 (01:05→14:14)
[2018-05-01 04:00] VITALS: BP 109/88
[2018-05-01 08:00] VITALS: BP 113/70
[2018-05-01] MEDS: Nystatin Susp 500,000 units/5ml ORAL SCH ×4 (09:37→20:44)
[2018-05-01] MEDS: Docusate 100mg cap ORAL SCH ×2 (09:37→17:28)
[2018-05-01] MEDS: Lactulose 10gm/15ml UDC ORAL SCH ×3 (09:37→17:30)
[2018-05-01] MEDS: Lactulose 20gm/30ml UDC ORAL SCH ×3 (09:37→17:28)
[2018-05-01] MEDS: Ascorbic Acid 500mg tab ORAL SCH (09:37)
[2018-05-01] MEDS: Memantine 10mg tab ORAL SCH ×2 (09:38→17:28)
[2018-05-01] MEDS: Pantoprazole Inj IV SCH (09:38)
[2018-05-01] MEDS: Heparin 5000 units/ml inj SUBQ SCH ×2 (09:40→20:45)
[2018-05-01 10:19] LABS: BASOPHILS % (AUTO) 1.3 % (0.0-2.0); EOSINOPHILS % (AUTO) 1.4 % (0.0-3.0); HEMATOCRIT 31.7 % (42.0-52.0); HEMOGLOBIN 11.1 G/DL (14.2-18.0); LYMPHOCYTES % (AUTO) 24.1 % (20.0-45.0); MEAN CORPUSCULAR VOLUME 90 FL (80-99); MONOCYTES % (AUTO) 8.1 % (1.0-10.0); PLATELET COUNT 205 K/UL (150-450); RED BLOOD COUNT 3.52 M/UL (4.70-6.10); WHITE BLOOD COUNT 8.3 K/UL (4.8-10.8)
--- NOTE | 2018-05-01 10:23 | GI Progress Note ---
Assessment/Plan Problems: (1) Thrush, oral ICD Codes: B37.0 - Candidal stomatitis SNOMED: 12646032 (2) Failure to thrive SNOMED: 97463007 Qualifiers: Qualified Codes: R62.7 - Adult failure to thrive (3) Dehydration ICD Codes: E86.0 - Dehydration SNOMED: 71767905, 451928376 (4) Dysphagia ICD Codes: R13.10 - Dysphagia, unspecified SNOMED: 57276220, 848764099 Qualifiers: Qualified Codes: R13.10 - Dysphagia, unspecified (5) Constipation ICD Codes: K59.00 - Constipation, unspecified SNOMED: 38430606, 016529074 Qualifiers: Qualified Codes: K59.00 - Constipation, unspecified (6) Encounter for generalized patient complaints ICD Codes: Z00.8 - Encounter for other general examination SNOMED: 615738542 Status: stable Status Narrative Discussed with Dr. Combs. Assessment/Plan Assessment/Plan 1. Constipation/stool impaction. 2. Failure to thrive. 3. Distal esophageal wall thickening. 4. Gallstones. 5. Anemia, normocytic. 6. Coronary artery disease. 7. Dementia. ST evaluation today repeat enema and if no BM will need manual disimpaction bowel regimen anemia work up puree diet for now PEG plan if needed fu labs The patient was seen and examined at bedside and all new and available data was reviewed in the patients chart. I agree with the above findings, impression and plan. (Patient seen earlier today. Signature stamp does not reflect patient encounter time.). - Alex Combs MD Subjective Subjective limited Objective Last 24 Hour Vital Signs Date Time Temp Pulse Resp B/P (MAP) Pulse Ox O2 Delivery O2 Flow Rate FiO2 05/01/18 08:00 97.8 86 19 113/70 (84) 100 97.8 05/01/18 04:00 97.8 67 19 109/88 (95) 100 97.8 05/01/18 00:00 97.5 70 20 91/60 (70) 99 97.5 04/30/18 21:00 Room Air 04/30/18 21:00 99/60 04/30/18 20:00 98.0 80 19 99/60 (73) 100 98.0 04/30/18 15:56 98.6 85 20 141/58 (85) 95 98.6 04/30/18 11:55 98.2 75 20 140/83 (102) 95 98.2 Intake and Output 04/30/18 05/01/18 18:59 06:59 Intake Total 1365 ml 880 ml Output Total 300 ml Balance 1065 ml 880 ml Intake Oral 360 ml IV Total 1005 ml 880 ml Output Urine Total 300 ml # Voids 1 3 # Bowel Movements 2 1 Laboratory Tests Test 04/30/18 12:40 05/01/18 09:40 Stool Occult Blood Pending White Blood Count Pending Red Blood Count Pending Hemoglobin Pending Hematocrit Pending Mean Corpuscular Volume Pending Mean Corpuscular Hemoglobin Pending Mean Corpuscular Hemoglobin Concent Pending Red Cell Distribution Width Pending Platelet Count Pending Mean Platelet Volume Pending Neutrophils (%) (Auto) Pending Lymphocytes (%) (Auto) Pending Monocytes (%) (Auto) Pending Eosinophils (%) (Auto) Pending Basophils (%) (Auto) Pending Sodium Level Pending Potassium Level Pending Chloride Level Pending Carbon Dioxide Level Pending Blood Urea Nitrogen Pending Creatinine Pending Estimat Glomerular Filtration Rate Pending Glucose Level Pending Calcium Level Pending Height (Feet): 6 Height (Inches): 0.00 Weight (Pounds): 160 General Appearance: WD/WN, no apparent distress, alert, thin Cardiovascular: normal rate Respiratory/Chest: normal breath sounds, no respiratory distress Abdominal Exam: normal bowel sounds, non tender, soft Extremities: non-tender Tyron Correa NP May 01, 2018 10:23
[2018-05-01 10:35] LABS: ANION GAP 8 mmol/L (5-15); BLOOD UREA NITROGEN 8 mg/dL (7-18); CALCIUM 8.5 MG/DL (8.5-10.1); CARBON DIOXIDE 25 MMOL/L (21-32); CHLORIDE 110 MMOL/L (98-107); CREATININE 0.8 MG/DL (0.55-1.30); POTASSIUM 3.9 MMOL/L (3.5-5.1); SODIUM 143 MMOL/L (136-145)
[2018-05-01 11:52] VITALS: BP 120/70
--- NOTE | 2018-05-01 12:33 | General Progress Note ---
Assessment/Plan Assessment/Plan S: not verbal. O: limited evaluation . PHYSICAL EXAMINATION: HEAD AND NECK: Positive for the left-sided periorbital edema and swelling. NEUROLOGIC: The patient is awake, alert, and oriented x1. The patient is noncommunicative verbally and grossly demented - at baseline. MUSCULOSKELETAL: No gross focal motor deficit. PSYCHIATRIC: Mood and affect are flat. ABDOMEN: Soft. No organomegaly. IMAGING: Abd Ct reviewed Meds: reviewed and reconciled ASSESSMENT AND PLAN: 1. Acute encephalopathy. 2. Head trauma, status post fall. 3. Sinus bradycardia. 4. Hyperlipidemia. 5. Psychiatric disorder. 6. Dementia. 7. Gastrointestinal and deep vein thrombosis prophylaxis. 8. New Leukocytosis 9. Fecal impaction PLAN OF CARE: Notes from Nephro, GI and Infection are reviewed Pending Swallow and Speech and swallow input may need PEG t Placement patient remains high risk for Aspiration with PO feed Pending Swallow eval , likely will proceed with PEG after then. Subjective Allergies: Coded Allergies: No Known Allergies (Unverified , 10/29/16) Objective Last 24 Hour Vital Signs Date Time Temp Pulse Resp B/P (MAP) Pulse Ox O2 Delivery O2 Flow Rate FiO2 05/01/18 11:52 98.8 89 19 120/70 (87) 100 98.8 05/01/18 09:00 Room Air 05/01/18 08:00 97.8 86 19 113/70 (84) 100 97.8 05/01/18 04:00 97.8 67 19 109/88 (95) 100 97.8 05/01/18 00:00 97.5 70 20 91/60 (70) 99 97.5 04/30/18 21:00 Room Air 04/30/18 21:00 99/60 04/30/18 20:00 98.0 80 19 99/60 (73) 100 98.0 04/30/18 15:56 98.6 85 20 141/58 (85) 95 98.6 Intake and Output 04/30/18 05/01/18 19:00 07:00 Intake Total 1285 ml 880 ml Output Total 300 ml Balance 985 ml 880 ml Intake Oral 360 ml IV Total 925 ml 880 ml Output Urine Total 300 ml # Voids 1 3 # Bowel Movements 2 1 Laboratory Tests 04/30/18 12:40: Stool Occult Blood Negative 05/01/18 09:40: White Blood Count 8.3, Red Blood Count 3.52L, Hemoglobin 11.1L, Hematocrit 31.7L , Mean Corpuscular Volume 90, Mean Corpuscular Hemoglobin 31.4H, Mean Corpuscular Hemoglobin Concent 34.9, Red Cell Distribution Width 11.0L, Platelet Count 205, Mean Platelet Volume 4.7L, Neutrophils (%) (Auto) 65.0, Lymphocytes (%) (Auto) 24.1, Monocytes (%) (Auto) 8.1, Eosinophils (%) (Auto) 1.4, Basophils (%) (Auto) 1.3, Sodium Level 143, Potassium Level 3.9, Chloride Level 110H, Carbon Dioxide Level 25, Anion Gap 8, Blood Urea Nitrogen 8, Creatinine 0.8, Estimat Glomerular Filtration Rate , Glucose Level 87, Calcium Level 8.5 Height (Feet): 6 Height (Inches): 0.00 Weight (Pounds): 160 Daisy Bronson MD May 01, 2018 12:33
--- NOTE | 2018-05-01 13:40 | Infectious Diseases Prog Note ---
Assessment/Plan Problems: (1) Thrush, oral Assessment & Plan: suspect ck related , with possible ck esophagitis , screening for HIV is negative , recommend EGD to rule out ck esophagitis or organic reason for his dysphagia . continue oral nystatin (2) Failure to thrive Assessment & Plan: suspect poor oral intake , HIV is negative , and HCV, HBV screening is pending , recommend dietitian consult . may need tube feeding (3) Dysphagia Assessment & Plan: with esophagitis, may need EGD ck esophagitis or tumor . may need tube feeding due to poor oral intake Subjective ROS Limited/Unobtainable: Yes Allergies: Coded Allergies: No Known Allergies (Unverified , 10/29/16) Subjective he was resting in bed quiet, and comfortable, not agitated, afebrile , NAD Objective Vital Signs Last 24 Hour Vital Signs Date Time Temp Pulse Resp B/P (MAP) Pulse Ox O2 Delivery O2 Flow Rate FiO2 05/01/18 11:52 98.8 89 19 120/70 (87) 100 98.8 05/01/18 09:00 Room Air 05/01/18 08:00 97.8 86 19 113/70 (84) 100 97.8 05/01/18 04:00 97.8 67 19 109/88 (95) 100 97.8 05/01/18 00:00 97.5 70 20 91/60 (70) 99 97.5 04/30/18 21:00 Room Air 04/30/18 21:00 99/60 04/30/18 20:00 98.0 80 19 99/60 (73) 100 98.0 04/30/18 15:56 98.6 85 20 141/58 (85) 95 98.6 Height (Feet): 6 Height (Inches): 0.00 Weight (Pounds): 160 General Appearance: WD/WN HEENT: normocephalic, atraumatic, anicteric, mucous membranes moist Respiratory/Chest: chest wall non-tender, lungs clear, normal breath sounds, no respiratory distress, no accessory muscle use Cardiovascular: normal peripheral pulses, normal rate, regular rhythm, no gallop/murmur, no JVD Abdomen: normal bowel sounds, soft, non tender, no organomegaly, non distended , no mass, no scars, hypoactive bowel sounds Extremities: no cyanosis, no clubbing Skin: no rash, no lesions, no ulcers Neurologic/Psychiatric: alert, oriented x 3, responsive Lymphatic: no neck adenopathy, no groin adenopathy Musculoskeletal: normal muscle bulk, no effusion Microbiology Date/Time Source Procedure Growth Status 04/28/18 23:29 Blood Blood Culture - Preliminary NO GROWTH AFTER 48 HOURS Resulted 04/28/18 23:14 Blood Blood Culture - Preliminary NO GROWTH AFTER 48 HOURS Resulted 04/28/18 17:29 Nasal Nares MRSA Culture - Final NO METHICILLIN RESISTANT STAPH AUREUS... Complete 04/28/18 17:29 Rectum VRE Culture - Final NO VANCOMYCIN RESISTANT ENTEROCOCCUS ... Complete 04/28/18 17:29 Rectum - Final NO CARBAPENEM-RESISTANT ENTEROBACTERI... Complete Laboratory Tests Test 05/01/18 09:40 White Blood Count 8.3 K/UL (4.8-10.8) Red Blood Count 3.52 M/UL (4.70-6.10) L Hemoglobin 11.1 G/DL (14.2-18.0) L Hematocrit 31.7 % (42.0-52.0) L Mean Corpuscular Volume 90 FL (80-99) Mean Corpuscular Hemoglobin 31.4 PG (27.0-31.0) H Mean Corpuscular Hemoglobin Concent 34.9 G/DL (32.0-36.0) Red Cell Distribution Width 11.0 % (11.6-14.8) L Platelet Count 205 K/UL (150-450) Mean Platelet Volume 4.7 FL (6.5-10.1) L Neutrophils (%) (Auto) 65.0 % (45.0-75.0) Lymphocytes (%) (Auto) 24.1 % (20.0-45.0) Monocytes (%) (Auto) 8.1 % (1.0-10.0) Eosinophils (%) (Auto) 1.4 % (0.0-3.0) Basophils (%) (Auto) 1.3 % (0.0-2.0) Sodium Level 143 MMOL/L (136-145) Potassium Level 3.9 MMOL/L (3.5-5.1) Chloride Level 110 MMOL/L (98-107) H Carbon Dioxide Level 25 MMOL/L (21-32) Anion Gap 8 mmol/L (5-15) Blood Urea Nitrogen 8 mg/dL (7-18) Creatinine 0.8 MG/DL (0.55-1.30) Estimat Glomerular Filtration Rate mL/min (>60) Glucose Level 87 MG/DL (74-106) Calcium Level 8.5 MG/DL (8.5-10.1) Current Medications Medications (Trade) Dose Ordered Sig/Laura Route PRN Reason Start Time Stop Time Status Last Admin Dose Admin Acetaminophen (Tylenol) 650 mg Q4HR PRN ORAL Mild Pain/Temp > 100.5 04/28/18 21:45 05/28/18 21:44 Ascorbic Acid (Vitamin C) 500 mg DAILY ORAL 04/29/18 09:00 05/29/18 08:59 05/01/18 09:37 Atorvastatin Calcium (Lipitor) 20 mg BEDTIME ORAL 04/28/18 22:15 05/28/18 22:14 04/30/18 21:11 Baclofen (Lioresal) 10 mg BID ORAL 04/29/18 09:00 05/29/18 08:59 05/01/18 09:38 Dextrose/Sodium Chloride 1,000 ml @ 80 mls/hr [id number] IV 04/28/18 23:00 05/28/18 22:59 05/01/18 01:05 Docusate Sodium (Colace) 100 mg TWICE A DAY ORAL 04/29/18 09:00 05/29/18 08:59 05/01/18 09:37 Ferrous Sulfate (Feosol) 325 mg DAILY ORAL 04/29/18 09:00 05/29/18 08:59 05/01/18 09:38 Heparin Sodium (Porcine) (Heparin 5000 units/ml) 5,000 units EVERY 12 HOURS SUBQ 04/28/18 22:10 05/28/18 22:09 05/01/18 09:40 Iopamidol (Isovue-300 100ml) 100 ml NOW PRN INJ Radiology Procedure 04/28/18 18:00 Lactulose (Cephulac) 10 gm THREE TIMES A DAY ORAL 04/29/18 09:00 05/29/18 08:59 05/01/18 09:37 Lactulose (Cephulac) 30 gm TID ORAL 04/29/18 09:00 05/29/18 08:59 05/01/18 09:37 Losartan Potassium (Cozaar) 25 mg BEDTIME ORAL 04/28/18 22:30 05/28/18 22:29 04/29/18 22:16 Memantine (Namenda) 5 mg TWICE A DAY ORAL 04/29/18 09:00 05/29/18 08:59 05/01/18 09:38 Nystatin (Nystatin) 5 ml QID ORAL 04/29/18 18:00 05/06/18 17:59 05/01/18 09:37 Pantoprazole (Protonix) 40 mg DAILY IV 04/29/18 09:00 05/29/18 08:59 05/01/18 09:38 Polyethylene Glycol (Miralax) 17 gm BEDTIME ORAL 04/29/18 21:00 05/29/18 20:59 04/29/18 22:17 Carlos Bonilla M.D. May 01, 2018 13:40
--- NOTE | 2018-05-01 13:57 | Consultation ---
History of Present Illness General Date patient seen: May 01, 2018 Chief Complaint: Gastrointestinal Illness Present Illness HPI 77-year-old male with past medical history of hypertension, asthma, COPD, GERD, dementia, who was sent from his detention facility for poor oral intake. the pt swallows well. the pt has been withdrawn and has psychomotor retardation yesterday he has 75% today 25% po intake the pt was unable to participate and answer the questions. Allergies: Coded Allergies: No Known Allergies (Unverified , 10/29/16) Medication History Scheduled Ascorbic Acid* (Vitamin C*), 500 MG ORAL DAILY, (Reported) Atorvastatin Calcium* (Lipitor*), 20 MG ORAL BEDTIME, (Reported) Baclofen* (Baclofen*), 10 MG ORAL BID, (Reported) Docusate Sodium* (Docusate Sodium*), 50 MG ORAL TWICE A DAY, (Reported) Ferrous Sulfate* (Ferrous Sulfate*), 325 MG ORAL DAILY, (Reported) Lactulose (Lactulose*), 45 ML ORAL TID, (Reported) Losartan Potassium* (Cozaar*), 25 MG ORAL BEDTIME, (Reported) Megestrol Acetate (Megestrol Acetate), 400 MG PO BID, (Reported) Memantine Hcl* (Namenda*), 5 MG ORAL TWICE A DAY, (Reported) Scheduled PRN Acetaminophen (Tylenol), 650 MG ORAL Q4HR PRN for Mild Pain/Temp > 100.5, ( Reported) Melatonin (Melatonin), 6 MG ORAL BEDTIME PRN for Insomnia, (Reported) Miscellaneous Medications Vitamin B Complex/Folic Acid (Vitamin B-100 Complex Tablet), Unknown Dose PO, ( Reported) Discontinued Medications Bisacodyl (Dulcolax), 10 MG RC DAILY PRN for Constipation, (Reported) Discontinued Reason: MD discontinued med Cranberry Fruit Concentrate (Cranberry), 450 MG PO BID, (Reported) Discontinued Reason: MD discontinued med Magnesium Hydroxide (Milk of Magnesia), 30 ML ORAL BEDTIME, (Reported) Discontinued Reason: MD discontinued med Memantine Hcl* (Namenda*), 5 MG ORAL TWICE A DAY, (Reported) Discontinued Reason: MD discontinued med Multivitamins* (Multivitamins*), 1 TAB ORAL BID, (Reported) Discontinued Reason: MD discontinued med Quetiapine Fumarate* (Seroquel*), 25 MG ORAL TWICE A DAY, (Reported) Discontinued Reason: discontinued med Patient History Limited by: medical condition History Provided By: Patient, Medical Record, PMD Healthcare decision maker N Resuscitation status Full Code Advanced Directive on File No Past Medical/Surgical History Past Medical/Surgical History: (1) Sepsis (2) Constipation (3) Dysphagia (4) Failure to thrive (5) Thrush, oral (6) Dehydration (7) Encounter for generalized patient complaints Review of Systems Psychiatric: Reports: prior hx, depressed feelings Physical Exam General Appearance: no apparent distress, alert, confused Last 24 Hour Vital Signs Date Time Temp Pulse Resp B/P (MAP) Pulse Ox O2 Delivery O2 Flow Rate FiO2 05/01/18 11:52 98.8 89 19 120/70 (87) 100 98.8 05/01/18 09:00 Room Air 05/01/18 08:00 97.8 86 19 113/70 (84) 100 97.8 05/01/18 04:00 97.8 67 19 109/88 (95) 100 97.8 05/01/18 00:00 97.5 70 20 91/60 (70) 99 97.5 04/30/18 21:00 Room Air 04/30/18 21:00 99/60 04/30/18 20:00 98.0 80 19 99/60 (73) 100 98.0 04/30/18 15:56 98.6 85 20 141/58 (85) 95 98.6 Intake and Output 04/30/18 05/01/18 19:00 07:00 Intake Total 1285 ml 880 ml Output Total 300 ml Balance 985 ml 880 ml Intake Oral 360 ml IV Total 925 ml 880 ml Output Urine Total 300 ml # Voids 1 3 # Bowel Movements 2 1 Laboratory Tests Test 05/01/18 09:40 White Blood Count 8.3 K/UL (4.8-10.8) Red Blood Count 3.52 M/UL (4.70-6.10) L Hemoglobin 11.1 G/DL (14.2-18.0) L Hematocrit 31.7 % (42.0-52.0) L Mean Corpuscular Volume 90 FL (80-99) Mean Corpuscular Hemoglobin 31.4 PG (27.0-31.0) H Mean Corpuscular Hemoglobin Concent 34.9 G/DL (32.0-36.0) Red Cell Distribution Width 11.0 % (11.6-14.8) L Platelet Count 205 K/UL (150-450) Mean Platelet Volume 4.7 FL (6.5-10.1) L Neutrophils (%) (Auto) 65.0 % (45.0-75.0) Lymphocytes (%) (Auto) 24.1 % (20.0-45.0) Monocytes (%) (Auto) 8.1 % (1.0-10.0) Eosinophils (%) (Auto) 1.4 % (0.0-3.0) Basophils (%) (Auto) 1.3 % (0.0-2.0) Sodium Level 143 MMOL/L (136-145) Potassium Level 3.9 MMOL/L (3.5-5.1) Chloride Level 110 MMOL/L (98-107) H Carbon Dioxide Level 25 MMOL/L (21-32) Anion Gap 8 mmol/L (5-15) Blood Urea Nitrogen 8 mg/dL (7-18) Creatinine 0.8 MG/DL (0.55-1.30) Estimat Glomerular Filtration Rate mL/min (>60) Glucose Level 87 MG/DL (74-106) Calcium Level 8.5 MG/DL (8.5-10.1) Height (Feet): 6 Height (Inches): 0.00 Weight (Pounds): 160 Medications Current Medications Medications (Trade) Dose Ordered Sig/Laura Route PRN Reason Start Time Stop Time Status Last Admin Dose Admin Acetaminophen (Tylenol) 650 mg Q4HR PRN ORAL Mild Pain/Temp > 100.5 04/28/18 21:45 05/28/18 21:44 Ascorbic Acid (Vitamin C) 500 mg DAILY ORAL 04/29/18 09:00 05/29/18 08:59 05/01/18 09:37 Atorvastatin Calcium (Lipitor) 20 mg BEDTIME ORAL 04/28/18 22:15 05/28/18 22:14 04/30/18 21:11 Baclofen (Lioresal) 10 mg BID ORAL 04/29/18 09:00 05/29/18 08:59 05/01/18 09:38 Dextrose/Sodium Chloride 1,000 ml @ 80 mls/hr [id number] IV 04/28/18 23:00 05/28/18 22:59 05/01/18 01:05 Docusate Sodium (Colace) 100 mg TWICE A DAY ORAL 04/29/18 09:00 05/29/18 08:59 05/01/18 09:37 Ferrous Sulfate (Feosol) 325 mg DAILY ORAL 04/29/18 09:00 05/29/18 08:59 05/01/18 09:38 Heparin Sodium (Porcine) (Heparin 5000 units/ml) 5,000 units EVERY 12 HOURS SUBQ 04/28/18 22:10 05/28/18 22:09 05/01/18 09:40 Iopamidol (Isovue-300 100ml) 100 ml NOW PRN INJ Radiology Procedure 04/28/18 18:00 Lactulose (Cephulac) 10 gm THREE TIMES A DAY ORAL 04/29/18 09:00 05/29/18 08:59 05/01/18 09:37 Lactulose (Cephulac) 30 gm TID ORAL 04/29/18 09:00 05/29/18 08:59 05/01/18 09:37 Losartan Potassium (Cozaar) 25 mg BEDTIME ORAL 04/28/18 22:30 05/28/18 22:29 04/29/18 22:16 Memantine (Namenda) 5 mg TWICE A DAY ORAL 04/29/18 09:00 05/29/18 08:59 05/01/18 09:38 Nystatin (Nystatin) 5 ml QID ORAL 04/29/18 18:00 05/06/18 17:59 05/01/18 09:37 Pantoprazole (Protonix) 40 mg DAILY IV 04/29/18 09:00 05/29/18 08:59 05/01/18 09:38 Polyethylene Glycol (Miralax) 17 gm BEDTIME ORAL 04/29/18 21:00 05/29/18 20:59 04/29/18 22:17 Assessment/Plan Assessment/Plan encephalopathy due to [facility] Depression failure to thrive the pt lacks capacity to make decisions will start Vanessa Luo MD May 01, 2018 13:57
[2018-05-01 16:00] VITALS: BP 129/82
[2018-05-01 19:50] VITALS: BP 118/69
[2018-05-01] MEDS: Miralax 17gm pkt ORAL SCH (20:43)
[2018-05-01] MEDS: Losartan 25mg tab ORAL SCH (20:44)
[2018-05-02] VITALS (7 sets, daily range): BP systolic 100–140; BP diastolic 61–84
[2018-05-02] MEDS: D5NS 1,000 ML IV SCH ×2 (02:23→14:01)
[2018-05-02] MEDS: Memantine 10mg tab ORAL SCH ×2 (09:00→17:34)
[2018-05-02] MEDS: Pantoprazole Inj IV SCH (09:00)
[2018-05-02] MEDS: Ascorbic Acid 500mg tab ORAL SCH (09:00)
[2018-05-02] MEDS: Docusate 100mg cap ORAL SCH ×2 (09:00→17:34)
[2018-05-02] MEDS: Nystatin Susp 500,000 units/5ml ORAL SCH ×4 (09:01→21:06)
[2018-05-02] MEDS: Lactulose 10gm/15ml UDC ORAL SCH ×3 (09:01→17:40)
[2018-05-02] MEDS: Lactulose 20gm/30ml UDC ORAL SCH ×3 (09:01→17:34)
[2018-05-02] MEDS: Heparin 5000 units/ml inj SUBQ SCH ×2 (09:02→21:10)
--- NOTE | 2018-05-02 10:41 | General Progress Note ---
Assessment/Plan Assessment/Plan encephalopathy due to [facility] Depression failure to thrive the pt lacks capacity to make decisions cont lexapro the pt was provided ro/st Subjective Date patient seen: May 02, 2018 Neurologic/Psychiatric: Reports: depressed Allergies: Coded Allergies: No Known Allergies (Unverified , 10/29/16) Subjective the pt ate better today more alert and active Objective Last 24 Hour Vital Signs Date Time Temp Pulse Resp B/P (MAP) Pulse Ox O2 Delivery O2 Flow Rate FiO2 05/02/18 09:00 Room Air 05/02/18 08:00 98.0 69 18 140/84 (102) 93 98.0 05/02/18 04:00 98.1 65 18 131/71 (91) 93 98.1 05/02/18 00:46 97.2 58 17 122/61 (81) 100 97.2 05/01/18 21:00 Room Air 05/01/18 20:44 118/69 05/01/18 19:50 97.5 70 18 118/69 (85) 99 97.5 05/01/18 16:00 97.9 81 19 129/82 (98) 100 97.9 05/01/18 11:52 98.8 89 19 120/70 (87) 100 98.8 Intake and Output 05/01/18 05/02/18 19:00 07:00 Intake Total 280 ml 640 ml Balance 280 ml 640 ml IV Total 80 ml 640 ml Other 200 ml # Voids 3 Height (Feet): 6 Height (Inches): 0.00 Weight (Pounds): 160 General Appearance: no apparent distress, alert, confused Vanessa Booker MD May 02, 2018 10:41
--- NOTE | 2018-05-02 11:32 | General Progress Note ---
Assessment/Plan Assessment/Plan S: not verbal. O: limited evaluation . PHYSICAL EXAMINATION: HEAD AND NECK: Positive for the left-sided periorbital edema and swelling. NEUROLOGIC: The patient is awake, alert, and oriented x1. The patient is noncommunicative verbally and grossly demented - at baseline. MUSCULOSKELETAL: No gross focal motor deficit. PSYCHIATRIC: Mood and affect are flat. ABDOMEN: Soft. No organomegaly. IMAGING: Abd Ct reviewed Meds: reviewed and reconciled ASSESSMENT AND PLAN: 1. Acute encephalopathy. 2. Head trauma, status post fall. 3. Sinus bradycardia. 4. Hyperlipidemia. 5. Psychiatric disorder. 6. Dementia. 7. Gastrointestinal and deep vein thrombosis prophylaxis. 8. New Leukocytosis 9. Fecal impaction PLAN OF CARE: patient remains high risk for Aspiration with PO feed Pending Swallow eval , likely will proceed with PEG after then. Subjective Allergies: Coded Allergies: No Known Allergies (Unverified , 10/29/16) Objective Last 24 Hour Vital Signs Date Time Temp Pulse Resp B/P (MAP) Pulse Ox O2 Delivery O2 Flow Rate FiO2 05/02/18 09:00 Room Air 05/02/18 08:00 98.0 69 18 140/84 (102) 93 98.0 05/02/18 04:00 98.1 65 18 131/71 (91) 93 98.1 05/02/18 00:46 97.2 58 17 122/61 (81) 100 97.2 05/01/18 21:00 Room Air 05/01/18 20:44 118/69 05/01/18 19:50 97.5 70 18 118/69 (85) 99 97.5 05/01/18 16:00 97.9 81 19 129/82 (98) 100 97.9 05/01/18 11:52 98.8 89 19 120/70 (87) 100 98.8 Intake and Output 05/01/18 05/02/18 19:00 07:00 Intake Total 280 ml 640 ml Balance 280 ml 640 ml IV Total 80 ml 640 ml Other 200 ml # Voids 3 Height (Feet): 6 Height (Inches): 0.00 Weight (Pounds): 160 Daisy Bronson MD May 02, 2018 11:32
--- NOTE | 2018-05-02 13:19 | GI Progress Note ---
Assessment/Plan Problems: (1) Thrush, oral ICD Codes: B37.0 - Candidal stomatitis SNOMED: 44690031 (2) Failure to thrive SNOMED: 90192632 Qualifiers: Qualified Codes: R62.7 - Adult failure to thrive (3) Dehydration ICD Codes: E86.0 - Dehydration SNOMED: 16393656, 525313398 (4) Dysphagia ICD Codes: R13.10 - Dysphagia, unspecified SNOMED: 46955169, 378062776 Qualifiers: Qualified Codes: R13.10 - Dysphagia, unspecified (5) Constipation ICD Codes: K59.00 - Constipation, unspecified SNOMED: 96559538, 339710226 Qualifiers: Qualified Codes: K59.00 - Constipation, unspecified (6) Encounter for generalized patient complaints ICD Codes: Z00.8 - Encounter for other general examination SNOMED: 109280966 Status: unchanged Status Narrative Discussed with Dr. Combs. Assessment/Plan Assessment/Plan 1. Constipation/stool impaction. 2. Failure to thrive. 3. Distal esophageal wall thickening. 4. Gallstones. 5. Anemia, normocytic. 6. Coronary artery disease. 7. Dementia. patient passed ST evaluation, pending video study tomorrow. EGD scheduled tomorrow r/o esophageal ck - NPO @ NM. - hold all blood thinners repeat enema and if no BM will need manual disimpaction bowel regimen anemia work up puree diet for now PEG plan if needed fu labs The patient was seen and examined at bedside and all new and available data was reviewed in the patients chart. I agree with the above findings, impression and plan. (Patient seen earlier today. Signature stamp does not reflect patient encounter time.). - Alex Combs MD Subjective Subjective limited Objective Last 24 Hour Vital Signs Date Time Temp Pulse Resp B/P (MAP) Pulse Ox O2 Delivery O2 Flow Rate FiO2 05/02/18 11:51 97.6 72 18 128/80 (96) 96 97.6 05/02/18 11:49 97.6 72 18 128/84 (99) 93 97.6 05/02/18 09:00 Room Air 05/02/18 08:00 98.0 69 18 140/84 (102) 93 98.0 05/02/18 04:00 98.1 65 18 131/71 (91) 93 98.1 05/02/18 00:46 97.2 58 17 122/61 (81) 100 97.2 05/01/18 21:00 Room Air 05/01/18 20:44 118/69 05/01/18 19:50 97.5 70 18 118/69 (85) 99 97.5 05/01/18 16:00 97.9 81 19 129/82 (98) 100 97.9 Intake and Output 05/01/18 05/02/18 19:00 07:00 Intake Total 280 ml 640 ml Balance 280 ml 640 ml IV Total 80 ml 640 ml Other 200 ml # Voids 3 Height (Feet): 6 Height (Inches): 0.00 Weight (Pounds): 160 General Appearance: alert Cardiovascular: normal rate, regular rhythm Respiratory/Chest: normal breath sounds, no respiratory distress Abdominal Exam: normal bowel sounds, non tender, soft Genitourinary/Rectal: normal rectal exam Tyron Correa NP May 02, 2018 13:19
[2018-05-02] MEDS ORDERED: D5NS 1000ml IV ONE (15:02)
--- NOTE | 2018-05-02 16:47 | Infectious Diseases Prog Note ---
Assessment/Plan Problems: (1) Thrush, oral Assessment & Plan: suspect ck related , with possible ck esophagitis , screening for HIV is negative , recommend EGD to rule out ck esophagitis or organic reason for his dysphagia . continue oral nystatin (2) Failure to thrive Assessment & Plan: suspect poor oral intake , HIV is negative , and HCV, HBV screening is pending , recommend dietitian consult . may need tube feeding (3) Dysphagia Assessment & Plan: with esophagitis, may need EGD ck esophagitis or tumor . may need tube feeding due to poor oral intake Subjective ROS Limited/Unobtainable: Yes Allergies: Coded Allergies: No Known Allergies (Unverified , 10/29/16) Subjective he was resting in bed quiet, and comfortable, not agitated, afebrile , NAD Objective Vital Signs Last 24 Hour Vital Signs Date Time Temp Pulse Resp B/P (MAP) Pulse Ox O2 Delivery O2 Flow Rate FiO2 05/02/18 16:08 98.4 64 18 130/82 (98) 98 98.4 05/02/18 11:51 97.6 72 18 128/80 (96) 96 97.6 05/02/18 11:49 97.6 72 18 128/84 (99) 93 97.6 05/02/18 09:00 Room Air 05/02/18 08:00 98.0 69 18 140/84 (102) 93 98.0 05/02/18 04:00 98.1 65 18 131/71 (91) 93 98.1 05/02/18 00:46 97.2 58 17 122/61 (81) 100 97.2 05/01/18 21:00 Room Air 05/01/18 20:44 118/69 05/01/18 19:50 97.5 70 18 118/69 (85) 99 97.5 Height (Feet): 6 Height (Inches): 0.00 Weight (Pounds): 160 General Appearance: WD/WN, no acute distress, cachetic HEENT: normocephalic, atraumatic, anicteric, mucous membranes moist, PERRL Respiratory/Chest: chest wall non-tender, lungs clear, normal breath sounds, no respiratory distress, no accessory muscle use Cardiovascular: normal peripheral pulses, normal rate, regular rhythm, no gallop/murmur, no JVD Abdomen: normal bowel sounds, soft, non tender, no organomegaly, non distended , no mass, no scars Extremities: no cyanosis, no clubbing Skin: no rash, no lesions Neurologic/Psychiatric: alert, oriented x 3, responsive Lymphatic: no neck adenopathy, no groin adenopathy Musculoskeletal: normal muscle bulk Current Medications Medications (Trade) Dose Ordered Sig/Laura Route PRN Reason Start Time Stop Time Status Last Admin Dose Admin Acetaminophen (Tylenol) 650 mg Q4HR PRN ORAL Mild Pain/Temp > 100.5 04/28/18 21:45 05/28/18 21:44 Ascorbic Acid (Vitamin C) 500 mg DAILY ORAL 04/29/18 09:00 05/29/18 08:59 05/02/18 09:00 Atorvastatin Calcium (Lipitor) 20 mg BEDTIME ORAL 05/02/18 21:00 05/28/18 20:59 Baclofen (Lioresal) 10 mg BID ORAL 04/29/18 09:00 05/29/18 08:59 05/02/18 09:00 Dextrose/Sodium Chloride 1,000 ml @ 80 mls/hr [id number] IV 04/28/18 23:00 05/28/18 22:59 05/02/18 14:01 Docusate Sodium (Colace) 100 mg TWICE A DAY ORAL 04/29/18 09:00 05/29/18 08:59 05/02/18 09:00 Escitalopram Oxalate (Lexapro) 10 mg DAILY ORAL 05/01/18 14:03 05/31/18 14:02 05/02/18 09:00 Ferrous Sulfate (Feosol) 325 mg DAILY ORAL 04/29/18 09:00 05/29/18 08:59 05/02/18 09:00 Heparin Sodium (Porcine) (Heparin 5000 units/ml) 5,000 units EVERY 12 HOURS SUBQ 04/28/18 22:10 05/28/18 22:09 05/02/18 09:02 Iopamidol (Isovue-300 100ml) 100 ml NOW PRN INJ Radiology Procedure 04/28/18 18:00 Lactulose (Cephulac) 10 gm THREE TIMES A DAY ORAL 04/29/18 09:00 05/29/18 08:59 05/02/18 14:01 Lactulose (Cephulac) 30 gm TID ORAL 04/29/18 09:00 05/29/18 08:59 05/02/18 14:01 Losartan Potassium (Cozaar) 25 mg BEDTIME ORAL 04/28/18 22:30 05/28/18 22:29 05/01/18 20:44 Memantine (Namenda) 5 mg TWICE A DAY ORAL 04/29/18 09:00 05/29/18 08:59 05/02/18 09:00 Nystatin (Nystatin) 5 ml QID ORAL 04/29/18 18:00 05/06/18 17:59 05/02/18 14:01 Pantoprazole (Protonix) 40 mg DAILY IV 04/29/18 09:00 05/29/18 08:59 05/02/18 09:00 Polyethylene Glycol (Miralax) 17 gm BEDTIME ORAL 04/29/18 21:00 05/29/18 20:59 05/01/18 20:43 Carlos Bonilla M.D. May 02, 2018 16:47
[2018-05-02] MEDS: Losartan 25mg tab ORAL SCH (21:00)
[2018-05-02] MEDS: Miralax 17gm pkt ORAL SCH (21:05)
[2018-05-02] MEDS: Atorvastatin 20mg tab ORAL SCH (21:08)
[2018-05-03] VITALS (11 sets, daily range): BP systolic 103–150; BP diastolic 45–101
[2018-05-03] MEDS: D5NS 1,000 ML IV SCH ×2 (03:35→15:59)
[2018-05-03 08:20] LABS: BASOPHILS % (AUTO) 0.8 % (0.0-2.0); EOSINOPHILS % (AUTO) 1.1 % (0.0-3.0); HEMATOCRIT 31.2 % (42.0-52.0); HEMOGLOBIN 10.9 G/DL (14.2-18.0); LYMPHOCYTES % (AUTO) 20.5 % (20.0-45.0); MEAN CORPUSCULAR VOLUME 90 FL (80-99); MONOCYTES % (AUTO) 7.8 % (1.0-10.0); NEUTROPHILS % (AUTO) 69.8 % (45.0-75.0); PLATELET COUNT 223 K/UL (150-450); RED BLOOD COUNT 3.48 M/UL (4.70-6.10); WHITE BLOOD COUNT 9.3 K/UL (4.8-10.8)
[2018-05-03 08:43] LABS: INR 1.1 (0.9-1.1)
[2018-05-03] MEDS: Lactulose 10gm/15ml UDC ORAL SCH ×3 (08:43→17:02)
[2018-05-03] MEDS: Lactulose 20gm/30ml UDC ORAL SCH ×3 (08:43→17:02)
[2018-05-03] MEDS: Pantoprazole Inj IV SCH (08:43)
[2018-05-03] MEDS: Docusate 100mg cap ORAL SCH ×2 (08:43→17:02)
[2018-05-03] MEDS: Memantine 10mg tab ORAL SCH (08:44)
[2018-05-03] MEDS: Nystatin Susp 500,000 units/5ml ORAL SCH ×4 (08:44→20:40)
[2018-05-03] MEDS: Ascorbic Acid 500mg tab ORAL SCH (08:44)
[2018-05-03] MEDS: Heparin 5000 units/ml inj SUBQ SCH ×2 (08:45→20:41)
[2018-05-03 09:14] LABS: ANION GAP 5 mmol/L (5-15); BLOOD UREA NITROGEN 9 mg/dL (7-18); CALCIUM 8.6 MG/DL (8.5-10.1); CARBON DIOXIDE 29 MMOL/L (21-32); CHLORIDE 107 MMOL/L (98-107); CREATININE 0.8 MG/DL (0.55-1.30); POTASSIUM 3.8 MMOL/L (3.5-5.1); SODIUM 141 MMOL/L (136-145)
--- NOTE | 2018-05-03 10:50 | Pre-Procedure Note/Attestation ---
Pre-Procedure Note/Attestation Complete Prior to Procedure Planned Procedure: not applicable Procedure Narrative: egd Indications for Procedure Pre-Operative Diagnosis: dysphagia Attestation I attest that I discussed the nature of the procedure; its benefits; risks and complications; and alternatives (and the risks and benefits of such alternatives ), prior to the procedure, with the patient (or the patient's legal dairy supplies sales representative). I attest that, if there was a reasonable possibility of needing a blood transfusion, the patient (or the patient's legal dairy supplies sales representative) was given the [facility] standardized written summary, pursuant to the [place] Blood Safety Act ([place] Health and Safety Code # 1645, as amended). I attest that I re-evaluated the patient just prior to the surgery and that there has been no change in the patient's H&P, except as documented below: Alex Combs MD May 03, 2018 10:50
[2018-05-03] MEDS ORDERED: Propofol 200mg/20ml IV ONE (11:00)
[2018-05-03] MEDS ORDERED: NS 500ML IVPB ONE (11:10)
--- NOTE | 2018-05-03 11:17 | Anethesia Preoperative Eval ---
Anesthesia Pre-op PMH/ROS General Date of Evaluation: May 03, 2018 Time of Evaluation: 11:05 Anesthesiologist: Higinio Rowland. [employer] EXPEDITER ASA Score: ASA 3 Mallampati Score Class I : Soft palate, uvula, fauces, pillars visible Class II: Soft palate, uvula, fauces visible Class III: Soft palate, base of uvula visible Class IV: Only hard plate visible Mallampati Classification: Class II Surgeon: Lauryn Diagnosis: Failure to thrive, dehydration Surgical Procedure: EGD Social History: smoking Family History: no anesthesia problems Allergies: Coded Allergies: No Known Allergies (Unverified , 10/29/16) Medications: see eMAR Past Medical History Cardiovascular: Reports: HTN, other - hyperlipidemia Pulmonary: Reports: asthma, COPD Gastrointestinal/Genitourinary: Reports: GERD, other - Thrush, dehydration, failure to thrive Neurologic/Psychiatric: Reports: dementia Other: other Anesthesia Pre-op Phys. Exam Physician Exam Last Vital Signs Date Time Temp Pulse Resp B/P (MAP) Pulse Ox O2 Delivery O2 Flow Rate FiO2 05/03/18 09:00 Room Air 05/03/18 08:00 97.0 69 18 150/84 (106) 97 97.0 Constitutional: NAD Neurologic: other - confused, noncooperative Cardiovascular: RRR Respiratory: CTA Gastrointestinal: S/NT/ND Airway Exam Mallampati Score: Class II MO: full ROM: full Teeth: missing Dentures: upper, lower Anesthesia Pre-op A/P Labs Hematology Test 05/03/18 07:35 White Blood Count 9.3 K/UL (4.8-10.8) Red Blood Count 3.48 M/UL (4.70-6.10) L Hemoglobin 10.9 G/DL (14.2-18.0) L Hematocrit 31.2 % (42.0-52.0) L Mean Corpuscular Volume 90 FL (80-99) Mean Corpuscular Hemoglobin 31.3 PG (27.0-31.0) H Mean Corpuscular Hemoglobin Concent 34.9 G/DL (32.0-36.0) Red Cell Distribution Width 11.0 % (11.6-14.8) L Platelet Count 223 K/UL (150-450) Mean Platelet Volume 4.8 FL (6.5-10.1) L Neutrophils (%) (Auto) 69.8 % (45.0-75.0) Lymphocytes (%) (Auto) 20.5 % (20.0-45.0) Monocytes (%) (Auto) 7.8 % (1.0-10.0) Eosinophils (%) (Auto) 1.1 % (0.0-3.0) Basophils (%) (Auto) 0.8 % (0.0-2.0) Coagulation Test 05/03/18 07:35 Prothrombin Time 11.5 SEC (9.30-11.50) Prothromb Time International Ratio 1.1 (0.9-1.1) Activated Partial Thromboplast Time 29 SEC (23-33) Chemistry Test 05/03/18 07:35 Sodium Level 141 MMOL/L (136-145) Potassium Level 3.8 MMOL/L (3.5-5.1) Chloride Level 107 MMOL/L (98-107) Carbon Dioxide Level 29 MMOL/L (21-32) Anion Gap 5 mmol/L (5-15) Blood Urea Nitrogen 9 mg/dL (7-18) Creatinine 0.8 MG/DL (0.55-1.30) Estimat Glomerular Filtration Rate mL/min (>60) Glucose Level 96 MG/DL (74-106) Calcium Level 8.6 MG/DL (8.5-10.1) Studies Pre-op Studies: EKG - 04/28/18: RBB, left fascicular block Risk Assessment & Plan Status Change Before Surgery: Rubina Cole CRNA May 03, 2018 11:17
--- NOTE | 2018-05-03 11:32 | Endoscopy Procedure Note ---
Endoscopy Procedure Note General Indication for Procedure: abd pain Procedures Performed: EGD Operative Findings/Diagnosis: gastritis Specimen: yes Pt Tolerated Procedure Well: Yes Estimated Blood Loss: none Anesthesia Anesthesiologist: see chart Anesthesia: MAC Inserted Devices Implant(s) used?: No GI Core Measures 50 yrs or older w/o bx or poly: Not Applicable 10yrs. F/U not recommended: Not Applicable Alex Combs MD May 03, 2018 11:32
--- NOTE | 2018-05-03 11:45 | Immediate Post-Op Evaluation ---
Immediate Post-Op Evalulation Immediate Post-Op Evalulation Procedure: EGD Date of Evaluation: May 03, 2018 Time of Evaluation: 11:37 IV Fluids: 0.9 NS 100ml Blood Pressure Systolic: 121 Blood Pressure Diastolic: 71 Pulse Rate: 68 Respiratory Rate: 21 O2 Sat by Pulse Oximetry: 100 Temperature (Fahrenheit): 98.2 Pain Score (1-10): 0 Nausea: No Vomiting: No Complications none Patient Status: reacts Hydration Status: adequate Rubina Rowland CRNA May 03, 2018 11:45
--- NOTE | 2018-05-03 11:54 | General Progress Note ---
Assessment/Plan Assessment/Plan [place] [facility] [place] [facility] failure to thrive Dementia the pt lacks capacity to make decisions/call for consent cont lexapro the pt was provided ro/st Subjective Neurologic/Psychiatric: Reports: anxiety Allergies: Coded Allergies: No Known Allergies (Unverified , 10/29/16) Subjective the pt was npo had a procedure not eating adequately the pt not able to discuss rationally Objective Last 24 Hour Vital Signs Date Time Temp Pulse Resp B/P (MAP) Pulse Ox O2 Delivery O2 Flow Rate FiO2 05/03/18 11:45 208.8 68 21 100 05/03/18 11:40 64 18 107/77 98 Room Air 05/03/18 11:35 61 21 105/64 100 Nasal Cannula 3 05/03/18 11:32 98.2 68 21 121/71 100 Nasal Cannula 3 98.2 05/03/18 09:00 Room Air 05/03/18 08:00 97.0 69 18 150/84 (106) 97 97.0 05/03/18 04:00 98.2 63 18 128/72 (90) 97 98.2 05/03/18 00:00 98.1 60 17 104/73 (83) 97 98.1 05/02/18 21:00 Room Air 05/02/18 21:00 100/71 05/02/18 20:00 98.0 63 18 100/71 (81) 97 98.0 05/02/18 16:08 98.4 64 18 130/82 (98) 98 98.4 Intake and Output 05/02/18 05/03/18 19:00 07:00 Intake Total 1120 ml Balance 1120 ml Intake Oral 240 ml IV Total 880 ml # Voids 8 5 # Bowel Movements 1 Laboratory Tests 05/03/18 07:35: White Blood Count 9.3, Red Blood Count 3.48L, Hemoglobin 10.9L, Hematocrit 31.2L , Mean Corpuscular Volume 90, Mean Corpuscular Hemoglobin 31.3H, Mean Corpuscular Hemoglobin Concent 34.9, Red Cell Distribution Width 11.0L, Platelet Count 223, Mean Platelet Volume 4.8L, Neutrophils (%) (Auto) 69.8, Lymphocytes (%) (Auto) 20.5, Monocytes (%) (Auto) 7.8, Eosinophils (%) (Auto) 1.1, Basophils (%) (Auto) 0.8, Prothrombin Time 11.5, Prothromb Time International Ratio 1.1, Activated Partial Thromboplast Time 29, Sodium Level 141, Potassium Level 3.8, Chloride Level 107, Carbon Dioxide Level 29, Anion Gap 5, Blood Urea Nitrogen 9, Creatinine 0.8, Estimat Glomerular Filtration Rate , Glucose Level 96, Calcium Level 8.6 Height (Feet): 6 Height (Inches): 6.00 Weight (Pounds): 125 General Appearance: WD/WN, no apparent distress, alert, confused Vanessa Booker MD May 03, 2018 11:54
--- NOTE | 2018-05-03 16:16 | Infectious Diseases Prog Note ---
Assessment/Plan Problems: (1) Thrush, oral Assessment & Plan: suspect ck related , with possible ck esophagitis , screening for HIV is negative , recommend EGD to rule out ck esophagitis or organic reason for his dysphagia . continue oral nystatin (2) Failure to thrive Assessment & Plan: suspect poor oral intake , HIV is negative , and HCV, HBV screening is pending , recommend dietitian consult . may need tube feeding (3) Dysphagia Assessment & Plan: with esophagitis, may need EGD to evaluate for ck esophagitis or tumor . may need tube feeding due to poor oral intake Subjective ROS Limited/Unobtainable: Yes Allergies: Coded Allergies: No Known Allergies (Unverified , 10/29/16) Subjective he was resting in bed quiet, and comfortable, not agitated, afebrile , NAD Objective Vital Signs Last 24 Hour Vital Signs Date Time Temp Pulse Resp B/P (MAP) Pulse Ox O2 Delivery O2 Flow Rate FiO2 05/03/18 16:00 97.4 75 20 103/45 (64) 97 97.4 05/03/18 12:00 97.8 61 18 135/79 (97) 96 97.8 05/03/18 11:50 98 64 16 116/73 100 Room Air 98.0 05/03/18 11:45 208.8 68 21 100 05/03/18 11:40 64 18 107/77 98 Room Air 05/03/18 11:35 61 21 105/64 100 Nasal Cannula 3 05/03/18 11:32 98.2 68 21 121/71 100 Nasal Cannula 3 98.2 05/03/18 09:00 Room Air 05/03/18 08:00 97.0 69 18 150/84 (106) 97 97.0 05/03/18 04:00 98.2 63 18 128/72 (90) 97 98.2 05/03/18 00:00 98.1 60 17 104/73 (83) 97 98.1 05/02/18 21:00 Room Air 05/02/18 21:00 100/71 05/02/18 20:00 98.0 63 18 100/71 (81) 97 98.0 Height (Feet): 6 Height (Inches): 6.00 Weight (Pounds): 125 General Appearance: WD/WN, no acute distress, cachetic HEENT: normocephalic, atraumatic, anicteric, mucous membranes moist, PERRL Respiratory/Chest: chest wall non-tender, lungs clear, normal breath sounds, no respiratory distress, no accessory muscle use Cardiovascular: normal peripheral pulses, normal rate, regular rhythm, no gallop/murmur, no JVD Abdomen: normal bowel sounds, soft, non tender, no organomegaly, non distended , no mass, no scars Genitourinary: normal external genitalia Extremities: no cyanosis, no clubbing Skin: no rash, no lesions, no ulcers Neurologic/Psychiatric: alert Lymphatic: no neck adenopathy, no groin adenopathy Musculoskeletal: normal muscle bulk, no effusion Laboratory Tests Test 05/03/18 07:35 White Blood Count 9.3 K/UL (4.8-10.8) Red Blood Count 3.48 M/UL (4.70-6.10) L Hemoglobin 10.9 G/DL (14.2-18.0) L Hematocrit 31.2 % (42.0-52.0) L Mean Corpuscular Volume 90 FL (80-99) Mean Corpuscular Hemoglobin 31.3 PG (27.0-31.0) H Mean Corpuscular Hemoglobin Concent 34.9 G/DL (32.0-36.0) Red Cell Distribution Width 11.0 % (11.6-14.8) L Platelet Count 223 K/UL (150-450) Mean Platelet Volume 4.8 FL (6.5-10.1) L Neutrophils (%) (Auto) 69.8 % (45.0-75.0) Lymphocytes (%) (Auto) 20.5 % (20.0-45.0) Monocytes (%) (Auto) 7.8 % (1.0-10.0) Eosinophils (%) (Auto) 1.1 % (0.0-3.0) Basophils (%) (Auto) 0.8 % (0.0-2.0) Prothrombin Time 11.5 SEC (9.30-11.50) Prothromb Time International Ratio 1.1 (0.9-1.1) Activated Partial Thromboplast Time 29 SEC (23-33) Sodium Level 141 MMOL/L (136-145) Potassium Level 3.8 MMOL/L (3.5-5.1) Chloride Level 107 MMOL/L (98-107) Carbon Dioxide Level 29 MMOL/L (21-32) Anion Gap 5 mmol/L (5-15) Blood Urea Nitrogen 9 mg/dL (7-18) Creatinine 0.8 MG/DL (0.55-1.30) Estimat Glomerular Filtration Rate mL/min (>60) Glucose Level 96 MG/DL (74-106) Calcium Level 8.6 MG/DL (8.5-10.1) Current Medications Medications (Trade) Dose Ordered Sig/Laura Route PRN Reason Start Time Stop Time Status Last Admin Dose Admin Acetaminophen (Tylenol) 650 mg Q4HR PRN ORAL Mild Pain/Temp > 100.5 04/28/18 21:45 05/28/18 21:44 Ascorbic Acid (Vitamin C) 500 mg DAILY ORAL 04/29/18 09:00 05/29/18 08:59 05/02/18 09:00 Atorvastatin Calcium (Lipitor) 20 mg BEDTIME ORAL 05/02/18 21:00 05/28/18 20:59 05/02/18 21:08 Baclofen (Lioresal) 10 mg BID ORAL 04/29/18 09:00 05/29/18 08:59 05/02/18 17:34 Cefoxitin Sodium 1 gm/Dextrose 55 ml @ 110 mls/hr ONCE ONCE IV 05/04/18 08:00 05/04/18 08:29 Dextrose/Sodium Chloride 1,000 ml @ 80 mls/hr [id number] IV 04/28/18 23:00 05/28/18 22:59 05/03/18 15:59 Docusate Sodium (Colace) 100 mg TWICE A DAY ORAL 04/29/18 09:00 05/29/18 08:59 05/02/18 17:34 Escitalopram Oxalate (Lexapro) 10 mg DAILY ORAL 05/01/18 14:03 05/31/18 14:02 05/02/18 09:00 Ferrous Sulfate (Feosol) 325 mg DAILY ORAL 04/29/18 09:00 05/29/18 08:59 05/02/18 09:00 Heparin Sodium (Porcine) (Heparin 5000 units/ml) 5,000 units EVERY 12 HOURS SUBQ 04/28/18 22:10 05/28/18 22:09 05/02/18 21:10 Iopamidol (Isovue-300 100ml) 100 ml NOW PRN INJ Radiology Procedure 04/28/18 18:00 Lactulose (Cephulac) 10 gm THREE TIMES A DAY ORAL 04/29/18 09:00 05/29/18 08:59 05/03/18 14:40 Lactulose (Cephulac) 30 gm TID ORAL 04/29/18 09:00 05/29/18 08:59 05/03/18 14:41 Losartan Potassium (Cozaar) 25 mg BEDTIME ORAL 04/28/18 22:30 05/28/18 22:29 05/01/18 20:44 Nystatin (Nystatin) 5 ml QID ORAL 04/29/18 18:00 05/06/18 17:59 05/03/18 14:40 Pantoprazole (Protonix) 40 mg DAILY IV 04/29/18 09:00 05/29/18 08:59 05/02/18 09:00 Polyethylene Glycol (Miralax) 17 gm BEDTIME ORAL 04/29/18 21:00 05/29/18 20:59 05/02/18 21:05 Carlos Bonilla M.D. May 03, 2018 16:16
--- NOTE | 2018-05-03 16:17 | Procedure Note ---
DATE OF PROCEDURE: 05/03/2018 SURGEON: Alex Combs M.D. ANESTHESIOLOGIST: Kashif OBRIEN.. PROCEDURE: Upper endoscopy with biopsy. ANESTHESIA: Per Kashif OBRIEN. INSTRUMENT: Olympus adult flexible upper endoscope. INDICATION: Abdominal pain. Rule out Carly esophagitis. The procedure, risks, benefits, and possible consequences, including hemorrhage, aspiration, perforation and infection, and alternative treatments, were explained to the patient/legal guardian by Dr. Alex Combs and the patient/legal guardian understood and accepted these risks. DESCRIPTION OF PROCEDURE: After informed consent was obtained and the patient was adequately sedated, Olympus upper endoscope was advanced from the mouth into the second portion of the duodenum and retroflexion was performed in the stomach. The patient had no sign or symptoms of Carly esophagitis. In the stomach, there was atrophic gastritis. Random biopsy from antrum was obtained to rule out H. pylori infection. The patient tolerated the procedure very well without any complications. SUMMARY OF FINDINGS: Gastritis, otherwise normal upper endoscopic examination. RECOMMENDATIONS: Follow up biopsy results and treat accordingly. Alex Combs M.D. DR: [place] JOB#: [id number] CC:
[2018-05-03] MEDS: Miralax 17gm pkt ORAL SCH (20:39)
[2018-05-03] MEDS: Losartan 25mg tab ORAL SCH (20:40)
[2018-05-03] MEDS: Atorvastatin 20mg tab ORAL SCH (20:40)
[2018-05-04] VITALS (9 sets, daily range): BP systolic 108–134; BP diastolic 72–89
[2018-05-04] MEDS: D5NS 1,000 ML IV SCH (04:26)
[2018-05-04 07:21] LABS: BASOPHILS % (AUTO) 1.1 % (0.0-2.0); HEMATOCRIT 32.1 % (42.0-52.0); LYMPHOCYTES % (AUTO) 31.2 % (20.0-45.0); MEAN CORPUSCULAR VOLUME 89 FL (80-99); MONOCYTES % (AUTO) 10.8 % (1.0-10.0); NEUTROPHILS % (AUTO) 54.8 % (45.0-75.0); PLATELET COUNT 219 K/UL (150-450); RED BLOOD COUNT 3.59 M/UL (4.70-6.10); RED CELL DISTRIBUTION WIDTH 10.9 % (11.6-14.8); WHITE BLOOD COUNT 6.7 K/UL (4.8-10.8)
[2018-05-04 07:31] LABS: ANION GAP 6 mmol/L (5-15); BLOOD UREA NITROGEN 7 mg/dL (7-18); CALCIUM 8.5 MG/DL (8.5-10.1); CARBON DIOXIDE 27 MMOL/L (21-32); CHLORIDE 108 MMOL/L (98-107); CREATININE 0.8 MG/DL (0.55-1.30); POTASSIUM 3.8 MMOL/L (3.5-5.1); SODIUM 141 MMOL/L (136-145)
[2018-05-04 07:32] LABS: INR 1.1 (0.9-1.1)
[2018-05-04] MEDS ORDERED: cefOXitin Sod 1 GM in D5W 55 ML IV ONE (08:00)
[2018-05-04] MEDS: Docusate 100mg cap ORAL SCH (08:16)
[2018-05-04] MEDS: Pantoprazole Inj IV SCH (08:16)
[2018-05-04] MEDS: Lactulose 20gm/30ml UDC ORAL SCH ×2 (08:16→13:00)
[2018-05-04] MEDS: Lactulose 10gm/15ml UDC ORAL SCH ×2 (08:16→13:00)
[2018-05-04] MEDS: Nystatin Susp 500,000 units/5ml ORAL SCH ×2 (08:17→13:00)
[2018-05-04] MEDS: Heparin 5000 units/ml inj SUBQ SCH (08:17)
[2018-05-04] MEDS: Ascorbic Acid 500mg tab ORAL SCH (08:17)
--- NOTE | 2018-05-04 10:14 | Anethesia Preoperative Eval ---
Anesthesia Pre-op PMH/ROS General Date of Evaluation: May 04, 2018 Time of Evaluation: 10:06 Anesthesiologist: Higinio Rowland CRNA ASA Score: ASA 3 Mallampati Score Class I : Soft palate, uvula, fauces, pillars visible Class II: Soft palate, uvula, fauces visible Class III: Soft palate, base of uvula visible Class IV: Only hard plate visible Mallampati Classification: Class II Surgeon: Lauryn Diagnosis: Failure to thrive, dehydration Surgical Procedure: EGD with PEG placement Anesthesia History: none - no history of prior anesthetic complications Family History: no anesthesia problems Allergies: Coded Allergies: No Known Allergies (Unverified , 10/29/16) Medications: see eMAR Past Medical History Cardiovascular: Reports: HTN, other - hyperlipidemia Pulmonary: Reports: asthma, COPD Gastrointestinal/Genitourinary: Reports: GERD, other - admit 04/28/18 for dehydration and FTT Neurologic/Psychiatric: Reports: dementia - encephalopathy Hematology/Immune: Reports: anemia Other: other - emaciated PMH Narrative: 77 yo male admitted 04/28/18 for dehydration and FTT PSxH Narrative: MAC Anesthesia Pre-op Phys. Exam Physician Exam Last Vital Signs Date Time Temp Pulse Resp B/P (MAP) Pulse Ox O2 Delivery O2 Flow Rate FiO2 05/04/18 08:30 Room Air 05/04/18 08:00 98.4 65 19 131/80 (97) 98 98.4 05/03/18 11:35 3 Constitutional: NAD Neurologic: other - disoriented, sleeping comfortably on RA Cardiovascular: RRR Respiratory: CTA Gastrointestinal: S/NT/ND Airway Exam Mallampati Score: Class II MO: full ROM: limited Teeth: missing Dentures: upper, lower Anesthesia Pre-op A/P Labs Hematology Test 05/04/18 07:00 White Blood Count 6.7 K/UL (4.8-10.8) Red Blood Count 3.59 M/UL (4.70-6.10) L Hemoglobin 11.0 G/DL (14.2-18.0) L Hematocrit 32.1 % (42.0-52.0) L Mean Corpuscular Volume 89 FL (80-99) Mean Corpuscular Hemoglobin 30.6 PG (27.0-31.0) Mean Corpuscular Hemoglobin Concent 34.2 G/DL (32.0-36.0) Red Cell Distribution Width 10.9 % (11.6-14.8) L Platelet Count 219 K/UL (150-450) Mean Platelet Volume 5.2 FL (6.5-10.1) L Neutrophils (%) (Auto) 54.8 % (45.0-75.0) Lymphocytes (%) (Auto) 31.2 % (20.0-45.0) Monocytes (%) (Auto) 10.8 % (1.0-10.0) H Eosinophils (%) (Auto) 2.0 % (0.0-3.0) Basophils (%) (Auto) 1.1 % (0.0-2.0) Coagulation Test 05/04/18 07:00 Prothrombin Time 11.8 SEC (9.30-11.50) H Prothromb Time International Ratio 1.1 (0.9-1.1) Activated Partial Thromboplast Time 27 SEC (23-33) Chemistry Test 05/04/18 07:00 Sodium Level 141 MMOL/L (136-145) Potassium Level 3.8 MMOL/L (3.5-5.1) Chloride Level 108 MMOL/L (98-107) H Carbon Dioxide Level 27 MMOL/L (21-32) Anion Gap 6 mmol/L (5-15) Blood Urea Nitrogen 7 mg/dL (7-18) Creatinine 0.8 MG/DL (0.55-1.30) Estimat Glomerular Filtration Rate mL/min (>60) Glucose Level 94 MG/DL (74-106) Calcium Level 8.5 MG/DL (8.5-10.1) Studies Pre-op Studies: EKG - 8.17.18: NSR with RBBB Risk Assessment & Plan Assessment: 77 year old male, requires anesthesia for PEG placement Plan: MAC Status Change Before Surgery: No Pre-Antibiotics Drug: Cefoxitin Given Within 1 Hr of Incision: Yes Time Given: 12:15 Rubina Rowland CRNA May 04, 2018 10:14
--- NOTE | 2018-05-04 10:18 | 48 Hour Post Anesthesia Eval ---
Post Anesthesia Evaluation Procedure: EGD Date of Evaluation: May 04, 2018 Time of Evaluation: 10:14 Blood Pressure Systolic: 131 0: 80 Pulse Rate: 65 Respiratory Rate: 19 Temperature (Fahrenheit): 98.4 O2 Sat by Pulse Oximetry: 98 Airway: patent Nausea: No Vomiting: No Pain Intensity: 0 Hydration Status: adequate Cardiopulmonary Status: stable Mental Status/LOC: patient returned to baseline Follow-up Care/Observations: plan for PEG placement under MAC later today Post-Anesthesia Complications: no overnight events; no anesthetic complications noted; back to baseline Follow-up care needed: N/A - remains inpatient Rubina Rowland CRNA May 04, 2018 10:18
--- NOTE | 2018-05-04 11:45 | General Progress Note ---
Assessment/Plan Assessment/Plan S: not verbal. O: limited evaluation . PHYSICAL EXAMINATION: HEAD AND NECK: Positive for the left-sided periorbital edema and swelling. NEUROLOGIC: The patient is awake, alert, and oriented x1. The patient is noncommunicative verbally and grossly demented - at baseline. MUSCULOSKELETAL: No gross focal motor deficit. PSYCHIATRIC: Mood and affect are flat. ABDOMEN: Soft. No organomegaly. IMAGING: Abd Ct reviewed Meds: reviewed and reconciled ASSESSMENT AND PLAN: 1. Acute on chronic encephalopathy. 2. Head trauma, status post fall. 3. Sinus bradycardia. 4. Hyperlipidemia. 5. Psychiatric disorder. 6. Dementia. 7. Gastrointestinal and deep vein thrombosis prophylaxis. 8. Gastritis 9. Fecal impaction PLAN OF CARE: patient remains high risk for Aspiration with PO feed Pending Swallow eval , likely will proceed with PEG after then. S/P EGD. Subjective Allergies: Coded Allergies: No Known Allergies (Unverified , 10/29/16) Objective Last 24 Hour Vital Signs Date Time Temp Pulse Resp B/P (MAP) Pulse Ox O2 Delivery O2 Flow Rate FiO2 05/04/18 10:18 209.1 65 19 98 05/04/18 08:30 Room Air 05/04/18 08:00 98.4 65 19 131/80 (97) 98 98.4 05/04/18 04:00 98.1 60 20 108/81 (90) 100 98.1 05/03/18 23:57 97.2 58 17 122/101 (108) 100 97.2 05/03/18 21:00 Room Air 05/03/18 20:40 103/45 05/03/18 20:00 98.3 61 20 128/70 (89) 98 98.3 05/03/18 16:00 97.4 75 20 103/45 (64) 97 97.4 05/03/18 12:00 97.8 61 18 135/79 (97) 96 97.8 05/03/18 11:50 98 64 16 116/73 100 Room Air 98.0 05/03/18 11:45 208.8 68 21 100 Intake and Output 05/03/18 05/04/18 19:00 07:00 Intake Total 1910 ml 800 ml Output Total 775 ml 800 ml Balance 1135 ml 0 ml Intake Oral 800 ml IV Total 1110 ml 800 ml Output Urine Total 775 ml 800 ml Estimated Blood Loss 0 ml Laboratory Tests 05/04/18 07:00: White Blood Count 6.7, Red Blood Count 3.59L, Hemoglobin 11.0L, Hematocrit 32.1L , Mean Corpuscular Volume 89, Mean Corpuscular Hemoglobin 30.6, Mean Corpuscular Hemoglobin Concent 34.2, Red Cell Distribution Width 10.9L, Platelet Count 219, Mean Platelet Volume 5.2L, Neutrophils (%) (Auto) 54.8, Lymphocytes (%) (Auto) 31.2, Monocytes (%) (Auto) 10.8H, Eosinophils (%) (Auto) 2.0, Basophils (%) (Auto) 1.1, Prothrombin Time 11.8H, Prothromb Time International Ratio 1.1, Activated Partial Thromboplast Time 27, Sodium Level 141, Potassium Level 3.8, Chloride Level 108H, Carbon Dioxide Level 27, Anion Gap 6, Blood Urea Nitrogen 7, Creatinine 0.8, Estimat Glomerular Filtration Rate , Glucose Level 94, Calcium Level 8.5 Height (Feet): 6 Height (Inches): 6.00 Weight (Pounds): 125 Daisy Bronson MD May 04, 2018 11:45
[2018-05-04] MEDS ORDERED: fentaNYL 100 mcg/2 mL IV ONE (11:57)
[2018-05-04] MEDS ORDERED: Propofol 200mg/20ml IV ONE (12:00)
[2018-05-04] MEDS ORDERED: cefOXitin 1gm Inj ONE ×2 (12:00→12:15)
[2018-05-04] MEDS ORDERED: Lidocaine 1% MPF 10mg/ml 5ml ONE (12:00)
[2018-05-04] MEDS ORDERED: NS 500ML IVPB ONE (12:05)
--- NOTE | 2018-05-04 12:15 | Pre-Procedure Note/Attestation ---
Pre-Procedure Note/Attestation Complete Prior to Procedure Planned Procedure: not applicable Procedure Narrative: egd/peg Indications for Procedure Pre-Operative Diagnosis: dysphagia Attestation I attest that I discussed the nature of the procedure; its benefits; risks and complications; and alternatives (and the risks and benefits of such alternatives ), prior to the procedure, with the patient (or the patient's legal claims representative). I attest that, if there was a reasonable possibility of needing a blood transfusion, the patient (or the patient's legal claims representative) was given the [facility] standardized written summary, pursuant to the Gabriele Crispin Blood Safety Act ([place] Health and Safety Code # 1645, as amended). I attest that I re-evaluated the patient just prior to the surgery and that there has been no change in the patient's H&P, except as documented below: Alex Combs MD May 04, 2018 12:15
--- NOTE | 2018-05-04 12:28 | Endoscopy Procedure Note ---
Endoscopy Procedure Note General Indication for Procedure: FTT Procedures Performed: EGD, PEG Operative Findings/Diagnosis: same Specimen: none Pt Tolerated Procedure Well: Yes Estimated Blood Loss: none Anesthesia Anesthesiologist: see chart Anesthesia: MAC Inserted Devices Implant(s) used?: No GI Core Measures 50 yrs or older w/o bx or poly: Not Applicable 10yrs. F/U not recommended: Not Applicable Alex Combs MD May 04, 2018 12:28
--- NOTE | 2018-05-04 12:46 | Immediate Post-Op Evaluation ---
Immediate Post-Op Evalulation Immediate Post-Op Evalulation Procedure: EGD with PEG placement Date of Evaluation: May 04, 2018 Time of Evaluation: 12:36 IV Fluids: 0.9% NS 200 ml Blood Pressure Systolic: 115 Blood Pressure Diastolic: 72 Pulse Rate: 63 Respiratory Rate: 16 O2 Sat by Pulse Oximetry: 98 Temperature (Fahrenheit): 97.9 Pain Score (1-10): 0 Nausea: No Vomiting: No Complications none Patient Status: reacts, patent Hydration Status: adequate Drug: cefoxitin Given Within 1 Hr of Incision: Yes Time Given: 12:15 Rubina Rowland CRNA May 04, 2018 12:46
--- NOTE | 2018-05-04 13:42 | GI Progress Note ---
Assessment/Plan Problems: (1) Thrush, oral ICD Codes: B37.0 - Candidal stomatitis SNOMED: 10614125 (2) Failure to thrive SNOMED: 60902080 Qualifiers: Qualified Codes: R62.7 - Adult failure to thrive (3) Dehydration ICD Codes: E86.0 - Dehydration SNOMED: 75512380, 319367799 (4) Dysphagia ICD Codes: R13.10 - Dysphagia, unspecified SNOMED: 83318109, 751786620 Qualifiers: Qualified Codes: R13.10 - Dysphagia, unspecified (5) Constipation ICD Codes: K59.00 - Constipation, unspecified SNOMED: 33619400, 691634327 Qualifiers: Qualified Codes: K59.00 - Constipation, unspecified (6) Encounter for generalized patient complaints ICD Codes: Z00.8 - Encounter for other general examination SNOMED: 674079919 Assessment/Plan Assessment/Plan 1. Constipation/stool impaction. 2. Failure to thrive. 3. Distal esophageal wall thickening. 4. Gallstones. 5. Anemia, normocytic. 6. Coronary artery disease. 7. Dementia. s/p PEG Recommendations okay for DC per GI standpoint The patient was seen and examined at bedside and all new and available data was reviewed in the patients chart. I agree with the above findings, impression and plan. (Patient seen earlier today. Signature stamp does not reflect patient encounter time.). - Alex Combs MD Subjective Subjective limited Objective Last 24 Hour Vital Signs Date Time Temp Pulse Resp B/P (MAP) Pulse Ox O2 Delivery O2 Flow Rate FiO2 05/04/18 12:46 208.2 63 16 98 05/04/18 12:43 80 18 122/82 98 Nasal Cannula 3 05/04/18 12:38 63 15 110/86 98 Nasal Cannula 3 05/04/18 12:33 97.9 63 16 115/72 98 Nasal Cannula 3 97.9 05/04/18 12:00 98.7 77 20 134/82 (99) 100 98.7 05/04/18 10:18 209.1 65 19 98 05/04/18 08:30 Room Air 05/04/18 08:00 98.4 65 19 131/80 (97) 98 98.4 05/04/18 04:00 98.1 60 20 108/81 (90) 100 98.1 05/03/18 23:57 97.2 58 17 122/101 (108) 100 97.2 05/03/18 21:00 Room Air 05/03/18 20:40 103/45 05/03/18 20:00 98.3 61 20 128/70 (89) 98 98.3 05/03/18 16:00 97.4 75 20 103/45 (64) 97 97.4 Intake and Output 05/03/18 05/04/18 19:00 07:00 Intake Total 1910 ml 800 ml Output Total 775 ml 800 ml Balance 1135 ml 0 ml Intake Oral 800 ml IV Total 1110 ml 800 ml Output Urine Total 775 ml 800 ml Estimated Blood Loss 0 ml Laboratory Tests Test 05/04/18 07:00 White Blood Count 6.7 K/UL (4.8-10.8) Red Blood Count 3.59 M/UL (4.70-6.10) L Hemoglobin 11.0 G/DL (14.2-18.0) L Hematocrit 32.1 % (42.0-52.0) L Mean Corpuscular Volume 89 FL (80-99) Mean Corpuscular Hemoglobin 30.6 PG (27.0-31.0) Mean Corpuscular Hemoglobin Concent 34.2 G/DL (32.0-36.0) Red Cell Distribution Width 10.9 % (11.6-14.8) L Platelet Count 219 K/UL (150-450) Mean Platelet Volume 5.2 FL (6.5-10.1) L Neutrophils (%) (Auto) 54.8 % (45.0-75.0) Lymphocytes (%) (Auto) 31.2 % (20.0-45.0) Monocytes (%) (Auto) 10.8 % (1.0-10.0) H Eosinophils (%) (Auto) 2.0 % (0.0-3.0) Basophils (%) (Auto) 1.1 % (0.0-2.0) Prothrombin Time 11.8 SEC (9.30-11.50) H Prothromb Time International Ratio 1.1 (0.9-1.1) Activated Partial Thromboplast Time 27 SEC (23-33) Sodium Level 141 MMOL/L (136-145) Potassium Level 3.8 MMOL/L (3.5-5.1) Chloride Level 108 MMOL/L (98-107) H Carbon Dioxide Level 27 MMOL/L (21-32) Anion Gap 6 mmol/L (5-15) Blood Urea Nitrogen 7 mg/dL (7-18) Creatinine 0.8 MG/DL (0.55-1.30) Estimat Glomerular Filtration Rate mL/min (>60) Glucose Level 94 MG/DL (74-106) Calcium Level 8.5 MG/DL (8.5-10.1) Height (Feet): 6 Height (Inches): 6.00 Weight (Pounds): 125 Tyron Correa NP May 04, 2018 13:42
[2018-05-04] MEDS ORDERED: NYSTATIN100000 UN1 ORAL ×2 (14:25→14:29)
--- NOTE | 2018-05-04 16:08 | Infectious Diseases Prog Note ---
Assessment/Plan Problems: (1) Thrush, oral Assessment & Plan: suspect ck related , with no evidence of ck esophagitis , screening for HIV is negative , EGD ruled out ck esophagitis for his dysphagia . continue oral nystatin for one week (2) Failure to thrive Assessment & Plan: suspect poor oral intake , HIV is negative , and HCV, HBV screening is negative , recommend dietitian consult . had tube feeding placed (3) Dysphagia Assessment & Plan: S/P EGD with no evidence of ck esophagitis or tumor . had tube feeding placed due to poor oral intake Subjective ROS Limited/Unobtainable: Yes Allergies: Coded Allergies: No Known Allergies (Unverified , 10/29/16) Subjective he just had PEG tube placed by GI, was resting in bed quiet, and comfortable, not agitated, afebrile , NAD Objective Vital Signs Last 24 Hour Vital Signs Date Time Temp Pulse Resp B/P (MAP) Pulse Ox O2 Delivery O2 Flow Rate FiO2 05/04/18 13:10 98.0 88 18 124/89 98 Nasal Cannula 3 98.0 05/04/18 12:55 78 16 128/85 98 Nasal Cannula 3 05/04/18 12:46 208.2 63 16 98 05/04/18 12:43 80 18 122/82 98 Nasal Cannula 3 05/04/18 12:38 63 15 110/86 98 Nasal Cannula 3 05/04/18 12:33 97.9 63 16 115/72 98 Nasal Cannula 3 97.9 05/04/18 12:00 98.7 77 20 134/82 (99) 100 98.7 05/04/18 10:18 209.1 65 19 98 05/04/18 08:30 Room Air 05/04/18 08:00 98.4 65 19 131/80 (97) 98 98.4 05/04/18 04:00 98.1 60 20 108/81 (90) 100 98.1 05/03/18 23:57 97.2 58 17 122/101 (108) 100 97.2 05/03/18 21:00 Room Air 05/03/18 20:40 103/45 05/03/18 20:00 98.3 61 20 128/70 (89) 98 98.3 Height (Feet): 6 Height (Inches): 6.00 Weight (Pounds): 125 General Appearance: WD/WN, no acute distress, cachetic HEENT: normocephalic, atraumatic, anicteric, mucous membranes moist, PERRL Respiratory/Chest: chest wall non-tender, lungs clear, normal breath sounds, no respiratory distress, no accessory muscle use Cardiovascular: normal peripheral pulses, normal rate, regular rhythm, no gallop/murmur, no JVD Abdomen: no organomegaly, non distended, no mass, no scars, hypoactive bowel sounds, tender, other - PEG tube site covered by bandage and dressings and binder Extremities: no cyanosis, no clubbing Skin: no rash, no lesions, no ulcers Neurologic/Psychiatric: alert, responsive Lymphatic: no neck adenopathy, no groin adenopathy Musculoskeletal: normal muscle bulk, no effusion Laboratory Tests Test 05/04/18 07:00 White Blood Count 6.7 K/UL (4.8-10.8) Red Blood Count 3.59 M/UL (4.70-6.10) L Hemoglobin 11.0 G/DL (14.2-18.0) L Hematocrit 32.1 % (42.0-52.0) L Mean Corpuscular Volume 89 FL (80-99) Mean Corpuscular Hemoglobin 30.6 PG (27.0-31.0) Mean Corpuscular Hemoglobin Concent 34.2 G/DL (32.0-36.0) Red Cell Distribution Width 10.9 % (11.6-14.8) L Platelet Count 219 K/UL (150-450) Mean Platelet Volume 5.2 FL (6.5-10.1) L Neutrophils (%) (Auto) 54.8 % (45.0-75.0) Lymphocytes (%) (Auto) 31.2 % (20.0-45.0) Monocytes (%) (Auto) 10.8 % (1.0-10.0) H Eosinophils (%) (Auto) 2.0 % (0.0-3.0) Basophils (%) (Auto) 1.1 % (0.0-2.0) Prothrombin Time 11.8 SEC (9.30-11.50) H Prothromb Time International Ratio 1.1 (0.9-1.1) Activated Partial Thromboplast Time 27 SEC (23-33) Sodium Level 141 MMOL/L (136-145) Potassium Level 3.8 MMOL/L (3.5-5.1) Chloride Level 108 MMOL/L (98-107) H Carbon Dioxide Level 27 MMOL/L (21-32) Anion Gap 6 mmol/L (5-15) Blood Urea Nitrogen 7 mg/dL (7-18) Creatinine 0.8 MG/DL (0.55-1.30) Estimat Glomerular Filtration Rate mL/min (>60) Glucose Level 94 MG/DL (74-106) Calcium Level 8.5 MG/DL (8.5-10.1) Current Medications Medications (Trade) Dose Ordered Sig/Laura Route PRN Reason Start Time Stop Time Status Last Admin Dose Admin Acetaminophen (Tylenol) 650 mg Q4H PRN ORAL Mild Pain (Pain Scale 1-3) 05/04/18 13:00 05/04/18 19:00 Acetaminophen (Tylenol) 650 mg Q4HR PRN ORAL Mild Pain/Temp > 100.5 04/28/18 21:45 05/28/18 21:44 Ascorbic Acid (Vitamin C) 500 mg DAILY ORAL 04/29/18 09:00 05/29/18 08:59 05/02/18 09:00 Atorvastatin Calcium (Lipitor) 20 mg BEDTIME ORAL 05/02/18 21:00 05/28/18 20:59 05/03/18 20:40 Baclofen (Lioresal) 10 mg BID ORAL 04/29/18 09:00 05/29/18 08:59 05/03/18 17:02 Dextrose/Sodium Chloride 1,000 ml @ 80 mls/hr [id number] IV 04/28/18 23:00 05/28/18 22:59 05/04/18 04:26 Docusate Sodium (Colace) 100 mg TWICE A DAY ORAL 04/29/18 09:00 05/29/18 08:59 05/03/18 17:02 Escitalopram Oxalate (Lexapro) 10 mg DAILY ORAL 05/01/18 14:03 05/31/18 14:02 05/02/18 09:00 Ferrous Sulfate (Feosol) 325 mg DAILY ORAL 04/29/18 09:00 05/29/18 08:59 05/02/18 09:00 Heparin Sodium (Porcine) (Heparin 5000 units/ml) 5,000 units EVERY 12 HOURS SUBQ 04/28/18 22:10 05/28/18 22:09 05/03/18 20:41 Iopamidol (Isovue-300 100ml) 100 ml NOW PRN INJ Radiology Procedure 04/28/18 18:00 Lactulose (Cephulac) 10 gm THREE TIMES A DAY ORAL 04/29/18 09:00 05/29/18 08:59 05/03/18 17:02 Lactulose (Cephulac) 30 gm TID ORAL 04/29/18 09:00 05/29/18 08:59 05/03/18 17:02 Losartan Potassium (Cozaar) 25 mg BEDTIME ORAL 04/28/18 22:30 05/28/18 22:29 05/03/18 20:40 Nystatin (Nystatin) 5 ml QID ORAL 04/29/18 18:00 05/06/18 17:59 05/03/18 20:40 Pantoprazole (Protonix) 40 mg DAILY IV 04/29/18 09:00 05/29/18 08:59 05/02/18 09:00 Polyethylene Glycol (Miralax) 17 gm BEDTIME ORAL 04/29/18 21:00 05/29/18 20:59 05/03/18 20:39 Carlos Bonilla M.D. May 04, 2018 16:08
[2018-05-04] MEDS ORDERED: Tubing IV Secondary IV ONE (17:29)
--- NOTE | 2018-05-04 21:15 | Procedure Note ---
DATE OF PROCEDURE: 05/04/2018 SURGEON: Alex Combs M.D. ANESTHESIOLOGIST: Kashif OBRIEN. PROCEDURE: Upper endoscopy with PEG placement. ANESTHESIA: Per Kashif OBRIEN. INSTRUMENT: Olympus adult flexible upper endoscope. INDICATION: Failure to thrive. The procedure, risks, benefits, and possible consequences, including hemorrhage, aspiration, perforation and infection, and alternative treatments, were explained to the patient/legal guardian by Dr. Alex Combs and the patient/legal guardian understood and accepted these risks. DESCRIPTION OF PROCEDURE: After informed consent was obtained and the patient was adequately sedated, Olympus upper endoscope was advanced from the mouth into the second portion of the duodenum and retroflexion was performed in the stomach. Then, under endoscopic guidance, under sterile condition, a 20-Divehi pull type of G-tube was successfully placed in the epigastric area. The distance from the tip of the tube to the skin was about 2 cm in size. The patient tolerated the procedure very well without any complication. SUMMARY OF FINDINGS: Status post successful PEG placement. RECOMMENDATIONS: Abdominal binder. Elevate the head of the bed at all times. G-tube flush. G-tube care. Start tube feeding later today. The patient received a dose of antibiotic today. Alex Combs M.D. DR: [place] JOB#: [id number] CC:
--- NOTE | 2018-05-05 00:56 | Cardiology Report ---
APPROVED REPORT EKG Measurement Heart [id number] [id number] Normal sinus rhythm Right bundle branch block Left anterior fascicular block Bifascicular block Abnormal ECG
--- NOTE | 2018-05-05 11:04 | General Progress Note ---
Assessment/Plan Assessment/Plan encephalopathy due to [place] Depression failure to thrive Dementia the pt lacks capacity to make decisions/call for consent cont lexapro the pt was provided ro/st Subjective Date patient seen: May 04, 2018 Allergies: Coded Allergies: No Known Allergies (Unverified , 10/29/16) Subjective the pt not able to discuss rationally Objective Last 24 Hour Vital Signs Date Time Temp Pulse Resp B/P (MAP) Pulse Ox O2 Delivery O2 Flow Rate FiO2 05/04/18 16:00 97.7 69 20 126/86 (99) 100 97.7 05/04/18 13:10 98.0 88 18 124/89 98 Nasal Cannula 3 98.0 05/04/18 12:55 78 16 128/85 98 Nasal Cannula 3 05/04/18 12:46 208.2 63 16 98 05/04/18 12:43 80 18 122/82 98 Nasal Cannula 3 05/04/18 12:38 63 15 110/86 98 Nasal Cannula 3 05/04/18 12:33 97.9 63 16 115/72 98 Nasal Cannula 3 97.9 05/04/18 12:00 98.7 77 20 134/82 (99) 100 98.7 Intake and Output 05/04/18 05/05/18 19:00 07:00 Intake Total 810 ml Output Total 3 ml Balance 807 ml Intake Oral 0 ml IV Total 810 ml Output Urine Total 3 ml Height (Feet): 6 Height (Inches): 6.00 Weight (Pounds): 125 Vanessa Booker MD May 05, 2018 11:03
[2018-05-05 12:09] VITALS: BP 126/86
--- NOTE | 2018-05-05 12:09 | 48 Hour Post Anesthesia Eval ---
Post Anesthesia Evaluation Procedure: EGD with PEG placement Date of Evaluation: May 04, 2018 Time of Evaluation: 16:00 Blood Pressure Systolic: 126 0: 86 Pulse Rate: 69 Respiratory Rate: 20 Temperature (Fahrenheit): 97.7 O2 Sat by Pulse Oximetry: 100 Airway: patent Nausea: No Vomiting: No Pain Intensity: 0 Hydration Status: adequate Cardiopulmonary Status: stable, discharged back to senior living facility Mental Status/LOC: patient returned to baseline Follow-up Care/Observations: none Post-Anesthesia Complications: none Follow-up care needed: ready to discharge Rubina Rowland CRNA May 05, 2018 12:09
--- NOTE | 2018-05-05 14:13 | Discharge Summary ---
Discharge Summary Discharge Summary _ DATE OF ADMISSION: 04/28/2018 DATE OF DISCHARGE: 05/04/2018 CONSULTANTS: Dr. Alex Bonilla BRIEF HOSPITAL COURSE: Patient is a 77-year-old male, who presented to ED from residential facility, as patient became increasingly weak with poor appetite and difficulty eating and swallowing over the last several days. Patient has baseline dementia and unable to provide additional history. He has medical history significant for hypertension, asthma, COPD, GERD, dementia, hyperlipidemia and encephalopathy. On evaluation at ED, vital signs were stable. Blood work showed no leukocytosis , hemoglobin and hematocrit stable. BUN was elevated to 24, creatinine was normal. He had a EKG done that showed normal sinus rhythm with no acute ischemic changes. Chest x-ray showed lungs clear with questionable free air under the diaphragm. He then underwent KUB that showed no evidence of free air but significant fecal impaction. CT of the abdomen showed fecal impaction, with no signs of obstruction or free air. Due to failure to thrive and dehydration, patient was admitted for further workup. He was given IV hydration. He was noted to have oral thrush, suspect Carly esophagitis. He was given oral nystatin. HIV screen was negative. Hepatitis B and C negative. He was seen by GI. He was given bowel regimen. He underwent swallow evaluation and was recommended pured diet. He underwent psychiatric evaluation. Patient was assessed that the capacity to make decisions he was started on Lexapro. On 05/03/18, he underwent EGD with biopsy. The patient had no sign or symptoms of Carly esophagitis. In the stomach, there was atrophic gastritis. Pathology was negative for H.Pylori. On 05/04/2018, he underwent EGD with PEG tube placement. He was recommended to elevate head of bed at all times. Tube feeding was started. Blood cultures did not isolate any growth. He was recommended to continue oral nystatin for 1 week. He was eventually discharged back to intermediate. FINAL DIAGNOSES: Acute on chronic encephalopathy Head trauma status post fall Sinus bradycardia Hyperlipidemia Psychiatric disorder Dementia Gastritis Fecal impaction Dysphagia Status post EGD Encephalopathy due to general medical condition Depression Oral thrush possible Carly esophagitis Dehydration Constipation Failure to thrive DISPOSITION: Patient was discharged back to SNF. DISCHARGE MEDICATIONS: Refer to Discharge Medication List. I have been assigned to dictate discharge summary on this account, and I was not involved in the patient's management. Evie Main NP May 05, 2018 14:12
--- NOTE | 2018-05-05 15:36 | History & Physical ---
History and Physical History & Physicial Assessment/Plan SOURCE OF INFORMATION: The patient and EMR. HISTORY OF PRESENT ILLNESS: The patient is a 77-year-old male. The patient was found cachectic. difficulty swallowing.. The patient was transferred for further evaluation. At the time of evaluation, the patient is not verbally communicative, limited source of information. REVIEW OF SYSTEMS: Limited as above. PAST MEDICAL HISTORY: GERD, coronary artery disease, hypertension, lack of coordination, ataxia, general fatigue, and weakness. PAST SURGICAL HISTORY: Unobtainable. ALLERGIES: NKDA. MEDICATIONS: Current hospital medications including, but not limited to atorvastatin, losartan, and Namenda. FAMILY HISTORY: Reviewed and noncontributory. SOCIAL HISTORY: The patient is currently resident of the residential facility. Limited source of information. PHYSICAL EXAMINATION: VITAL SIGNS: Blood pressure 135/80, temperature 98.2, pulse rate 50 to 60, and respiratory rate 18-20. HEAD AND NECK: Positive for the left-sided periorbital edema and swelling. NEUROLOGIC: The patient is awake, alert, and oriented x1. The patient is noncommunicative verbally and grossly demented - at baseline. MUSCULOSKELETAL: No gross focal motor deficit. PSYCHIATRIC: Mood and affect are flat. ABDOMEN: Soft. No organomegaly. IMAGING: Imaging is still pending. LABORATORY DATA: reviewed ASSESSMENT AND PLAN: 1. Acute encephalopathy. 2. Head trauma, status post fall. 3. Sinus bradycardia. 4. Hyperlipidemia. 5. Psychiatric disorder. 6. Dementia. 7. Gastrointestinal and deep vein thrombosis prophylaxis. PLAN OF CARE: Nephro, GI and Infection are consulted Speech and swallow Daisy Clark MD May 05, 2018 15:36
== END 2018-05-04 17:30 | DRG 71 ==
LOC: EDBD 16:40 → EMR 17:12 → 4E 17:20 → EDBEDREQ 18:10 → 4E 04-30 14:00
PROC: 0DB78ZX Excision of Stomach, Pylorus, Via Natural or Artificial Opening Endoscopic, Diagnostic (ICD-10-PCS; principal; 2018-05-03 11:26)
PROC: 0DH63UZ Insertion of Feeding Device into Stomach, Percutaneous Approach (ICD-10-PCS; 2018-05-04)
DX: G93.40 Encephalopathy, unspecified (principal); B37.0 Candidal stomatitis; E86.0 Dehydration; S09.90XA Unspecified injury of head, initial encounter; W19.XXXA Unspecified fall, initial encounter; Y92.129 Unspecified place in nursing home as the place of occurrence of the external cause; I10 Essential (primary) hypertension; J44.9 Chronic obstructive pulmonary disease, unspecified; K21.9 Gastro-esophageal reflux disease without esophagitis; F03.90 Unspecified dementia, unspecified severity, without behavioral disturbance, psychotic disturbance, mood disturbance, and anxiety; E78.5 Hyperlipidemia, unspecified; R00.1 Bradycardia, unspecified; F99 Mental disorder, not otherwise specified; R62.7 Adult failure to thrive; K29.70 Gastritis, unspecified, without bleeding; K56.41 Fecal impaction; R26.81 Unsteadiness on feet; I25.10 Atherosclerotic heart disease of native coronary artery without angina pectoris; K80.80 Other cholelithiasis without obstruction; D64.9 Anemia, unspecified; R13.10 Dysphagia, unspecified
CPT/HCPCS: 36415; 71045; 74018; 74177; 80048; 80053; 81003; 82270; 82607; 82746; 83540; 83550; 83690; 84443; 85025; 85610; 85730; 86592; 86703; 86803; 86850; 86900; 86901; 87040; 87081; 87340; 93005; 94003; 94150

== ENCOUNTER 2018-06-24 13:00 | Emergency (ER) | payer MEDICARE, MEDICAID ==
[~2018-06-24] VITALS: Ht 188 cm; Wt 63.5 kg
[~2018-06-24 13:00] MED LIST changes: +BACLOFEN10 MG ORAL; +LACTULOSE20 GM/301 ORAL; +MEGESTROL400 MG/11 PO; +MELATONIN 3 MG1 EAC1 PO; +MELATONIN3 MG ORAL; +NYSTATIN100000 UN1 ORAL; +VITAMIN B-1000.4 MG PO
[2018-06-24 13:28] VITALS: BP 103/88
[2018-06-24] MEDS ORDERED: Gastrograffin 30ml ORAL ONE (14:00)
--- NOTE | 2018-06-24 14:50 | Emergency Room Report ---
History of Present Illness General Chief Complaint: Malfunctioning Gastric Tube Source: Medical Record, EMS Present Illness HPI Patient is a 77-year-old male brought in by EMS after accidentally pulling his G -tube. Patient was noted to have prior history of dementia. He is G-tube dependent. The patient was sent in for G-tube replacement. Allergies: Coded Allergies: No Known Allergies (Unverified , 06/24/18) Patient History Past Medical History: see triage record Reviewed Nursing Documentation: PMH: Agreed; PSxH: Agreed Nursing Documentation-PMH Past Medical History: No History, Except For Hx Cardiac Problems: Yes - Hyperlipidemia, Bradycardia Hx Hypertension: Yes Hx Asthma: Yes Hx COPD: Yes Hx Cancer: No Hx Gastrointestinal Problems: Yes - GERD Hx Neurological Problems: Yes - Encephalopathy, Dementia Hx Weakness: Yes Hx Fatigue: Yes Review of Systems All Other Systems: limited - by mental status Physical Exam Vital Signs Date Time Temp Pulse Resp B/P (MAP) Pulse Ox O2 Delivery O2 Flow Rate FiO2 06/24/18 13:03 97.7 62 18 103/88 92 Room Air 97.7 General Appearance: thin, Chronically Ill Head: normocephalic Neck: limited range of motion Respiratory: lungs clear Cardiovascular #1: normal peripheral pulses Gastrointestinal: other - stoma with no erythema or drainage Musculoskeletal: decreased range of mation Neurologic: alert Skin: normal color, no rash Medical Decision Making Diagnostic Impression: Primary Impression: Feeding by G-tube ER Course Patient presented for G-tube replacement. Gastrostomy tube was replaced with 16 english Gtube at 4 cm at skin with sterile technique. Balloon inflated to 20 cm with sterile water. Post procedure x-ray showed adequate gastrostomy tube placement. Patient tolerated well without complications. The patient was discharged back to senior care. Patient was return for persistent vomiting, other concerns. Last Vital Signs Date Time Temp Pulse Resp B/P (MAP) Pulse Ox O2 Delivery O2 Flow Rate FiO2 06/24/18 13:28 97.7 77 18 103/88 95 Room Air 97.7 Status: improved Disposition: [facility] Condition: Stable Referrals: Daisy Bronson MD (PCP) Patient Instructions: Gastrostomy Tube Replacement, Care After Aubrey Parker MD Jun 24, 2018 14:50
[2018-06-24 15:18] VITALS: BP 103/88
--- NOTE | 2018-06-24 15:41 | Diagnostic Imaging Report ---
EXAM: XR Abdomen, 2 Views CLINICAL HISTORY: Tube placement TECHNIQUE: Frontal view of the abdomen/pelvis with upright view of the abdomen. COMPARISON: Abdominal x-ray dated 04/28/18. FINDINGS: Intraperitoneal space: No definite free air. Gastrointestinal tract: Generalized colonic fecal retention may suggest constipation. Diffuse gaseous distention of small bowel loops. Bones/joints: Unremarkable. Tubes, lines and devices: Percutaneous tube balloon and tip in the region of the gastric body. Small volume of contrast seen in the stomach without evidence of extra luminal contrast. IMPRESSION: 1. Percutaneous tube balloon and tip in the region of the gastric body. Small volume of contrast seen in the stomach without evidence of extra luminal contrast. 2. Generalized colonic fecal retention may suggest constipation. 3. Nonspecific diffuse gaseous distention of small bowel loops.
== END 2018-06-24 15:20 ==
LOC: EDUNIT# 13:00 → EDBD 13:00 → EMR 13:33
DX: K94.23 Gastrostomy malfunction (principal); F03.90 Unspecified dementia, unspecified severity, without behavioral disturbance, psychotic disturbance, mood disturbance, and anxiety; I10 Essential (primary) hypertension; E78.5 Hyperlipidemia, unspecified
CPT/HCPCS: 43752; 74018; 99284; Q9963

== ENCOUNTER 2018-10-06 12:16 | Emergency (ER) | payer MEDICARE, OTHER, MEDICAID ==
[~2018-10-06] VITALS: Ht 180.3 cm; Wt 72.6 kg
[~2018-10-06 12:16] MED LIST changes: +BACLOFEN10 MG GT; -BACLOFEN10 MG ORAL; +DOCUSATE SODIU100 MG GT; +LACTULOSE20 GM/301 GT; -LACTULOSE20 GM/301 ORAL; +MELATONIN3 MG GT; -MELATONIN3 MG ORAL; +NAMENDA5 MG GT; +TYLENOL325 MG GT; -TYLENOL325 MG ORAL
[2018-10-06] MEDS ORDERED: LACTULOSE10 GM/155 GT (12:32)
[2018-10-06] MEDS ORDERED: FERROUS SU15 MG/1 M1 GT (12:32)
[2018-10-06] MEDS ORDERED: NAMENDA5 MG GT (12:32)
[2018-10-06] MEDS ORDERED: ATORVASTATIN CA20 MG GT (12:32)
[2018-10-06] MEDS ORDERED: MELATONIN3 M1 GT (12:32)
[2018-10-06] MEDS ORDERED: ACETAMINOPHEN120 MG GT (12:32)
[2018-10-06] MEDS ORDERED: BACLOFEN5 MG GT (12:32)
[2018-10-06] MEDS ORDERED: MULTI-DELYN237 ML GT (12:32)
[2018-10-06] MEDS ORDERED: LOSARTAN POTAS100 MG GT (12:32)
[2018-10-06] MEDS ORDERED: VITAMIN C500 M1 GT (12:32)
--- NOTE | 2018-10-06 13:00 | NUR ---
ED Nurse Note:pt. was BIBA from SNF for GT replacement, it was replaced by MARIE PORTER with FR 14, x-ray done to check for placement, GT is OK to use and pt. can go back to SNF
--- NOTE | 2018-10-06 13:02 | Emergency Room Report ---
History of Present Illness General Chief Complaint: Malfunctioning Gastric Tube Source: EMS Present Illness HPI The patient's gastrostomy tube was dislodged at the assisted facility. They inserted a Daniels catheter. No history of fevers, chills, vomiting or pain. The patient is unable to provide a history. The patient was admitted April 2018 with these discharge diagnoses: Acute on chronic encephalopathy Head trauma status post fall Sinus bradycardia Hyperlipidemia Psychiatric disorder Dementia Gastritis Fecal impaction Dysphagia Status post EGD Encephalopathy due to general medical condition Depression Oral thrush possible Carly esophagitis Dehydration Constipation Failure to thrive Allergies: Coded Allergies: No Known Allergies (Unverified , 06/24/18) Patient History Limited by: medical condition Past Medical History: see triage record, old chart reviewed Past Surgical History: other - Gastrostomy tube Social History: Denies: smoking, alcohol use, drug use Social History Narrative longterm facility Reviewed Nursing Documentation: PMH: Agreed; PSxH: Agreed Nursing Documentation-PMH Hx Cardiac Problems: Yes - Hyperlipidemia, Bradycardia Hx Hypertension: Yes Hx Asthma: Yes Hx COPD: Yes Hx Cancer: No Hx Gastrointestinal Problems: Yes - GERD Hx Neurological Problems: Yes - Encephalopathy, Dementia Hx Weakness: Yes Hx Fatigue: Yes Review of Systems All Other Systems: limited Physical Exam Vital Signs Date Time Temp Pulse Resp B/P (MAP) Pulse Ox O2 Delivery O2 Flow Rate FiO2 10/06/18 12:18 97.5 88 15 129/85 98 Room Air Sp02 EP Interpretation: reviewed, normal General Appearance: no apparent distress, thin, Chronically Ill Head: normocephalic, atraumatic Eyes: bilateral eye normal inspection, bilateral eye PERRL ENT: hearing grossly normal, moist mucus membranes Neck: full range of motion, supple Respiratory: no respiratory distress, speaking full sentences Cardiovascular #1: regular rate, rhythm Cardiovascular #2: 2+ radial (R) Gastrointestinal: non tender, soft, other - Daniels and gastrostomy tube site, scaphoid Musculoskeletal: other Neurologic: alert, motor weakness - Generalized, other Psychiatric: mood/affect normal, other - Looks at examiner but does not speak some combativeness with staff Skin: no rash Procedures Additional Procedure Procedure Narrative Daniels removed. 14 FR tube inserted with ease. Tolerated well. Medical Decision Making Diagnostic Impression: Primary Impression: Malfunction of gastrostomy tube Additional Impression: Dementia Qualified Codes: F03.90 - Unspecified dementia without behavioral disturbance ER Course Patient presents with dislodgment of gastrostomy tube. Gastrostomy tube replaced. Post tube placement x-ray reveals contrast in the GI tract. Patient is stable for outpatient observation and treatment CT/MRI/US Diagnostic Results CT/MRI/US Diagnostic Results : Imaging Test Ordered: Abdomen Impression Gastrografin and gastrointestinal tract without leak. Last Vital Signs Date Time Temp Pulse Resp B/P (MAP) Pulse Ox O2 Delivery O2 Flow Rate FiO2 10/06/18 15:01 97.5 89 17 113/80 98 Room Air Status: improved Disposition: XFER SNF Condition: Stable Referrals: Daisy Bronson MD (PCP) Nawaf Johnson MD Oct 06, 2018 13:02
[2018-10-06 13:19] VITALS: BP 129/85
--- NOTE | 2018-10-06 14:23 | Diagnostic Imaging Report ---
Indication: Gastrostomy placement Technique: Supine view of the abdomen after injection of water-soluble contrast into gastrostomy Comparison: 06/24/2018 Findings: Contrast opacifies the stomach. No contrast extravasation is demonstrated. The bowel gas pattern is unremarkable. There is possibly a small duodenal diverticulum incidentally noted Impression: Satisfactory position of gastrostomy tube
--- NOTE | 2018-10-06 15:00 | NUR ---
ED Nurse Note:pt. was picked up by [facility] for transfer back to SNF, condition stable
[2018-10-06 15:01] VITALS: BP 113/80
== END 2018-10-06 15:11 ==
LOC: EDBD 12:16 → EDUNIT# 12:16 → EMR 12:35
DX: K94.23 Gastrostomy malfunction (principal); Y83.3 Surgical operation with formation of external stoma as the cause of abnormal reaction of the patient, or of later complication, without mention of misadventure at the time of the procedure; Y92.129 Unspecified place in nursing home as the place of occurrence of the external cause; F03.90 Unspecified dementia, unspecified severity, without behavioral disturbance, psychotic disturbance, mood disturbance, and anxiety; J44.9 Chronic obstructive pulmonary disease, unspecified; K21.9 Gastro-esophageal reflux disease without esophagitis; I10 Essential (primary) hypertension
CPT/HCPCS: 43762; 74018; 99283; Q9963

== ENCOUNTER 2018-11-04 13:14 | Emergency (ER) | payer MEDICARE, OTHER ==
[~2018-11-04] VITALS: Ht 182.9 cm; Wt 77.1 kg
[~2018-11-04 13:14] MED LIST changes: +ACETAMINOPHEN120 MG GT; +ATORVASTATIN CA20 MG GT; +BACLOFEN5 MG GT; +FERROUS SU15 MG/1 M1 GT; +LACTULOSE10 GM/155 GT; +LOSARTAN POTAS100 MG GT; +MELATONIN3 M1 GT; +MULTI-DELYN237 ML GT; +VITAMIN C500 M1 GT
[2018-11-04 13:25] VITALS: BP 122/60
--- NOTE | 2018-11-04 13:38 | Emergency Room Report ---
History of Present Illness General Chief Complaint: Malfunctioning Gastric Tube Source: EMS Present Illness HPI Patient is a 77-year-old male presented after G-tube was dislodged. Patient had a Daniels catheter placed in the stoma. patient been noted to be chronically debilitated and is fed by G-tube. Patient was noted to have a 16 [place] Daniels in the stoma Allergies: Coded Allergies: No Known Allergies (Unverified , 06/24/18) Patient History Past Medical History: see triage record Reviewed Nursing Documentation: PMH: Agreed; PSxH: Agreed Nursing Documentation-PMH Past Medical History: No History, Except For Hx Cardiac Problems: Yes - Hyperlipidemia, Bradycardia Hx Hypertension: Yes Hx Asthma: Yes Hx COPD: Yes Hx Cancer: No Hx Gastrointestinal Problems: Yes - GERD Hx Neurological Problems: Yes - Encephalopathy, Dementia Hx Weakness: Yes Hx Fatigue: Yes Review of Systems All Other Systems: limited - by mental status Physical Exam Vital Signs Date Time Temp Pulse Resp B/P (MAP) Pulse Ox O2 Delivery O2 Flow Rate FiO2 11/04/18 13:18 97.3 71 18 122/60 95 Room Air General Appearance: well appearing, no apparent distress, alert, GCS 15 Head: normocephalic, atraumatic ENT: hearing grossly normal, normal voice Neck: full range of motion, supple Respiratory: no respiratory distress, speaking full sentences Gastrointestinal: normal inspection, normal bowel sounds, other - stoma patent Neurologic: alert, responsive, other - confusion Psychiatric: mood/affect normal Skin: no rash Medical Decision Making Diagnostic Impression: Primary Impression: Dementia Additional Impression: PEG (percutaneous endoscopic gastrostomy) adjustment/replacement/removal ER Course Patient presented for G-tube replacement. Gastrostomy tube was replaced with sterile technique with a 16 [place] tube balloon was inflated to 20 cc with sterile water depth 4 cm at the skin. Post procedure x-ray showed adequate gastrostomy tube placement. Patient tolerated well without complications. The patient was discharged back to [facility]. Patient was return for persistent vomiting, other concerns. Last Vital Signs Date Time Temp Pulse Resp B/P (MAP) Pulse Ox O2 Delivery O2 Flow Rate FiO2 11/04/18 13:18 97.3 71 18 122/60 95 Room Air Status: improved Disposition: HOME, SELF-CARE Condition: Stable Aubery Parker MD Nov 04, 2018 13:38
[2018-11-04 16:14] VITALS: BP 115/72
[2018-11-04 17:34] VITALS: BP 122/75
[2018-11-04] MEDS ORDERED: DICLOFENAC SOD100 GM TDERMAL (17:56)
[2018-11-04] MEDS ORDERED: ASCORBIC ACID500 MG GT (17:56)
[2018-11-04] MEDS ORDERED: FERROUS SU325 MG/5 M GT (18:00)
== END 2018-11-04 17:34 | disposition home or self-care (01) ==
LOC: EDBD 13:14 → EMR 13:40
DX: F03.90 Unspecified dementia, unspecified severity, without behavioral disturbance, psychotic disturbance, mood disturbance, and anxiety (principal); Z43.1 Encounter for attention to gastrostomy; I10 Essential (primary) hypertension; E78.5 Hyperlipidemia, unspecified; J44.9 Chronic obstructive pulmonary disease, unspecified; K21.9 Gastro-esophageal reflux disease without esophagitis
CPT/HCPCS: 74018; 99282